=== PATIENT | male | born 1935 | race Caucasian/White ===

== ENCOUNTER 2018-03-09 21:39 | Emergency (ER) | payer MEDICARE, OTHER ==
--- NOTE | 2018-03-09 23:07 | EDM.PDOC ---
ED HPI GENERAL MEDICAL PROBLEM - General Chief Complaint: ENT Problem Stated Complaint: BLOODY NOSE THAT HAS LASTED THROUGHOUT THE DAY. Time Seen by Provider: 03/09/18 21:41 Source of Information: Reports: Patient, Family History Limitations: Reports: No Limitations - History of Present Illness INITIAL COMMENTS - FREE TEXT/NARRATIVE: HISTORY AND PHYSICAL: History of present illness: 83-year-old male presenting emergency department she complained of nosebleed 1 day on Coumadin. Patient states that this morning he began having nosebleeds his left nostril. He has history of this previously. He is on Coumadin for A. fib. Patient states that the nosebleed did stop however then restarted again this evening. At this time the nosebleed has stopped. He denies any other recent symptoms. He denies any lightheadedness, dizziness, or as other signs of anemia. Otherwise patient is healthy. He denies any chest pain, palpitations, shortness of breath, syncopal episodes, or focal neurologic deficits. On exam there is no active bleeding in the left naris. There is quite elated blood in the nostril. Review of systems: As per history of present illness and below otherwise all systems reviewed and negative. Past medical history: As per history of present illness and as reviewed below otherwise noncontributory. Surgical history: As per history of present illness and as reviewed below otherwise noncontributory. Social history: No reported history of drug or alcohol abuse. Family history: As per history of present illness and as reviewed below otherwise noncontributory. Physical exam: HEENT: Atraumatic, normocephalic, pupils reactive, negative for conjunctival pallor or scleral icterus, mucous membranes moist, throat clear, neck supple, nontender, trachea midline. Lungs: Clear to auscultation, breath sounds equal bilaterally, chest nontender. Heart: S1S2, regular, negative for clicks, rubs, or JVD. Abdomen: Soft, nondistended, nontender. Negative for masses or hepatosplenomegaly. Negative for costovertebral tenderness. Pelvis: Stable nontender. Genitourinary: Deferred. Rectal: Deferred. Extremities: Atraumatic, negative for cords or calf pain. Neurovascular unremarkable. Neuro: Awake, alert, oriented. Cranial nerves II through XII unremarkable. Cerebellum unremarkable. Motor and sensory unremarkable throughout. Exam nonfocal. Diagnostics: CBC, BMP, INR Therapeutics: Nasal clip Impression: Epistasis on Coumadin Plan: Patient's INR was 2.9. I did discuss this with him and told him to follow-up with his primary care provider Dr. Ramirez on Saturday. He currently is not having a nosebleed so we did not do any manipulation so as not to disturb the clot that had formed. Did give him nasal clip for at home and told him to use cold compress on the nose to help with coagulation. He should return to emergency department if any new or worsening symptoms. Definitive disposition and diagnosis as appropriate pending reevaluation and review of above. - Related Data Allergies Allergy/AdvReac Type Severity Reaction Status Date / Time No Known Allergies Allergy Verified 03/09/18 22:10 Home Meds: Home Meds Acetaminophen [Tylenol Extra Strength] 1,000 mg PO Q6H PRN 10/24/13 [History] Aspirin/Calcium Carbonate/Mag [Aspirin Buffered 325 mg Tab] 325 mg PO DAILY [History] Calcium Carbonate 600 mg PO DAILY 10/24/13 [History] Diltiazem HCl [Dilt-Xr] 180 mg PO DAILY 10/24/13 [History] Multivitamin [Multivitamins] 1 each PO DAILY 10/24/13 [History] [place]-3 Fatty Acids/DHA/EPA [Megared Plant-[place] 300 mg Cap] 300 mg PO DAILY [History] Sotalol [Betapace, Sorine] 160 mg PO BID 10/24/13 [History] Triamterene/Hydrochlorothiazid [Triamterene-HCTZ 37.5-25 MG] 1 each PO DAILY [History] atorvaSTATin [Lipitor] 10 mg PO BEDTIME 10/24/13 [History] Past Medical History Cardiovascular History: Reports: Afib, Hypertension - Infectious Disease History Infectious Disease History: Reports: Chicken Pox Social & Family History - Tobacco Use Smoking Status *Q: Former Smoker Used Tobacco, but Quit: Yes Month/Year Tobacco Last Used: 1969 - Caffeine Use Caffeine Use: Reports: Coffee, Tea - Recreational Drug Use Recreational Drug Use: No ED ROS GENERAL - Review of Systems Review Of Systems: ROS reveals no pertinent complaints other than HPI. ED EXAM, GENERAL - Physical Exam Exam: See Below Course - Vital Signs Last Recorded V/S: Last Vital Signs Temp 98.3 F 03/09/18 22:07 Pulse 123 H 03/09/18 22:07 Resp 12 03/09/18 22:07 BP 119/77 03/09/18 22:07 Pulse Ox 93 L 03/09/18 22:07 - Orders/Labs/Meds Labs: Laboratory Tests 03/09/18 03/09/18 03/09/18 Range/Units 22:20 22:20 22:20 WBC 10.48 (4.0-11.0) K/uL RBC 4.16 L (4.50-5.90) M/uL Hgb 12.3 L (13.0-17.0) g/dL Hct 37.7 L (38.0-50.0) % MCV 90.6 (80.0-98.0) fL MCH 29.6 (27.0-32.0) pg MCHC 32.6 (31.0-37.0) g/dL RDW Std Deviation 47.9 (28.0-62.0) fl RDW Coeff of Heydi 15 (11.0-15.0) % Plt Count 188 (150-400) K/uL MPV 11.30 (7.40-12.00) fL Neut % (Auto) 69.5 (48.0-80.0) % Lymph % (Auto) 18.8 (16.0-40.0) % [place] % (Auto) 10.9 (0.0-15.0) % Eos % (Auto) 0.6 (0.0-7.0) % Baso % (Auto) 0.2 (0.0-1.5) % Neut # (Auto) 7.3 H (1.4-5.7) K/uL Lymph # (Auto) 2.0 (0.6-2.4) K/uL [place] # (Auto) 1.1 H (0.0-0.8) K/uL Eos # (Auto) 0.1 (0.0-0.7) K/uL Baso # (Auto) 0.0 (0.0-0.1) K/uL Nucleated RBC % 0.0 /100WBC Nucleated RBCs # 0 K/uL INR 2.92 Sodium 137 (136-148) mmol/L Potassium 3.9 (3.5-5.1) mmol/L Chloride 101 (98-107) mmol/L Carbon Dioxide 25.1 (21.0-32.0) mmol/L BUN 28 H (7.0-18.0) mg/dL Creatinine 1.6 H (0.8-1.3) mg/dL Est Cr Clr Drug Dosing 33.85 mL/min Estimated GFR (MDRD) 41.7 ml/min Glucose 202 H (74-106) mg/dL Calcium 9.9 (8.5-10.1) mg/dL Departure - Departure Time of Disposition: 23:06 Disposition: Home, Self-Care 01 Condition: Good Clinical Impression: Epistaxis - Discharge Information Referrals: PCP,None [Primary Care Provider] - Additional Instructions: My general discharge The following information is given to patients seen in the emergency department who are being discharged to home. This information is to outline your options for follow-up care. We provide all patients seen in our emergency department with a follow-up referral. The need for follow-up, as well as the timing and circumstances, are variable depending upon the specifics of your emergency department visit. If you don't have a primary care physician on staff, we will provide you with a referral. We always advise you to contact your personal physician following an emergency department visit to inform them of the circumstance of the visit and for follow-up with them and/or the need for any referrals to a consulting specialist. The emergency department will also refer you to a specialist when appropriate. This referral assures that you have the opportunity for follow-up care with a specialist. All of these measure are taken in an effort to provide you with optimal care, which includes your follow-up. Under all circumstances we always encourage you to contact your private physician who remains a resource for coordinating your care. When calling for follow-up care, please make the office aware that this follow-up is from your recent emergency room visit. If for any reason you are refused follow-up, please contact the [facility] Emergency Department at and asked to speak to the emergency department charge nurse. [address] [address] Follow-up with Dr. Ramirez on Saturday as we discussed. Your INR today was 2.9. May use cold compress unnoticed to help with coagulation as well as nasal clip. Return emergency department if any new or worsening symptoms.
== END 2018-03-09 23:22 | disposition home or self-care (01) ==
LOC: MW.ED 21:39
DX: R04.0 Epistaxis (principal); I48.91 Unspecified atrial fibrillation; Z79.01 Long term (current) use of anticoagulants; I10 Essential (primary) hypertension; Z79.82 Long term (current) use of aspirin; Z79.899 Other long term (current) drug therapy; Z87.891 Personal history of nicotine dependence
CPT/HCPCS: 36415; 80048; 85025; 85610; 99282; 99283

== ENCOUNTER 2018-03-10 04:25 | Emergency (ER) | payer MEDICARE, OTHER ==
--- NOTE | 2018-03-10 04:31 | EDM.PDOC ---
ED HPI GENERAL MEDICAL PROBLEM - General Stated Complaint: BLOODY NOSE Time Seen by Provider: 03/10/18 04:30 Source of Information: Reports: Patient History Limitations: Reports: No Limitations - History of Present Illness INITIAL COMMENTS - FREE TEXT/NARRATIVE: HISTORY AND PHYSICAL: History of present illness: 83-year-old male presenting the emergency department with epistasis on Coumadin. Patient was here earlier this evening with epistasis however bleeding had stopped dairy and he is on Coumadin for A. fib. We did get CBC as well as INR. At that time CBC was unremarkable and INR was 2.9. He normally runs around 2.4. Patient's nosebleed had stopped on its own so patient was discharged with nasal clip and instructions to use cold pack and refrain from blowing nose and follow- up with primary care provider. Patient states around 4:00 this morning he awoke and the leading had started again. It is predominantly from the left nostril. He denies any lightheadedness or other symptoms. On exam there is mild bleeding coming from the left naris. Review of systems: As per history of present illness and below otherwise all systems reviewed and negative. Past medical history: As per history of present illness and as reviewed below otherwise noncontributory. Surgical history: As per history of present illness and as reviewed below otherwise noncontributory. Social history: No reported history of drug or alcohol abuse. Family history: As per history of present illness and as reviewed below otherwise noncontributory. Physical exam: HEENT: Atraumatic, normocephalic, pupils reactive, negative for conjunctival pallor or scleral icterus, mucous membranes moist, throat clear, neck supple, nontender, trachea midline. Lungs: Clear to auscultation, breath sounds equal bilaterally, chest nontender. Heart: S1S2, regular, negative for clicks, rubs, or JVD. Abdomen: Soft, nondistended, nontender. Negative for masses or hepatosplenomegaly. Negative for costovertebral tenderness. Pelvis: Stable nontender. Genitourinary: Deferred. Rectal: Deferred. Extremities: Atraumatic, negative for cords or calf pain. Neurovascular unremarkable. Neuro: Awake, alert, oriented. Cranial nerves II through XII unremarkable. Cerebellum unremarkable. Motor and sensory unremarkable throughout. Exam nonfocal. Diagnostics: [] Therapeutics: Rhino Rocket Impression: Epistasis Plan: Please see H&P. Patient had epistasis continually from the left Song. I did insert a Rhino Rocket without complication. Patient was instructed to return in 24 hours for removal and reexamination. He was discharged in good condition with instructions to follow-up with primary care as well as possible ear nose and throat if epistasis still uncontrolled. Definitive disposition and diagnosis as appropriate pending reevaluation and review of above. - Related Data Allergies Allergy/AdvReac Type Severity Reaction Status Date / Time No Known Allergies Allergy Verified 03/09/18 22:10 Home Meds: Home Meds Acetaminophen [Tylenol Extra Strength] 1,000 mg PO Q6H PRN 10/24/13 [History] Aspirin/Calcium Carbonate/Mag [Aspirin Buffered 325 mg Tab] 325 mg PO DAILY [History] Calcium Carbonate 600 mg PO DAILY 10/24/13 [History] Diltiazem HCl [Dilt-Xr] 180 mg PO DAILY 10/24/13 [History] Multivitamin [Multivitamins] 1 each PO DAILY 10/24/13 [History] [place]-3 Fatty Acids/DHA/EPA [Megared Plant-[place] 300 mg Cap] 300 mg PO DAILY [History] Sotalol [Betapace, Sorine] 160 mg PO BID 10/24/13 [History] Triamterene/Hydrochlorothiazid [Triamterene-HCTZ 37.5-25 MG] 1 each PO DAILY [History] atorvaSTATin [Lipitor] 10 mg PO BEDTIME 10/24/13 [History] Past Medical History Cardiovascular History: Reports: Afib, Hypertension - Infectious Disease History Infectious Disease History: Reports: Chicken Pox Social & Family History - Caffeine Use Caffeine Use: Reports: Coffee, Tea ED ROS GENERAL - Review of Systems Review Of Systems: ROS reveals no pertinent complaints other than HPI. ED EXAM, GENERAL - Physical Exam Exam: See Below Course - Vital Signs Last Recorded V/S: Last Vital Signs Temp 97.8 F 03/10/18 04:37 Pulse 110 H 03/10/18 04:37 Resp 16 03/10/18 04:37 BP 129/83 03/10/18 04:37 Pulse Ox 94 L 03/10/18 04:37 Departure - Departure Time of Disposition: 04:46 Disposition: Home, Self-Care 01 Condition: Good Clinical Impression: Epistaxis - Discharge Information Referrals: PCP,None [Primary Care Provider] - Additional Instructions: My general discharge The following information is given to patients seen in the emergency department who are being discharged to home. This information is to outline your options for follow-up care. We provide all patients seen in our emergency department with a follow-up referral. The need for follow-up, as well as the timing and circumstances, are variable depending upon the specifics of your emergency department visit. If you don't have a primary care physician on staff, we will provide you with a referral. We always advise you to contact your personal physician following an emergency department visit to inform them of the circumstance of the visit and for follow-up with them and/or the need for any referrals to a consulting specialist. The emergency department will also refer you to a specialist when appropriate. This referral assures that you have the opportunity for follow-up care with a specialist. All of these measure are taken in an effort to provide you with optimal care, which includes your follow-up. Under all circumstances we always encourage you to contact your private physician who remains a resource for coordinating your care. When calling for follow-up care, please make the office aware that this follow-up is from your recent emergency room visit. If for any reason you are refused follow-up, please contact the [facility] Emergency Department at and asked to speak to the emergency department charge nurse. [facility] Specialty [facility] - ENT Professional Building [address] [place] [address], [address] [place] [address] [address] Please call and follow-up with Dr. Ramirez on Saturday. Return to the emergency department in 24 hours for reexamination and possible removal of Rhino Rocket. Return to emergency department for any new or worsening symptoms.
== END 2018-03-10 06:07 | disposition home or self-care (01) ==
LOC: MW.ED 04:25
DX: R04.0 Epistaxis (principal); I48.91 Unspecified atrial fibrillation; I10 Essential (primary) hypertension; Z79.01 Long term (current) use of anticoagulants; Z79.82 Long term (current) use of aspirin; Z79.899 Other long term (current) drug therapy
CPT/HCPCS: 99283

== ENCOUNTER 2018-03-11 19:10 | Emergency (ER) | payer MEDICARE, OTHER ==
--- NOTE | 2018-03-11 19:44 | EDM.PDOC ---
ED HPI GENERAL MEDICAL PROBLEM - General Chief Complaint: ENT Problem Stated Complaint: NOSE BLEEDING REMOVE Time Seen by Provider: 03/11/18 19:36 Source of Information: Reports: Patient History Limitations: Reports: No Limitations - History of Present Illness INITIAL COMMENTS - FREE TEXT/NARRATIVE: HISTORY AND PHYSICAL: History of present illness: Patient is an 83-year-old male who presents to the emergency room today for nasal packing removal. Patient was seen on 02/06/2018 and again database management specialist of for epistaxis of the left there. Patient does take Coumadin for atrial fibrillation. Labs and nasal packing was done on 03/10. Since that time patient states he has not noted any posterior nasal drainage or spitting up of blood. He offers no current complaints or concerns. Review of systems: As per history of present illness and below otherwise all systems reviewed and negative. Past medical history: As per history of present illness and as reviewed below otherwise noncontributory. Surgical history: As per history of present illness and as reviewed below otherwise noncontributory. Social history: No reported history of drug or alcohol abuse. Family history: As per history of present illness and as reviewed below otherwise noncontributory. Physical exam: General: Well-developed and well-nourished 83-year-old male. Alert and oriented. Nontoxic appearing and in no acute distress. HEENT: Atraumatic, normocephalic, pupils equal and reactive bilaterally, negative for conjunctival pallor or scleral icterus, nasal packing noted to left there (balloon/rhino rocket), mucous membranes moist, throat clear, neck supple, nontender, trachea midline. No drooling or trismus noted. No meningeal signs Lungs: Clear to auscultation, breath sounds equal bilaterally, chest nontender. Heart: S1S2, regular rate and rhythm without overt murmur Abdomen: Soft, nondistended, nontender. Negative for masses or hepatosplenomegaly. Negative for costovertebral tenderness. Pelvis: Stable nontender. Genitourinary: Deferred. Rectal: Deferred. Skin: Intact, warm, dry. No lesions or rashes noted. Extremities: Atraumatic, negative for cords or calf pain. Neurovascular unremarkable. Neuro: Awake, alert, oriented. Cranial nerves II through XII unremarkable. Cerebellum unremarkable. Motor and sensory unremarkable throughout. Exam nonfocal. Notes: Air was removed from the Rhino Rocket. The nasal packing was easily removed from the left knee air. Patient was allowed to rest with directions for approximately 30 minutes. The nare was reevaluated, no bleeding noted. We discussed supportive care measures and how to prevent future nosebleeds while at home. He will follow-up with his primary care provider in the next 1-2 days. Both patient and voice understanding and are agreeable to plan of care. They deny any further questions or concerns at this time. Diagnostics: None Therapeutics: Removal of Nasal packing Prescription: None Impression: Encounter for nasal packing removal Plan: 1. Avoid blowing your nose or any forceful activities that may cause your nose to rebleed (picking at nose, holding in a sneeze, heavy lifting, etc...) 2. You may use some Vaseline around the external nares. 3. Please follow-up with your primary care provider for further evaluation and management in the next 1-2 days. Return to the ED as needed and as discussed. Definitive disposition and diagnosis as appropriate pending reevaluation and review of above. - Related Data Allergies Allergy/AdvReac Type Severity Reaction Status Date / Time No Known Allergies Allergy Verified 03/11/18 19:25 Home Meds: Home Meds Acetaminophen [Tylenol Extra Strength] 1,000 mg PO Q6H PRN 10/24/13 [History] Calcium Carbonate 600 mg PO DAILY 10/24/13 [History] Diltiazem HCl [Dilt-Xr] 180 mg PO DAILY 10/24/13 [History] Multivitamin [Multivitamins] 1 each PO DAILY 10/24/13 [History] [place]-3 Fatty Acids/DHA/EPA [Megared Plant-[place] 300 mg Cap] 300 mg PO DAILY [History] Sotalol [Betapace, Sorine] 160 mg PO BID 10/24/13 [History] Triamterene/Hydrochlorothiazid [Triamterene-HCTZ 37.5-25 MG] 1 each PO DAILY [History] atorvaSTATin [Lipitor] 10 mg PO BEDTIME 10/24/13 [History] Aspirin [Halfprin] 81 mg PO DAILY 03/11/18 [History] Past Medical History HEENT History: Reports: Other (See Below) Other HEENT History: wears glasse; rhino racket put in for nosebleed Cardiovascular History: Reports: Afib, Hypertension Neurological History: Reports: Other (See Below) Other Neuro History: stroke 3 years ago - Infectious Disease History Infectious Disease History: Reports: Chicken Pox, Measles - Past Surgical History HEENT Surgical History: Reports: None Neurological Surgical History: Reports: None Social & Family History - Family History Family Medical History: Noncontributory - Tobacco Use Smoking Status *Q: Never Smoker Second Hand Smoke Exposure: No - Caffeine Use Caffeine Use: Reports: Coffee, Tea - Recreational Drug Use Recreational Drug Use: No ED ROS ENT - Review of Systems Review Of Systems: ROS reveals no pertinent complaints other than HPI. ED EXAM, ENT - Physical Exam Exam: See Below (See dictation) Course - Vital Signs Last Recorded V/S: Last Vital Signs Temp 98.1 F 03/11/18 19:18 Pulse 74 03/11/18 19:18 Resp 20 03/11/18 19:18 BP 128/75 03/11/18 19:18 Pulse Ox 94 L 03/11/18 19:18 Departure - Departure Time of Disposition: 19:57 Disposition: Home, Self-Care 01 Clinical Impression: Encounter for removal of nasal packing - Discharge Information Referrals: PCP,None [Primary Care Provider] - Forms: ED Department Discharge Additional Instructions: The following information is given to patients seen in the emergency department who are being discharged to home. This information is to outline your options for follow-up care. We provide all patients seen in our emergency department with a follow-up referral. The need for follow-up, as well as the timing and circumstances, are variable depending upon the specifics of your emergency department visit. If you don't have a primary care physician on staff, we will provide you with a referral. We always advise you to contact your personal physician following an emergency department visit to inform them of the circumstance of the visit and for follow-up with them and/or the need for any referrals to a consulting specialist. The emergency department will also refer you to a specialist when appropriate. This referral assures that you have the opportunity for follow-up care with a specialist. All of these measure are taken in an effort to provide you with optimal care, which includes your follow-up. Under all circumstances we always encourage you to contact your private physician who remains a resource for coordinating your care. When calling for follow-up care, please make the office aware that this follow-up is from your recent emergency room visit. If for any reason you are refused follow-up, please contact the [facility] Emergency Department at and asked to speak to the emergency department charge nurse. [facility] [address] [place] [id number] [facility] Specialty Care - ENT [address] [place] [id number] 1. Avoid blowing your nose or any forceful activities that may cause your nose to rebleed (picking at nose, holding in a sneeze, heavy lifting, etc...) 2. You may use some Vaseline around the external nares. 3. Please follow-up with your primary care provider for further evaluation and management in the next 1-2 days. Return to the ED as needed and as discussed.
== END 2018-03-11 20:20 | disposition home or self-care (01) ==
LOC: MW.ED 19:10
DX: Z48.00 Encounter for change or removal of nonsurgical wound dressing (principal); I48.91 Unspecified atrial fibrillation; I10 Essential (primary) hypertension; Z79.82 Long term (current) use of aspirin
CPT/HCPCS: 99282

== ENCOUNTER 2018-03-23 13:32 | Emergency (ER) | payer MEDICARE, OTHER ==
[2018-03-23] MEDS ORDERED: Oxymetazoline 0.05% Nasal Spray 15 ML Bottle NAS ONE (14:02)
[2018-03-23] MEDS ORDERED: Lidocaine 1% with EPINEPHrine 1:100,000 10 ML MDV INJECT ONE (14:03)
[2018-03-23] MEDS ORDERED: Lidocaine 1% with EPINEPHrine 1:100,000 20 ML MDV ONE (14:06)
[2018-03-23] MEDS ORDERED: Lidocaine 1% with EPINEPHrine 1:100,000 20 ML MDV INJECT ONE (14:10)
--- NOTE | 2018-03-23 15:17 | EDM.PDOC ---
ED HPI GENERAL MEDICAL PROBLEM - General Chief Complaint: ENT Problem Stated Complaint: BLOODY NOSE Time Seen by Provider: 03/23/18 13:53 Source of Information: Reports: Patient History Limitations: Reports: No Limitations - History of Present Illness INITIAL COMMENTS - FREE TEXT/NARRATIVE: History of present illness: []Patient started having a nosebleed at noon today is unable to get it to stop. Patient has a history of A. fib on Coumadin bleed 2 weeks ago that was packed. Eyes any other complaints Review of systems: As per history of present illness and below otherwise all systems reviewed and negative. Past medical history: As per history of present illness and as reviewed below otherwise noncontributory. Surgical history: As per history of present illness and as reviewed below otherwise noncontributory. Social history: No reported history of drug or alcohol abuse. Family history: As per history of present illness and as reviewed below otherwise noncontributory. Physical exam: General: Well developed, well nourished in NAD HEENT: Atraumatic, normocephalic, pupils reactive, negative for conjunctival pallor or scleral icterus, mucous membranes moist, throat clear, neck supple, nontender, trachea midline. Lungs: Clear to auscultation, breath sounds equal bilaterally, chest nontender. Heart: S1S2, regular, negative for clicks, rubs, or JVD. Abdomen: Soft, nondistended, nontender. Negative for masses or hepatosplenomegaly. Negative for costovertebral tenderness. Pelvis: Stable nontender. Genitourinary: Deferred. Rectal: Deferred. Extremities: Atraumatic, negative for cords or calf pain. Neurovascular unremarkable. Neuro: Awake, alert, oriented. Cranial nerves II through XII unremarkable. Cerebellum unremarkable. Motor and sensory unremarkable throughout. Exam nonfocal. Skin:warm and dry Diagnostics: CBC, INR equals 2.9 Therapeutics: Left nares packed with Merocel and observed, bleeding subsided ED Course: Uneventful Impression: Current epistaxis, anti coagulated patient Prescriptions: None Plan: Follow-up with primary care return in 48-72 hours for removal of packing or recurrent bleeding. Definitive disposition and diagnosis as appropriate pending reevaluation and review of above. - Related Data Allergies Allergy/AdvReac Type Severity Reaction Status Date / Time No Known Allergies Allergy Verified 03/23/18 13:48 Home Meds: Home Meds Acetaminophen [Tylenol Extra Strength] 1,000 mg PO Q6H PRN 10/24/13 [History] Calcium Carbonate 600 mg PO DAILY 10/24/13 [History] Diltiazem HCl [Dilt-Xr] 180 mg PO DAILY 10/24/13 [History] Multivitamin [Multivitamins] 1 each PO DAILY 10/24/13 [History] Colp-3 Fatty Acids/DHA/EPA [Megared Plant-Colp 300 mg Cap] 300 mg PO DAILY [History] Sotalol [Betapace, Sorine] 160 mg PO BID 10/24/13 [History] Triamterene/Hydrochlorothiazid [Triamterene-HCTZ 37.5-25 MG] 1 each PO DAILY [History] atorvaSTATin [Lipitor] 10 mg PO BEDTIME 10/24/13 [History] Aspirin [Halfprin] 81 mg PO DAILY 03/11/18 [History] Warfarin [Coumadin] 2 mg PO DAILY 03/23/18 [History] Past Medical History HEENT History: Reports: Other (See Below) Other HEENT History: wears glasse; rhino racket put in for nosebleed Cardiovascular History: Reports: Afib, Hypertension Neurological History: Reports: Other (See Below) Other Neuro History: stroke 3 years ago - Infectious Disease History Infectious Disease History: Reports: Chicken Pox, Measles, Mumps - Past Surgical History HEENT Surgical History: Reports: None Neurological Surgical History: Reports: None Social & Family History - Family History Family Medical History: Noncontributory - Tobacco Use Smoking Status *Q: Never Smoker - Caffeine Use Caffeine Use: Reports: Coffee, Tea - Recreational Drug Use Recreational Drug Use: No ED ROS ENT - Review of Systems Review Of Systems: ROS reveals no pertinent complaints other than HPI. ED EXAM, ENT - Physical Exam Exam: See Below (History of present illness) Course - Vital Signs Last Recorded V/S: Last Vital Signs Temp 97.2 F 03/23/18 13:51 Pulse 124 H 03/23/18 13:51 Resp 16 03/23/18 13:51 BP 136/85 03/23/18 13:51 Pulse Ox 92 L 03/23/18 13:51 - Orders/Labs/Meds Labs: Laboratory Tests 09/16/18 09/16/18 Range/Units 14:28 14:28 WBC 12.55 H (4.0-11.0) K/uL RBC 4.36 L (4.50-5.90) M/uL Hgb 12.9 L (13.0-17.0) g/dL Hct 39.1 (38.0-50.0) % MCV 89.7 (80.0-98.0) fL MCH 29.6 (27.0-32.0) pg MCHC 33.0 (31.0-37.0) g/dL RDW Std Deviation 47.6 (28.0-62.0) fl RDW Coeff of Heydi 15 (11.0-15.0) % Plt Count 176 (150-400) K/uL MPV 11.90 (7.40-12.00) fL Add Manual Diff YES Neutrophils % (Manual) 70 (48.0-80.0) % Band Neutrophils % 5 % Lymphocytes % (Manual) 11 L (16.0-40.0) % Monocytes % (Manual) 14 (0.0-15.0) % Nucleated RBC % 0.0 /100WBC Absolute Seg Neuts 8.8 H (1.4-5.7) Band Neutrophils # 0.6 Lymphocytes # (Manual) 1.4 (0.6-2.4) Monocytes # (Manual) 1.8 H (0.0-0.8) Nucleated RBCs # 0 K/uL INR 2.96 Meds: Medications Discontinued Medications Generic Name Dose Route Start Last Admin Trade Name Freq PRN Reason Stop Dose Admin Lidocaine/Epinephrine 10 ml 03/23/18 14:03 03/23/18 14:32 Xylocaine 1% With Epinephrine 1:100,000 INJECT 03/23/18 14:04 Not Given ONETIME ONE Lidocaine/Epinephrine Confirm 03/23/18 14:06 03/23/18 14:10 Xylocaine 1% With Epinephrine 1:100,000 Administered 03/23/18 14:07 Not Given Dose 20 ml .ROUTE .STK-MED ONE Lidocaine/Epinephrine 20 ml 03/23/18 14:10 03/23/18 14:44 Xylocaine 1% With Epinephrine 1:100,000 INJECT 03/23/18 14:11 20 ml ONETIME ONE Administration Oxymetazoline HCl 5 ml 03/23/18 14:02 03/23/18 14:54 Afrin Original 0.05% Nasal Ambrose ANDIE 03/23/18 14:03 1 spr ONETIME ONE Administration Departure - Departure Time of Disposition: 15:16 Disposition: Home, Self-Care 01 Condition: Good Clinical Impression: Epistaxis - Discharge Information *PRESCRIPTION DRUG MONITORING PROGRAM REVIEWED*: No *COPY OF PRESCRIPTION DRUG MONITORING REPORT IN PATIENT AFIA: No Referrals: PCP,None [Primary Care Provider] - Additional Instructions: The following information is given to patients seen in the emergency department who are being discharged to home. This information is to outline your options for follow-up care. We provide all patients seen in our emergency department with a follow-up referral. The need for follow-up, as well as the timing and circumstances, are variable depending upon the specifics of your emergency department visit. If you don't have a primary care physician on staff, we will provide you with a referral. We always advise you to contact your personal physician following an emergency department visit to inform them of the circumstance of the visit and for follow-up with them and/or the need for any referrals to a consulting specialist. The emergency department will also refer you to a specialist when appropriate. This referral assures that you have the opportunity for follow-up care with a specialist. All of these measure are taken in an effort to provide you with optimal care, which includes your follow-up. Under all circumstances we always encourage you to contact your private physician who remains a resource for coordinating your care. When calling for follow-up care, please make the office aware that this follow-up is from your recent emergency room visit. If for any reason you are refused follow-up, please contact the [facility] Emergency Department at and asked to speak to the emergency department charge nurse. Return to ER for removal of packing in 48-72 hours. Return to ER if bleeding recurs. Hold tonight's dose of Coumadin to home tomorrow regular dosage. [facility] [address] [place] [id number]
== END 2018-03-23 15:28 | disposition home or self-care (01) ==
LOC: MW.ED 13:32
DX: R04.0 Epistaxis (principal); I48.91 Unspecified atrial fibrillation; I10 Essential (primary) hypertension; Z79.01 Long term (current) use of anticoagulants; Z79.82 Long term (current) use of aspirin
CPT/HCPCS: 36415; 85025; 85610; 99283

== ENCOUNTER 2018-03-27 10:44 | Inpatient (IN) | payer MEDICARE, OTHER ==
[2018-03-27] MEDS ORDERED: Sodium Chloride 0.9% 2.5 ML Syringe FLUSH PRN (11:21)
[2018-03-27] MEDS ORDERED: Sodium Chloride 0.9% 10 ML Syringe FLUSH PRN (11:21)
[2018-03-27] MEDS ORDERED: Albuterol/Ipratropium 3.0-0.5 MG/3 ML Neb Soln NEB ONE (11:26)
--- NOTE | 2018-03-27 11:27 | EDM.PDOC ---
ED HPI GENERAL MEDICAL PROBLEM - General Chief Complaint: ENT Problem Stated Complaint: TUBE REMOVAL FROM NOSE Time Seen by Provider: 03/27/18 11:26 Source of Information: Reports: Patient History Limitations: Reports: No Limitations - History of Present Illness INITIAL COMMENTS - FREE TEXT/NARRATIVE: HISTORY AND PHYSICAL: History of present illness: Patient is an 83-year-old male who presents to the ED to have nasal packing removed. Patient was seen on 03/23 with epistaxis of the left nares. Patient is on coumadin for atrial fibrillation. He denies any posterior nasal drainage or coughing/spitting up blood. Patient has a follow up with Dr. Craig tomorrow. Patient also notes that he has been short of breath for the past month or so. notes that he has been more tired and less energy. He states he is coughing and does have green productive sputum. He denies any fevers, chills, chest pain, nausea, vomiting, abdominal pain. Patient denies smoking history of history of COPD/asthma. Review of systems: As per history of present illness and below otherwise all systems reviewed and negative. Past medical history: As per history of present illness and as reviewed below otherwise noncontributory. Surgical history: As per history of present illness and as reviewed below otherwise noncontributory. Social history: No reported history of drug or alcohol abuse. Family history: As per history of present illness and as reviewed below otherwise noncontributory. Physical exam: General: Patient sitting comfortably in no acute distress and nontoxic appearing HEENT: Nares without epistaxis. Atraumatic, normocephalic, pupils reactive, negative for conjunctival pallor or scleral icterus, mucous membranes moist, throat clear, neck supple, nontender, trachea midline. No meningeal signs. Lungs: Clear to auscultation, breath sounds equal bilaterally, chest nontender. Heart: Tachycardic, irregular, negative for clicks, rubs, or overt murmur. No LE edema. Abdomen: Soft, nondistended, nontender. Negative for masses or hepatosplenomegaly. Negative for costovertebral tenderness. Pelvis: Stable nontender. Genitourinary: Deferred. Rectal: Deferred. Extremities: Atraumatic, negative for cords or calf pain. Neurovascular unremarkable. Neuro: Awake, alert, oriented. Cranial nerves II through XII unremarkable. Cerebellum unremarkable. Motor and sensory unremarkable throughout. Exam nonfocal. Notes: Diagnostics: CBC, CMP, troponin, lipase, UA, UC, BNP EKG, CXR Therapeutics: 500mg Normal Saline IV Cardizem 25mg IV + 20mg IV Levaquin 750mg Prescriptions: Impression: Atrial fibrillation with RVR Pneumonia Plan: Discussed with Dr. Griffith, patient admitted to inpatient for IV antibiotics and telemetry. Definitive disposition and diagnosis as appropriate pending reevaluation and review of above. - Related Data Allergies Allergy/AdvReac Type Severity Reaction Status Date / Time No Known Allergies Allergy Verified 03/27/18 11:05 Home Meds: Home Meds Acetaminophen [Tylenol Extra Strength] 1,000 mg PO Q6H PRN 10/24/13 [History] Calcium Carbonate 600 mg PO DAILY 10/24/13 [History] Diltiazem HCl [Dilt-Xr] 180 mg PO DAILY 10/24/13 [History] Multivitamin [Multivitamins] 1 each PO DAILY 10/24/13 [History] Rozet-3 Fatty Acids/DHA/EPA [Megared Plant-Rozet 300 mg Cap] 300 mg PO DAILY [History] Sotalol [Betapace, Sorine] 160 mg PO BID 10/24/13 [History] Triamterene/Hydrochlorothiazid [Triamterene-HCTZ 37.5-25 MG] 1 each PO DAILY [History] atorvaSTATin [Lipitor] 10 mg PO BEDTIME 10/24/13 [History] Aspirin [Halfprin] 81 mg PO DAILY 03/11/18 [History] Warfarin [Coumadin] 2 mg PO DAILY 03/23/18 [History] Past Medical History HEENT History: Reports: Other (See Below) Other HEENT History: wears glasse; rhino racket put in for nosebleed Cardiovascular History: Reports: Afib, Hypertension Neurological History: Reports: Other (See Below) Other Neuro History: stroke 3 years ago Hematologic History: Reports: Anticoagulation Therapy - Infectious Disease History Infectious Disease History: Reports: Chicken Pox, Measles, Mumps - Past Surgical History HEENT Surgical History: Reports: None Neurological Surgical History: Reports: None Social & Family History - Family History Family Medical History: Noncontributory - Tobacco Use Smoking Status *Q: Unknown Ever Smoked Second Hand Smoke Exposure: No - Caffeine Use Caffeine Use: Reports: Coffee - Recreational Drug Use Recreational Drug Use: No ED ROS ENT - Review of Systems Review Of Systems: ROS reveals no pertinent complaints other than HPI. ED EXAM, ENT - Physical Exam Exam: See Below (see dictation) Course - Vital Signs Last Recorded V/S: Last Vital Signs Temp 35.6 C 03/27/18 11:03 Pulse 126 H 03/27/18 11:03 Resp 24 H 03/27/18 11:03 BP 111/82 03/27/18 11:03 Pulse Ox 93 L 03/27/18 11:03 - Orders/Labs/Meds Orders: Active Orders 24 hr Category Date Time Status Admission Status [Patient Status] [ADT] Stat ADT 03/27/18 13:56 Ordered Cardiac Monitoring [RC] . DIRECTED Care 03/27/18 11:55 Active EKG Documentation Completion [RC] STAT Care 03/27/18 11:21 Active Pulse Oximetry [RC] ASDIRECTED Care 03/27/18 11:21 Active RT Aerosol Therapy [RC] ASDIRECTED Care 03/27/18 11:26 Inactive CULTURE BLOOD [BC] Stat Lab 03/27/18 13:34 Ordered CULTURE BLOOD [BC] Stat Lab 03/27/18 13:34 Ordered CULTURE URINE [RM] Stat Lab 03/27/18 11:21 Ordered UA W/MICROSCOPIC [URIN] Stat Lab 03/27/18 11:21 Ordered Levofloxacin/Dextrose 5%-Water [Levaquin in D5W 750 MG/ Med 03/27/18 13:55 Ordered 150 ML] 750 mg Premix Bag 1 bag IV ONETIME Sodium Chloride 0.9% [Normal Saline] 500 ml Med 03/27/18 11:30 Active IV STAT Sodium Chloride 0.9% [Saline Flush] Med 03/27/18 11:21 Active 10 ml FLUSH ASDIRECTED PRN Sodium Chloride 0.9% [Saline Flush] Med 03/27/18 11:21 Active 2.5 ml FLUSH ASDIRECTED PRN Blood Culture x2 Reflex Set [OM.PC] Stat Oth 03/27/18 13:34 Ordered Saline Lock Insert [OM.PC] Stat Oth 03/27/18 11:21 Ordered Medication Orders Sodium Chloride (Normal Saline) 500 mls @ 999 mls/hr IV STAT LORENA Last Admin: 03/27/18 11:37 Dose: 999 mls/hr Levofloxacin/Dextrose 750 mg/ (Premix) 150 mls @ 100 mls/hr IV ONETIME ONE Stop: 03/27/18 15:24 Sodium Chloride (Saline Flush) 10 ml FLUSH ASDIRECTED PRN PRN Reason: Keep Vein Open Last Admin: 03/27/18 11:37 Dose: 10 ml Sodium Chloride (Saline Flush) 2.5 ml FLUSH ASDIRECTED PRN PRN Reason: Keep Vein Open Last Admin: 03/27/18 11:37 Dose: 2.5 ml Labs: Laboratory Tests 03/27/18 03/27/18 03/27/18 Range/Units 11:27 11:27 11:27 WBC 12.34 H (4.0-11.0) K/uL RBC 4.41 L (4.50-5.90) M/uL Hgb 13.3 (13.0-17.0) g/dL Hct 39.7 (38.0-50.0) % MCV 90.0 (80.0-98.0) fL MCH 30.2 (27.0-32.0) pg MCHC 33.5 (31.0-37.0) g/dL RDW Std Deviation 47.7 (28.0-62.0) fl RDW Coeff of Heydi 15 (11.0-15.0) % Plt Count 193 (150-400) K/uL MPV 11.70 (7.40-12.00) fL Neut % (Auto) 73.3 (48.0-80.0) % Lymph % (Auto) 10.7 L (16.0-40.0) % [place] % (Auto) 15.7 H (0.0-15.0) % Eos % (Auto) 0.2 (0.0-7.0) % Baso % (Auto) 0.1 (0.0-1.5) % Neut # (Auto) 9.0 H (1.4-5.7) K/uL Lymph # (Auto) 1.3 (0.6-2.4) K/uL [place] # (Auto) 1.9 H (0.0-0.8) K/uL Eos # (Auto) 0.0 (0.0-0.7) K/uL Baso # (Auto) 0.0 (0.0-0.1) K/uL Nucleated RBC % 0.0 /100WBC Nucleated RBCs # 0 K/uL INR Sodium 135 L (136-148) mmol/L Potassium 3.5 (3.5-5.1) mmol/L Chloride 99 (98-107) mmol/L Carbon Dioxide 28.6 (21.0-32.0) mmol/L BUN 24 H (7.0-18.0) mg/dL Creatinine 1.5 H (0.8-1.3) mg/dL Est Cr Clr Drug Dosing 34.85 mL/min Estimated GFR (MDRD) 44.9 ml/min Glucose 160 H (74-106) mg/dL Calcium 10.0 (8.5-10.1) mg/dL Total Bilirubin 0.9 (0.2-1.0) mg/dL AST 32 (15-37) IU/L ALT 54 (14-63) IU/L Alkaline Phosphatase 112 (46-116) U/L Troponin I < 0.050 (0.000-0.056) ng/mL B-Natriuretic Peptide 439 H (<100) PG/ML Total Protein 7.6 (6.4-8.2) g/dL Albumin 2.7 L (3.4-5.0) g/dL Globulin 4.9 H (2.0-3.5) g/dL Albumin/Globulin Ratio 0.6 L (1.3-2.8) Lipase 185 (73-393) U/L 03/27/18 Range/Units 11:27 WBC (4.0-11.0) K/uL RBC (4.50-5.90) M/uL Hgb (13.0-17.0) g/dL Hct (38.0-50.0) % MCV (80.0-98.0) fL MCH (27.0-32.0) pg MCHC (31.0-37.0) g/dL RDW Std Deviation (28.0-62.0) fl RDW Coeff of Heydi (11.0-15.0) % Plt Count (150-400) K/uL MPV (7.40-12.00) fL Neut % (Auto) (48.0-80.0) % Lymph % (Auto) (16.0-40.0) % [place] % (Auto) (0.0-15.0) % Eos % (Auto) (0.0-7.0) % Baso % (Auto) (0.0-1.5) % Neut # (Auto) (1.4-5.7) K/uL Lymph # (Auto) (0.6-2.4) K/uL [place] # (Auto) (0.0-0.8) K/uL Eos # (Auto) (0.0-0.7) K/uL Baso # (Auto) (0.0-0.1) K/uL Nucleated RBC % /100WBC Nucleated RBCs # K/uL INR 2.55 Sodium (136-148) mmol/L Potassium (3.5-5.1) mmol/L Chloride (98-107) mmol/L Carbon Dioxide (21.0-32.0) mmol/L BUN (7.0-18.0) mg/dL Creatinine (0.8-1.3) mg/dL Est Cr Clr Drug Dosing mL/min Estimated GFR (MDRD) ml/min Glucose (74-106) mg/dL Calcium (8.5-10.1) mg/dL Total Bilirubin (0.2-1.0) mg/dL AST (15-37) IU/L ALT (14-63) IU/L Alkaline Phosphatase (46-116) U/L Troponin I (0.000-0.056) ng/mL B-Natriuretic Peptide (<100) PG/ML Total Protein (6.4-8.2) g/dL Albumin (3.4-5.0) g/dL Globulin (2.0-3.5) g/dL Albumin/Globulin Ratio (1.3-2.8) Lipase (73-393) U/L Meds: Medications Generic Name Dose Route Start Last Admin Trade Name Freq PRN Reason Stop Dose Admin Sodium Chloride 500 mls @ 999 mls/hr 03/27/18 11:30 03/27/18 11:37 Normal Saline IV 999 mls/hr STAT LORENA Administration Levofloxacin/Dextrose 750 mg/ 150 mls @ 100 mls/hr 03/27/18 13:55 Premix IV 03/27/18 15:24 ONETIME ONE Sodium Chloride 10 ml 03/27/18 11:21 03/27/18 11:37 Saline Flush FLUSH 10 ml ASDIRECTED PRN Administration Keep Vein Open Sodium Chloride 2.5 ml 03/27/18 11:21 03/27/18 11:37 Saline Flush FLUSH 2.5 ml ASDIRECTED PRN Administration Keep Vein Open Discontinued Medications Generic Name Dose Route Start Last Admin Trade Name Freq PRN Reason Stop Dose Admin Albuterol/Ipratropium 3 ml 03/27/18 11:26 03/27/18 11:33 Duoneb 3.0-0.5 Mg/3 Ml NEB 03/27/18 11:27 Not Given ONETIME ONE Diltiazem HCl 20 mg 03/27/18 11:33 03/27/18 12:27 Diltiazem IVPUSH 03/27/18 11:34 20 mg ONETIME ONE Administration Diltiazem HCl 25 mg 03/27/18 12:52 03/27/18 13:32 Diltiazem IVPUSH 03/27/18 12:53 25 mg ONETIME ONE Administration Departure - Departure Time of Disposition: 14:00 Disposition: Admitted As Inpatient 68 Condition: Good Clinical Impression: Pneumonia, Atrial fibrillation with RVR - Discharge Information Referrals: PCP,None [Primary Care Provider] - Forms: ED Department Discharge - My Orders Last 24 Hours: My Active Orders 03/27/18 11:21 EKG Documentation Completion [RC] STAT Pulse Oximetry [RC] ASDIRECTED CULTURE URINE [RM] Stat UA W/MICROSCOPIC [URIN] Stat Sodium Chloride 0.9% [Saline Flush] 10 ml FLUSH ASDIRECTED PRN Sodium Chloride 0.9% [Saline Flush] 2.5 ml FLUSH ASDIRECTED PRN Saline Lock Insert [OM.PC] Stat 03/27/18 11:26 RT Aerosol Therapy [RC] ASDIRECTED 03/27/18 11:30 Sodium Chloride 0.9% [Normal Saline] 500 ml IV STAT 03/27/18 11:55 Cardiac Monitoring [RC] . DIRECTED 03/27/18 13:34 CULTURE BLOOD [BC] Stat CULTURE BLOOD [BC] Stat Blood Culture x2 Reflex Set [OM.PC] Stat 03/27/18 13:55 Levofloxacin/Dextrose 5%-Water [Levaquin in D5W 750 MG/150 ML] 750 mg Premix Bag 1 bag IV ONETIME 03/27/18 13:56 Admission Status [Patient Status] [ADT] Stat - Assessment/Plan Last 24 Hours: My Active Orders 03/27/18 11:21 EKG Documentation Completion [RC] STAT Pulse Oximetry [RC] ASDIRECTED CULTURE URINE [RM] Stat UA W/MICROSCOPIC [URIN] Stat Sodium Chloride 0.9% [Saline Flush] 10 ml FLUSH ASDIRECTED PRN Sodium Chloride 0.9% [Saline Flush] 2.5 ml FLUSH ASDIRECTED PRN Saline Lock Insert [OM.PC] Stat 03/27/18 11:26 RT Aerosol Therapy [RC] ASDIRECTED 03/27/18 11:30 Sodium Chloride 0.9% [Normal Saline] 500 ml IV STAT 03/27/18 11:55 Cardiac Monitoring [RC] . DIRECTED 03/27/18 13:34 CULTURE BLOOD [BC] Stat CULTURE BLOOD [BC] Stat Blood Culture x2 Reflex Set [OM.PC] Stat 03/27/18 13:55 Levofloxacin/Dextrose 5%-Water [Levaquin in D5W 750 MG/150 ML] 750 mg Premix Bag 1 bag IV ONETIME 03/27/18 13:56 Admission Status [Patient Status] [ADT] Stat
[2018-03-27] MEDS ORDERED: Sodium Chloride 0.9% 500 ML IV SCH (11:30)
[2018-03-27] MEDS ORDERED: Diltiazem 25 MG/5 ML SDV IVPUSH ONE ×2 (11:33→12:52)
[2018-03-27 12:11] LABS: CHLORIDE,CL 99 mmol/L (98-107); SODIUM,NA 135 mmol/L (136-148)
--- NOTE | 2018-03-27 13:31 | CR ---
EXAMINATION: Portable chest radiograph. HISTORY: Shortness of breath. FINDINGS: The trachea is midline. The cardiomediastinal silhouette is within normal limits. Right basilar and p erihilar consolidation is noted. A minimal right pleural effusion is not excluded. No pneumothorax. Osseous structures appear unremarkable. IMPRESSION: Right perihilar and basilar consolidation, likely pneumonia.
[2018-03-27] MEDS ORDERED: Levofloxacin/Dextrose 5%-Water 750 MG in Premix Bag 1 BAG IV ONE (13:55)
--- NOTE | 2018-03-27 16:46 | PCM.HP ---
H&P History of Present Illness - General Date of Service: 03/27/18 Admit Problem/Dx: Admission Diagnosis/Problem Admission Diagnosis/Problem Pneumonia - History of Present Illness Initial Comments - Free Text/Narative: He was seen recently for a nose bleed. He is on warfarin for atrial fibrillation. He was here to have the packing removed. His states that he has been coughing. He states that he has felt chilled but denies fever. She states that he seems tired and short of breath and slightly confused at times but he denies any shortness of breath. He only came to get the nasal packing removed and did not think anything else was wrong. He lives with his . He still works , driving a gravel truck. - Related Data Allergies/Adverse Reactions: Allergies Allergy/AdvReac Type Severity Reaction Status Date / Time No Known Allergies Allergy Verified 03/27/18 11:05 Home Medications: Home Meds Acetaminophen [Tylenol Extra Strength] 1,000 mg PO Q6H PRN 10/24/13 [History] Calcium Carbonate 600 mg PO DAILY 10/24/13 [History] Diltiazem HCl [Dilt-Xr] 180 mg PO DAILY 10/24/13 [History] Multivitamin [Multivitamins] 1 each PO DAILY 10/24/13 [History] [place]-3 Fatty Acids/DHA/EPA [[place] 300 mg Cap] 300 mg PO DAILY [History] Sotalol [Betapace, Sorine] 160 mg PO BID 10/24/13 [History] Triamterene/Hydrochlorothiazid [Triamterene-HCTZ 37.5-25 MG] 1 each PO DAILY [History] atorvaSTATin [Lipitor] 10 mg PO BEDTIME 10/24/13 [History] Aspirin [Halfprin] 81 mg PO DAILY 03/11/18 [History] Warfarin [Coumadin] 2 mg PO DAILY 03/23/18 [History] Past Medical History HEENT History: Reports: Other (See Below) Other HEENT History: wears glasse; rhino racket put in for nosebleed Cardiovascular History: Reports: Afib, Hypertension Respiratory History: Denies: COPD Gastrointestinal History: Denies: Cirrhosis Neurological History: Reports: Other (See Below) (He reports that he had a full recovery of neurologic function as far as he can determine.) Other Neuro History: stroke 3 years ago Endocrine/Metabolic History: Denies: Byron's Disease, Diabetes, Type I, Diabetes, Type II Hematologic History: Reports: Anticoagulation Therapy Immunologic History: Denies: AIDS, HIV - Infectious Disease History Infectious Disease History: Reports: Chicken Pox, Measles, Mumps - Past Surgical History HEENT Surgical History: Reports: None Neurological Surgical History: Reports: None Social & Family History - Family History Family Medical History: Noncontributory - Tobacco Use Smoking Status *Q: Unknown Ever Smoked Second Hand Smoke Exposure: No - Caffeine Use Caffeine Use: Reports: Coffee - Recreational Drug Use Recreational Drug Use: No H&P Review of Systems - Review of Systems: Review Of Systems: See Below General: Reports: Chills. Denies: Fever HEENT: Reports: Other (recent left nasal bleeding as per HPI) Pulmonary: Reports: Shortness of Breath, Cough Cardiovascular: Denies: Chest Pain, Palpitations Gastrointestinal: Denies: Abdominal Pain, Bloody Stool Genitourinary: Denies: Dysuria, Frequency, Burning, Hematuria Skin: Denies: Cyanosis Neurological: Reports: Confusion (as per hpi) Exam - Exam Exam: See Below - Vital Signs Vital Signs: Last Vital Signs Temp 96.0 F 03/27/18 11:03 Pulse 126 H 03/27/18 11:03 Resp 24 H 03/27/18 11:03 BP 111/82 03/27/18 11:03 Pulse Ox 93 L 03/27/18 11:03 Weight: 91.6 kg - Exam General: Alert, Cooperative HEENT: EOMI Neck: Supple Lungs: Other (coarse rhonchi right more than left) Cardiovascular: Irregular Rhythm. No: Systolic Murmur, Diastolic Murmur GI/Abdominal Exam: Soft, Non-Tender (Male) Exam: Deferred Rectal (Males) Exam: Deferred Extremities: No Pedal Edema Neurological: Normal Speech Neuro Extensive - Motor, Sensory, Reflexes: No: Facial palsy (L), Facial Palsy ( R), Hemeplagia (R), Hemeplagia (L) Psychiatric: Alert. No: Depressed (cxr shows extensive infiltrate right lung field) - Patient Data Lab Results Last 24 hrs: Laboratory Results - last 24 hr 03/27/18 03/27/18 03/27/18 Range/Units 11:27 11:27 11:27 WBC 12.34 H (4.0-11.0) K/uL RBC 4.41 L (4.50-5.90) M/uL Hgb 13.3 (13.0-17.0) g/dL Hct 39.7 (38.0-50.0) % MCV 90.0 (80.0-98.0) fL MCH 30.2 (27.0-32.0) pg MCHC 33.5 (31.0-37.0) g/dL RDW Std Deviation 47.7 (28.0-62.0) fl RDW Coeff of Heydi 15 (11.0-15.0) % Plt Count 193 (150-400) K/uL MPV 11.70 (7.40-12.00) fL Neut % (Auto) 73.3 (48.0-80.0) % Lymph % (Auto) 10.7 L (16.0-40.0) % [place] % (Auto) 15.7 H (0.0-15.0) % Eos % (Auto) 0.2 (0.0-7.0) % Baso % (Auto) 0.1 (0.0-1.5) % Neut # (Auto) 9.0 H (1.4-5.7) K/uL Lymph # (Auto) 1.3 (0.6-2.4) K/uL [place] # (Auto) 1.9 H (0.0-0.8) K/uL Eos # (Auto) 0.0 (0.0-0.7) K/uL Baso # (Auto) 0.0 (0.0-0.1) K/uL Nucleated RBC % 0.0 /100WBC Nucleated RBCs # 0 K/uL INR Sodium 135 L (136-148) mmol/L Potassium 3.5 (3.5-5.1) mmol/L Chloride 99 (98-107) mmol/L Carbon Dioxide 28.6 (21.0-32.0) mmol/L BUN 24 H (7.0-18.0) mg/dL Creatinine 1.5 H (0.8-1.3) mg/dL Est Cr Clr Drug Dosing 34.85 mL/min Estimated GFR (MDRD) 44.9 ml/min Glucose 160 H (74-106) mg/dL Calcium 10.0 (8.5-10.1) mg/dL Total Bilirubin 0.9 (0.2-1.0) mg/dL AST 32 (15-37) IU/L ALT 54 (14-63) IU/L Alkaline Phosphatase 112 (46-116) U/L Troponin I < 0.050 (0.000-0.056) ng/mL B-Natriuretic Peptide 439 H (<100) PG/ML Total Protein 7.6 (6.4-8.2) g/dL Albumin 2.7 L (3.4-5.0) g/dL Globulin 4.9 H (2.0-3.5) g/dL Albumin/Globulin Ratio 0.6 L (1.3-2.8) Lipase 185 (73-393) U/L Urine Color Urine Appearance Urine pH (5.0-8.0) Ur Specific [place] (1.001-1.035) Urine Protein (NEGATIVE) mg/dL Urine Glucose (UA) (NEGATIVE) mg/dL Urine Ketones (NEGATIVE) mg/dL Urine Occult Blood (NEGATIVE) Urine Nitrite (NEGATIVE) Urine Bilirubin (NEGATIVE) Urine Urobilinogen (<2.0) EU/dL Ur Leukocyte Esterase (NEGATIVE) Urine RBC (0-2/HPF) Urine WBC (0-5/HPF) Ur Epithelial Cells (NONE-FEW) Amorphous Sediment (NEGATIVE) Urine Bacteria (NEGATIVE) 03/27/18 03/27/18 Range/Units 11:27 14:36 WBC (4.0-11.0) K/uL RBC (4.50-5.90) M/uL Hgb (13.0-17.0) g/dL Hct (38.0-50.0) % MCV (80.0-98.0) fL MCH (27.0-32.0) pg MCHC (31.0-37.0) g/dL RDW Std Deviation (28.0-62.0) fl RDW Coeff of Heydi (11.0-15.0) % Plt Count (150-400) K/uL MPV (7.40-12.00) fL Neut % (Auto) (48.0-80.0) % Lymph % (Auto) (16.0-40.0) % [place] % (Auto) (0.0-15.0) % Eos % (Auto) (0.0-7.0) % Baso % (Auto) (0.0-1.5) % Neut # (Auto) (1.4-5.7) K/uL Lymph # (Auto) (0.6-2.4) K/uL [place] # (Auto) (0.0-0.8) K/uL Eos # (Auto) (0.0-0.7) K/uL Baso # (Auto) (0.0-0.1) K/uL Nucleated RBC % /100WBC Nucleated RBCs # K/uL INR 2.55 Sodium (136-148) mmol/L Potassium (3.5-5.1) mmol/L Chloride (98-107) mmol/L Carbon Dioxide (21.0-32.0) mmol/L BUN (7.0-18.0) mg/dL Creatinine (0.8-1.3) mg/dL Est Cr Clr Drug Dosing mL/min Estimated GFR (MDRD) ml/min Glucose (74-106) mg/dL Calcium (8.5-10.1) mg/dL Total Bilirubin (0.2-1.0) mg/dL AST (15-37) IU/L ALT (14-63) IU/L Alkaline Phosphatase (46-116) U/L Troponin I (0.000-0.056) ng/mL B-Natriuretic Peptide (<100) PG/ML Total Protein (6.4-8.2) g/dL Albumin (3.4-5.0) g/dL Globulin (2.0-3.5) g/dL Albumin/Globulin Ratio (1.3-2.8) Lipase (73-393) U/L Urine Color YELLOW Urine Appearance CLEAR Urine pH 6.0 (5.0-8.0) Ur Specific [place] 1.010 (1.001-1.035) Urine Protein NEGATIVE (NEGATIVE) mg/dL Urine Glucose (UA) NEGATIVE (NEGATIVE) mg/dL Urine Ketones NEGATIVE (NEGATIVE) mg/dL Urine Occult Blood NEGATIVE (NEGATIVE) Urine Nitrite NEGATIVE (NEGATIVE) Urine Bilirubin NEGATIVE (NEGATIVE) Urine Urobilinogen 1.0 (<2.0) EU/dL Ur Leukocyte Esterase NEGATIVE (NEGATIVE) Urine RBC NONE SEEN (0-2/HPF) Urine WBC 0-1 (0-5/HPF) Ur Epithelial Cells RARE (NONE-FEW) Amorphous Sediment RARE (NEGATIVE) Urine Bacteria RARE (NEGATIVE) Result Diagrams: 03/27/18 11:27 03/27/18 11:27 - Problem List (1) Atrial fibrillation with RVR SNOMED Code(s): 363560312670025 ICD Code: I48.91 - UNSPECIFIED ATRIAL FIBRILLATION Status: Acute Current Visit: Yes (2) Pneumonia SNOMED Code(s): 505920777 ICD Code: J18.9 - PNEUMONIA, UNSPECIFIED ORGANISM Status: Acute Current Visit: Yes (3) Encounter for removal of nasal packing SNOMED Code(s): 314534205 ICD Code: Z48.00 - ENCOUNTER FOR CHANGE OR REMOVAL OF NONSURG WOUND DRESSING Status: Acute Current Visit: No (4) Chronic kidney disease SNOMED Code(s): 937560704 ICD Code: N18.9 - CHRONIC KIDNEY DISEASE, UNSPECIFIED Status: Acute Current Visit: Yes Problem List Initiated/Reviewed/Updated: Yes Orders Last 24hrs: Active Orders 24 hr Category Date Time Status Admission Status [Patient Status] [ADT] Stat ADT 03/27/18 13:56 Active Cardiac Monitoring [RC] . DIRECTED Care 03/27/18 11:55 Active EKG Documentation Completion [RC] STAT Care 03/27/18 11:21 Active Pulse Oximetry [RC] ASDIRECTED Care 03/27/18 11:21 Active RT Aerosol Therapy [RC] ASDIRECTED Care 03/27/18 11:26 Inactive CULTURE BLOOD [BC] Stat Lab 03/27/18 13:58 Received CULTURE BLOOD [BC] Stat Lab 03/27/18 14:05 Received CULTURE URINE [RM] Stat Lab 03/27/18 11:21 Received Sodium Chloride 0.9% [Normal Saline] 500 ml Med 03/27/18 11:30 Active IV STAT Sodium Chloride 0.9% [Saline Flush] Med 03/27/18 11:21 Active 10 ml FLUSH ASDIRECTED PRN Sodium Chloride 0.9% [Saline Flush] Med 03/27/18 11:21 Active 2.5 ml FLUSH ASDIRECTED PRN Blood Culture x2 Reflex Set [OM.PC] Stat Oth 03/27/18 13:34 Ordered Saline Lock Insert [OM.PC] Stat Oth 03/27/18 11:21 Ordered Medication Orders Sodium Chloride (Normal Saline) 500 mls @ 999 mls/hr IV STAT [facility] Last Admin: 03/27/18 11:37 Dose: 999 mls/hr Sodium Chloride (Saline Flush) 10 ml FLUSH ASDIRECTED PRN PRN Reason: Keep Vein Open Last Admin: 03/27/18 11:37 Dose: 10 ml Sodium Chloride (Saline Flush) 2.5 ml FLUSH ASDIRECTED PRN PRN Reason: Keep Vein Open Last Admin: 03/27/18 11:37 Dose: 2.5 ml Assessment/Plan Comment:: admit because of severity of radiologic picture and clinical picture will cover with cefepime and levaquin
[2018-03-27] MEDS ORDERED: Temazepam 15 MG Cap PO PRN (16:47)
[2018-03-27] MEDS ORDERED: Acetaminophen 325 MG Tab PO PRN (16:47)
[2018-03-27] MEDS ORDERED: Diltiazem 180 MG Cap.CD PO SCH (17:00)
[2018-03-27] MEDS: Metoprolol Tartrate 5 MG/5 ML SDV IV PRN ×2 (19:08→23:31)
[2018-03-27] MEDS: Cefepime 2 GM in Premix Bag 1 BAG IV SCH (19:09)
[2018-03-27] MEDS: Sotalol 80 MG Tab PO SCH (21:17)
[2018-03-27] MEDS: Docusate Sodium 100 MG Cap PO SCH (21:17)
[2018-03-27] MEDS: atorvaSTATin 10 MG Tab PO SCH (21:18)
--- NOTE | 2018-03-27 21:43 | PCM.SN ---
- Free Text/Narrative Note: heart rate still over 120/minute - atrial fibrillation with RVR. will digitalize. Xavi Griffith MD
[2018-03-27] MEDS ORDERED: Diltiazem 120 MG Cap.CD PO STA (21:46)
--- NOTE | 2018-03-27 21:47 | PCM.SN ---
- Free Text/Narrative Note: diltiazem po also ordered
[2018-03-27] MEDS: Digoxin 500 MCG/2 ML Amp IVPUSH SCH (22:10)
[2018-03-28] MEDS: Cefepime 2 GM in Premix Bag 1 BAG IV SCH ×3 (02:50→17:33)
[2018-03-28] MEDS: Digoxin 500 MCG/2 ML Amp IVPUSH SCH (02:54)
[2018-03-28] MEDS ORDERED: Digoxin 250 MCG Tab PO ONE (07:00)
[2018-03-28] MEDS: Multivitamin Tab PO SCH (09:07)
[2018-03-28] MEDS: Aspirin 81 MG Tab.EC PO SCH (09:07)
[2018-03-28] MEDS: Docusate Sodium 100 MG Cap PO SCH ×2 (09:07→23:44)
[2018-03-28] MEDS: Diltiazem 120 MG Cap.CD PO SCH (09:10)
[2018-03-28] MEDS: Sotalol 80 MG Tab PO SCH ×2 (09:11→23:43)
[2018-03-28] MEDS: Hydrochlorothiazide/Triamterene 25-37.5 Tab PO SCH (09:12)
--- NOTE | 2018-03-28 15:57 | PCM.PN ---
- General Info Date of Service: 03/28/18 Subjective Update: He is feeling better. He is eating but complains about the taste of the food. - Patient Data Vitals - Most Recent: Last Vital Signs Temp 97.3 F 03/28/18 12:00 Pulse 85 03/28/18 12:00 Resp 16 03/28/18 12:00 BP 112/79 03/28/18 12:00 Pulse Ox 93 L 03/28/18 12:00 Weight - Most Recent: 91.6 kg I&O - Last 24 Hours: Intake & Output 03/28/18 03/28/18 03/28/18 06:59 14:59 22:59 Intake Total 650 Output Total 500 Balance 150 Lab Results Last 24 Hours: Laboratory Results - last 24 hr 03/28/18 03/28/18 03/28/18 Range/Units 05:37 05:37 05:37 WBC 11.96 H (4.0-11.0) K/uL RBC 3.94 L (4.50-5.90) M/uL Hgb 11.7 L (13.0-17.0) g/dL Hct 35.6 L (38.0-50.0) % MCV 90.4 (80.0-98.0) fL MCH 29.7 (27.0-32.0) pg MCHC 32.9 (31.0-37.0) g/dL RDW Std Deviation 48.0 (28.0-62.0) fl RDW Coeff of [place] 15 (11.0-15.0) % Plt Count 178 (150-400) K/uL MPV 11.00 (7.40-12.00) fL Add Manual Diff YES Neutrophils % (Manual) 60 (48.0-80.0) % Band Neutrophils % 14 % Lymphocytes % (Manual) 15 L (16.0-40.0) % Monocytes % (Manual) 10 (0.0-15.0) % Basophils % (Manual) 1 (0.0-1.5) % Nucleated RBC % 0.0 /100WBC Absolute Seg Neuts 7.2 H (1.4-5.7) Band Neutrophils # 1.7 Lymphocytes # (Manual) 1.8 (0.6-2.4) Monocytes # (Manual) 1.2 H (0.0-0.8) Basophils # (Manual) 0.1 (0.0-0.1) Nucleated RBCs # 0 K/uL INR 2.88 Sodium 137 (136-148) mmol/L Potassium 4.0 (3.5-5.1) mmol/L Chloride 103 (98-107) mmol/L Carbon Dioxide 27.1 (21.0-32.0) mmol/L BUN 24 H (7.0-18.0) mg/dL Creatinine 1.3 (0.8-1.3) mg/dL Est Cr Clr Drug Dosing 40.22 mL/min Estimated GFR (MDRD) 53.0 ml/min Glucose 131 H (74-106) mg/dL Calcium 9.5 (8.5-10.1) mg/dL Magnesium 1.9 (1.8-2.4) mg/dL David Results Last 24 Hours: Microbiology 03/27/18 14:05 Aerobic Blood Culture - Preliminary Blood - Arm, Left NO GROWTH AFTER 1 DAY Anaerobic Blood Culture - Preliminary NO GROWTH AFTER 1 DAY 03/27/18 13:58 Aerobic Blood Culture - Preliminary Blood - Arm, Right NO GROWTH AFTER 1 DAY Anaerobic Blood Culture - Preliminary NO GROWTH AFTER 1 DAY Med Orders - Current: Current Medications Acetaminophen (Tylenol) 325 mg PO Q4H PRN PRN Reason: Pain (Mild 1-3)/fever Aspirin (Halfprin) 81 mg PO DAILY [facility] Last Admin: 03/28/18 09:07 Dose: 81 mg Atorvastatin Calcium (Lipitor) 10 mg PO BEDTIME [facility] Last Admin: 03/27/18 21:18 Dose: 10 mg Digoxin (Lanoxin) 125 mcg PO DAILY [facility] Diltiazem HCl (Cardizem Cd) 240 mg PO DAILY [facility] Last Admin: 03/28/18 09:10 Dose: 240 mg Docusate Sodium (Colace) 100 mg PO BID [facility] Last Admin: 03/28/18 09:07 Dose: 100 mg Cefepime HCl 2 gm/ Premix 50 mls @ 100 mls/hr IV Q8H [facility] Last Admin: 03/28/18 09:02 Dose: 100 mls/hr Levofloxacin/Dextrose 750 mg/ (Premix) 150 mls @ 100 mls/hr IV Q48H [facility] Metoprolol Tartrate (Lopressor) 5 mg IV Q4H PRN PRN Reason: HEART RATE GREATER THAN 100 Last Admin: 03/27/18 23:31 Dose: 5 mg Multivitamins/Minerals/Vitamin C (Tab-A-Kerrie) 1 tab PO DAILY [facility] Last Admin: 03/28/18 09:07 Dose: 1 tab Sodium Chloride (Saline Flush) 10 ml FLUSH ASDIRECTED PRN PRN Reason: Keep Vein Open Last Admin: 03/27/18 11:37 Dose: 10 ml Sodium Chloride (Saline Flush) 2.5 ml FLUSH ASDIRECTED PRN PRN Reason: Keep Vein Open Last Admin: 03/27/18 11:37 Dose: 2.5 ml Sotalol HCl (Betapace) 160 mg PO BID [facility] Last Admin: 03/28/18 09:11 Dose: 160 mg Temazepam (Restoril) 15 mg PO BEDTIME PRN PRN Reason: Sleep Triamterene/HCTZ (Maxzide 25-37.5 Mg) 1 each PO DAILY [facility] Last Admin: 03/28/18 09:12 Dose: 1 each Discontinued Medications Albuterol/Ipratropium (Duoneb 3.0-0.5 Mg/3 Ml) 3 ml NEB ONETIME ONE Stop: 03/27/18 11:27 Last Admin: 03/27/18 11:33 Dose: Not Given Digoxin (Lanoxin) 250 mcg IVPUSH Q6H [facility] Stop: 03/28/18 03:46 Last Admin: 03/28/18 02:54 Dose: Not Given Digoxin (Lanoxin) 250 mcg PO ONETIME ONE Stop: 03/28/18 07:01 Last Admin: 03/28/18 06:54 Dose: 250 mcg Diltiazem HCl (Diltiazem) 20 mg IVPUSH ONETIME ONE Stop: 03/27/18 11:34 Last Admin: 03/27/18 12:27 Dose: 20 mg Diltiazem HCl (Diltiazem) 25 mg IVPUSH ONETIME ONE Stop: 03/27/18 12:53 Last Admin: 03/27/18 13:32 Dose: 25 mg Diltiazem HCl (Cardizem Cd) 180 mg PO DAILY [facility] Last Admin: 03/27/18 18:17 Dose: 180 mg Diltiazem HCl (Cardizem Cd) 240 mg PO NOW STA Stop: 03/27/18 21:47 Last Admin: 03/27/18 22:09 Dose: 240 mg Sodium Chloride (Normal Saline) 500 mls @ 999 mls/hr IV STAT [facility] Last Admin: 03/27/18 11:37 Dose: 999 mls/hr Levofloxacin/Dextrose 750 mg/ (Premix) 150 mls @ 100 mls/hr IV ONETIME ONE Stop: 03/27/18 15:24 Last Admin: 03/27/18 14:46 Dose: 100 mls/hr - Exam General: Alert, Oriented Neck: Supple Lungs: Clear to Auscultation, Normal Respiratory Effort Cardiovascular: Irregular Rhythm, Tachycardia Physical Findings Comments:: monitor atrial fibrillation - Problem List & Annotations (1) Atrial fibrillation with RVR SNOMED Code(s): 558207381194771 Code(s): I48.91 - UNSPECIFIED ATRIAL FIBRILLATION Status: Acute Current Visit: Yes (2) Pneumonia SNOMED Code(s): 223538708 Code(s): J18.9 - PNEUMONIA, UNSPECIFIED ORGANISM Status: Acute Current Visit: Yes (3) Encounter for removal of nasal packing SNOMED Code(s): 494754725 Code(s): Z48.00 - ENCOUNTER FOR CHANGE OR REMOVAL OF NONSURG WOUND DRESSING Status: Acute Current Visit: No (4) Chronic kidney disease SNOMED Code(s): 473749567 Code(s): N18.9 - CHRONIC KIDNEY DISEASE, UNSPECIFIED Status: Acute Current Visit: Yes - Problem List Review Problem List Initiated/Reviewed/Updated: Yes - My Orders Last 24 Hours: My Active Orders 03/27/18 16:47 Vital Signs [RC] Q4H Acetaminophen [Tylenol] 325 mg PO Q4H PRN Temazepam [Restoril] 15 mg PO BEDTIME PRN Resuscitation Status Routine 03/27/18 17:55 Metoprolol Tartrate [Lopressor] 5 mg IV Q4H PRN 03/27/18 18:00 Cefepime [Maxipime in D5W 2 GM/50 ML] 2 gm Premix Bag 1 bag IV Q8H 03/27/18 21:00 Docusate Sodium [Colace] 100 mg PO BID Sotalol [Betapace] 160 mg PO BID atorvaSTATin [Lipitor] 10 mg PO BEDTIME 03/27/18 Dinner Regular Diet [DIET] 03/28/18 09:00 Aspirin [Halfprin] 81 mg PO DAILY Diltiazem [Cardizem CD] 240 mg PO DAILY HCTZ/Triamterene [Maxzide 25-37.5 MG] 1 each PO DAILY Multivitamins [Tab-A-Kerrie] 1 tab PO DAILY 03/29/18 05:00 DIGOXIN [CHEM] Routine 03/29/18 05:11 BASIC METABOLIC PANEL,BMP [CHEM] AM CBC WITH AUTO DIFF [HEME] AM INR,PT,PROTHROMBIN TIME [COAG] AM MAGNESIUM [CHEM] AM 03/29/18 09:00 Digoxin [Lanoxin] 125 mcg PO DAILY 03/29/18 14:00 Levofloxacin/Dextrose 5%-Water [Levaquin in D5W 750 MG/150 ML] 750 mg Premix Bag 1 bag IV Q48H 03/30/18 05:11 BASIC METABOLIC PANEL,BMP [CHEM] AM CBC WITH AUTO DIFF [HEME] AM INR,PT,PROTHROMBIN TIME [COAG] AM MAGNESIUM [CHEM] AM - Plan Plan:: admit because of severity of radiologic picture and clinical picture will cover with cefepime and levaquin MD Mimi 03/28/2018 He is improved anticipated discharge not until Saturday I have not yet restarted warfarin as he is on levaquin and in light of recent nose bleed. He remains with a therapeutic INR INR is ordered daily. Xavi Griffith MD
[2018-03-28] MEDS: atorvaSTATin 10 MG Tab PO SCH (23:44)
[2018-03-29] MEDS: Cefepime 2 GM in Premix Bag 1 BAG IV SCH ×3 (02:22→17:12)
[2018-03-29] MEDS: Metoprolol Tartrate 5 MG/5 ML SDV IV PRN ×2 (05:38→18:36)
--- NOTE | 2018-03-29 07:25 | PCM.PN ---
- General Info Date of Service: 03/29/18 Admission Dx/Problem (Free Text): Admission Diagnosis/Problem Admission Diagnosis/Problem Pneumonia Subjective Update: He is feeling better. He is eating but complains about the taste of the food. Functional Status: Reports: Pain Controlled - Review of Systems General: Reports: No Symptoms HEENT: Reports: No Symptoms Pulmonary: Reports: Shortness of Breath, Cough, Sputum. Denies: Hemoptysis Cardiovascular: Reports: No Symptoms Gastrointestinal: Reports: Constipation Genitourinary: Reports: No Symptoms Musculoskeletal: Reports: No Symptoms Skin: Reports: No Symptoms Neurological: Reports: No Symptoms Psychiatric: Reports: No Symptoms - Patient Data Vitals - Most Recent: Last Vital Signs Temp 36.6 C 03/29/18 04:00 Pulse 117 H 03/29/18 05:38 Resp 17 03/29/18 04:00 BP 102/75 03/29/18 05:38 Pulse Ox 92 L 03/29/18 04:00 Weight - Most Recent: 91.6 kg I&O - Last 24 Hours: Intake & Output 03/28/18 03/29/18 03/29/18 22:59 06:59 14:59 Intake Total 600 240 Output Total 920 1000 Balance -320 -760 Lab Results Last 24 Hours: Laboratory Results - last 24 hr 03/29/18 03/29/18 03/29/18 Range/Units 05:11 05:11 05:11 WBC 11.52 H (4.0-11.0) K/uL RBC 4.09 L (4.50-5.90) M/uL Hgb 12.3 L (13.0-17.0) g/dL Hct 36.9 L (38.0-50.0) % MCV 90.2 (80.0-98.0) fL MCH 30.1 (27.0-32.0) pg MCHC 33.3 (31.0-37.0) g/dL RDW Std Deviation 47.7 (28.0-62.0) fl RDW Coeff of Heydi 15 (11.0-15.0) % Plt Count 178 (150-400) K/uL MPV 11.40 (7.40-12.00) fL Add Manual Diff YES Neutrophils % (Manual) 70 (48.0-80.0) % Band Neutrophils % 5 % Lymphocytes % (Manual) 13 L (16.0-40.0) % Monocytes % (Manual) 12 (0.0-15.0) % Nucleated RBC % 0.0 /100WBC Absolute Seg Neuts 8.1 H (1.4-5.7) Band Neutrophils # 0.6 Lymphocytes # (Manual) 1.5 (0.6-2.4) Monocytes # (Manual) 1.4 H (0.0-0.8) Nucleated RBCs # 0 K/uL INR 2.49 Sodium 136 (136-148) mmol/L Potassium 3.8 (3.5-5.1) mmol/L Chloride 101 (98-107) mmol/L Carbon Dioxide 25.7 (21.0-32.0) mmol/L BUN 21 H (7.0-18.0) mg/dL Creatinine 1.3 (0.8-1.3) mg/dL Est Cr Clr Drug Dosing 40.22 mL/min Estimated GFR (MDRD) 53.0 ml/min Glucose 119 H (74-106) mg/dL Calcium 9.9 (8.5-10.1) mg/dL Magnesium 1.9 (1.8-2.4) mg/dL Digoxin (0.9-2.0) ng/mL 03/29/18 Range/Units 05:11 WBC (4.0-11.0) K/uL RBC (4.50-5.90) M/uL Hgb (13.0-17.0) g/dL Hct (38.0-50.0) % MCV (80.0-98.0) fL MCH (27.0-32.0) pg MCHC (31.0-37.0) g/dL RDW Std Deviation (28.0-62.0) fl RDW Coeff of Heydi (11.0-15.0) % Plt Count (150-400) K/uL MPV (7.40-12.00) fL Add Manual Diff Neutrophils % (Manual) (48.0-80.0) % Band Neutrophils % % Lymphocytes % (Manual) (16.0-40.0) % Monocytes % (Manual) (0.0-15.0) % Nucleated RBC % /100WBC Absolute Seg Neuts (1.4-5.7) Band Neutrophils # Lymphocytes # (Manual) (0.6-2.4) Monocytes # (Manual) (0.0-0.8) Nucleated RBCs # K/uL INR Sodium (136-148) mmol/L Potassium (3.5-5.1) mmol/L Chloride (98-107) mmol/L Carbon Dioxide (21.0-32.0) mmol/L BUN (7.0-18.0) mg/dL Creatinine (0.8-1.3) mg/dL Est Cr Clr Drug Dosing mL/min Estimated GFR (MDRD) ml/min Glucose (74-106) mg/dL Calcium (8.5-10.1) mg/dL Magnesium (1.8-2.4) mg/dL Digoxin 0.6 L (0.9-2.0) ng/mL David Results Last 24 Hours: Microbiology 03/27/18 14:05 Aerobic Blood Culture - Preliminary Blood - Arm, Left NO GROWTH AFTER 1 DAY Anaerobic Blood Culture - Preliminary NO GROWTH AFTER 1 DAY 03/27/18 13:58 Aerobic Blood Culture - Preliminary Blood - Arm, Right NO GROWTH AFTER 1 DAY Anaerobic Blood Culture - Preliminary NO GROWTH AFTER 1 DAY Med Orders - Current: Current Medications Acetaminophen (Tylenol) 325 mg PO Q4H PRN PRN Reason: Pain (Mild 1-3)/fever Aspirin (Halfprin) 81 mg PO DAILY [facility] Last Admin: 03/28/18 09:07 Dose: 81 mg Atorvastatin Calcium (Lipitor) 10 mg PO BEDTIME [facility] Last Admin: 03/28/18 23:44 Dose: 10 mg Digoxin (Lanoxin) 125 mcg PO DAILY [facility] Diltiazem HCl (Cardizem Cd) 240 mg PO DAILY [facility] Last Admin: 03/28/18 09:10 Dose: 240 mg Docusate Sodium (Colace) 100 mg PO BID [facility] Last Admin: 03/28/18 23:44 Dose: 100 mg Cefepime HCl 2 gm/ Premix 50 mls @ 100 mls/hr IV Q8H [facility] Last Admin: 03/29/18 02:22 Dose: 100 mls/hr Levofloxacin/Dextrose 750 mg/ (Premix) 150 mls @ 100 mls/hr IV Q48H [facility] Metoprolol Tartrate (Lopressor) 5 mg IV Q4H PRN PRN Reason: HEART RATE GREATER THAN 100 Last Admin: 03/29/18 05:38 Dose: 5 mg Multivitamins/Minerals/Vitamin C (Tab-A-Kerrie) 1 tab PO DAILY [facility] Last Admin: 03/28/18 09:07 Dose: 1 tab Sodium Chloride (Saline Flush) 10 ml FLUSH ASDIRECTED PRN PRN Reason: Keep Vein Open Last Admin: 03/27/18 11:37 Dose: 10 ml Sodium Chloride (Saline Flush) 2.5 ml FLUSH ASDIRECTED PRN PRN Reason: Keep Vein Open Last Admin: 03/27/18 11:37 Dose: 2.5 ml Sotalol HCl (Betapace) 160 mg PO BID [facility] Last Admin: 03/28/18 23:43 Dose: 160 mg Temazepam (Restoril) 15 mg PO BEDTIME PRN PRN Reason: Sleep Triamterene/HCTZ (Maxzide 25-37.5 Mg) 1 each PO DAILY [facility] Last Admin: 03/28/18 09:12 Dose: 1 each Discontinued Medications Albuterol/Ipratropium (Duoneb 3.0-0.5 Mg/3 Ml) 3 ml NEB ONETIME ONE Stop: 03/27/18 11:27 Last Admin: 03/27/18 11:33 Dose: Not Given Digoxin (Lanoxin) 250 mcg IVPUSH Q6H [facility] Stop: 03/28/18 03:46 Last Admin: 03/28/18 02:54 Dose: Not Given Digoxin (Lanoxin) 250 mcg PO ONETIME ONE Stop: 03/28/18 07:01 Last Admin: 03/28/18 06:54 Dose: 250 mcg Diltiazem HCl (Diltiazem) 20 mg IVPUSH ONETIME ONE Stop: 03/27/18 11:34 Last Admin: 03/27/18 12:27 Dose: 20 mg Diltiazem HCl (Diltiazem) 25 mg IVPUSH ONETIME ONE Stop: 03/27/18 12:53 Last Admin: 03/27/18 13:32 Dose: 25 mg Diltiazem HCl (Cardizem Cd) 180 mg PO DAILY [facility] Last Admin: 03/27/18 18:17 Dose: 180 mg Diltiazem HCl (Cardizem Cd) 240 mg PO NOW STA Stop: 03/27/18 21:47 Last Admin: 03/27/18 22:09 Dose: 240 mg Sodium Chloride (Normal Saline) 500 mls @ 999 mls/hr IV STAT [facility] Last Admin: 03/27/18 11:37 Dose: 999 mls/hr Levofloxacin/Dextrose 750 mg/ (Premix) 150 mls @ 100 mls/hr IV ONETIME ONE Stop: 03/27/18 15:24 Last Admin: 03/27/18 14:46 Dose: 100 mls/hr - Exam General: Alert, Oriented, Cooperative, No Acute Distress HEENT: Pupils Equal, Pupils Reactive, EOMI, Mucous Membr. Moist/[place] Neck: Supple, Trachea Midline, No Thyromegaly Lungs: Rales (Bibasilar predominantly right). No: Clear to Auscultation Cardiovascular: Tachycardia. No: Regular Rate, Regular Rhythm GI/Abdominal Exam: Normal Bowel Sounds, Soft, Non-Tender (Male) Exam: Deferred Back Exam: Normal Inspection, Full Range of Motion Extremities: Normal Inspection, Normal Range of Motion, No Pedal Edema Skin: Warm, Dry, Intact Neurological: No New Focal Deficit, Normal Gait, Normal Speech Psy/Mental Status: Alert, Normal Affect, Normal Mood - Problem List & Annotations (1) Pneumonia SNOMED Code(s): 177340568 Code(s): J18.9 - PNEUMONIA, UNSPECIFIED ORGANISM Status: Acute Priority: High Current Visit: Yes Qualifiers: Pneumonia type: due to unspecified organism Laterality: bilateral Lung location: lower lobe of lung Qualified Code(s): J18.1 - Lobar pneumonia, unspecified organism (2) Atrial fibrillation with RVR SNOMED Code(s): 472259019980582 Code(s): I48.91 - UNSPECIFIED ATRIAL FIBRILLATION Status: Chronic Priority: Medium Current Visit: Yes (3) Chronic kidney disease SNOMED Code(s): 703088446 Code(s): N18.9 - CHRONIC KIDNEY DISEASE, UNSPECIFIED Status: Acute Current Visit: Yes Qualifiers: Chronic kidney disease stage: stage 3 (moderate) Qualified Code(s): N18.3 - Chronic kidney disease, stage 3 (moderate) - Problem List Review Problem List Initiated/Reviewed/Updated: Yes - Plan Plan:: The patient is an 83-year-old gentleman who was doing much better today. The patient says that he feels like he is less short of breath today. His IV antibiotics as currently selected will be continued. I do not think that the patient was appropriate for discharge home at this point. The patient has been encouraged to ambulate. Also been noted that the patient's A. fib with RVR has been improving somewhat and he'll be continued on his current dose of Cardizem, beta taylor and digoxin. The patient also had a digoxin level which was low and this will also continue to be monitored. I believe this patient's rapid ventricular response rate is the result of his pneumonia and he will be kept on oxygen support as needed to keep his saturations around 92%. The patient also has been encouraged to continue to ambulate. Repeat laboratory testing to have been ordered for the morning. I also ordered a repeat chest x-ray for the morning.
[2018-03-29] MEDS: Digoxin 125 MCG Tab PO SCH (08:17)
[2018-03-29] MEDS: Hydrochlorothiazide/Triamterene 25-37.5 Tab PO SCH (08:17)
[2018-03-29] MEDS: Aspirin 81 MG Tab.EC PO SCH (08:18)
[2018-03-29] MEDS: Multivitamin Tab PO SCH (08:18)
[2018-03-29] MEDS: Sotalol 80 MG Tab PO SCH ×2 (08:18→21:27)
[2018-03-29] MEDS: Docusate Sodium 100 MG Cap PO SCH ×2 (08:18→21:27)
[2018-03-29] MEDS: Diltiazem 120 MG Cap.CD PO SCH (08:19)
[2018-03-29] MEDS ORDERED: Polyethylene Glycol 3350 Powder 17 GM Packet PO PRN (09:01)
[2018-03-29] MEDS: Levofloxacin/Dextrose 5%-Water 750 MG in Premix Bag 1 BAG IV SCH (15:26)
[2018-03-29] MEDS: atorvaSTATin 10 MG Tab PO SCH (21:27)
[2018-03-30] MEDS: Cefepime 2 GM in Premix Bag 1 BAG IV SCH ×3 (02:24→17:48)
[2018-03-30] MEDS: Multivitamin Tab PO SCH (08:51)
[2018-03-30] MEDS: Digoxin 125 MCG Tab PO SCH (08:51)
[2018-03-30] MEDS: Sotalol 80 MG Tab PO SCH ×2 (08:53→20:45)
[2018-03-30] MEDS: Docusate Sodium 100 MG Cap PO SCH ×2 (08:53→20:45)
[2018-03-30] MEDS: Aspirin 81 MG Tab.EC PO SCH (08:53)
[2018-03-30] MEDS: Diltiazem 120 MG Cap.CD PO SCH (09:03)
[2018-03-30] MEDS: Hydrochlorothiazide/Triamterene 25-37.5 Tab PO SCH (09:07)
--- NOTE | 2018-03-30 09:42 | PCM.PN ---
- General Info Date of Service: 03/30/18 Admission Dx/Problem (Free Text): The patient is an 83-year-old gentleman who had been admitted secondary to right -sided pneumonia. The patient says today that he has been having some "fullness " and some chest pain. He also says that he has been somewhat short of breath. He denied any fever or chills. The patient also has been complaining of fatigue and weakness as well. The patient has been eating but not as much as usual. The patient has no other complaints at the present time. Subjective Update: The patient says that he is worse today. Functional Status: Reports: Pain Controlled, Tolerating Diet - Review of Systems General: Reports: Weakness, Fatigue HEENT: Reports: No Symptoms Pulmonary: Reports: Shortness of Breath, Cough Cardiovascular: Reports: Chest Pain Gastrointestinal: Reports: No Symptoms Genitourinary: Reports: No Symptoms Musculoskeletal: Reports: No Symptoms Skin: Reports: No Symptoms Neurological: Reports: No Symptoms Psychiatric: Reports: No Symptoms - Patient Data Vitals - Most Recent: Last Vital Signs Temp 36.8 C 03/30/18 08:00 Pulse 112 H 03/30/18 09:03 Resp 20 03/30/18 04:00 BP 108/68 03/30/18 09:03 Pulse Ox 96 03/30/18 04:00 Weight - Most Recent: 91.6 kg I&O - Last 24 Hours: Intake & Output 03/29/18 03/30/18 03/30/18 22:59 06:59 14:59 Intake Total 350 680 Output Total 900 950 Balance -550 -270 Lab Results Last 24 Hours: Laboratory Results - last 24 hr 03/30/18 03/30/18 03/30/18 Range/Units 06:15 06:15 06:15 WBC 10.98 (4.0-11.0) K/uL RBC 4.27 L (4.50-5.90) M/uL Hgb 12.4 L (13.0-17.0) g/dL Hct 38.4 (38.0-50.0) % MCV 89.9 (80.0-98.0) fL MCH 29.0 (27.0-32.0) pg MCHC 32.3 (31.0-37.0) g/dL RDW Std Deviation 47.9 (28.0-62.0) fl RDW Coeff of Heydi 15 (11.0-15.0) % Plt Count 201 (150-400) K/uL MPV 11.40 (7.40-12.00) fL Add Manual Diff YES Neutrophils % (Manual) 71 (48.0-80.0) % Band Neutrophils % 5 % Lymphocytes % (Manual) 11 L (16.0-40.0) % Monocytes % (Manual) 11 (0.0-15.0) % Basophils % (Manual) 2 H (0.0-1.5) % Nucleated RBC % 0.0 /100WBC Absolute Seg Neuts 7.8 H (1.4-5.7) Band Neutrophils # 0.5 Lymphocytes # (Manual) 1.2 (0.6-2.4) Monocytes # (Manual) 1.2 H (0.0-0.8) Basophils # (Manual) 0.2 H (0.0-0.1) Nucleated RBCs # 0 K/uL INR 2.24 Sodium 136 (136-148) mmol/L Potassium 4.1 (3.5-5.1) mmol/L Chloride 101 (98-107) mmol/L Carbon Dioxide 27.1 (21.0-32.0) mmol/L BUN 22 H (7.0-18.0) mg/dL Creatinine 1.3 (0.8-1.3) mg/dL Est Cr Clr Drug Dosing 40.22 mL/min Estimated GFR (MDRD) 53.0 ml/min Glucose 125 H (74-106) mg/dL Calcium 10.5 H (8.5-10.1) mg/dL Magnesium 1.9 (1.8-2.4) mg/dL David Results Last 24 Hours: Microbiology 03/27/18 14:05 Aerobic Blood Culture - Preliminary Blood - Arm, Left NO GROWTH AFTER 2 DAYS Anaerobic Blood Culture - Preliminary NO GROWTH AFTER 2 DAYS 03/27/18 13:58 Aerobic Blood Culture - Preliminary Blood - Arm, Right NO GROWTH AFTER 2 DAYS Anaerobic Blood Culture - Preliminary NO GROWTH AFTER 2 DAYS 03/27/18 11:21 Urine Culture - Final Urine, Clean Catch MIXED LATONYA 1,000-10,000 CFU/ML Med Orders - Current: Current Medications Acetaminophen (Tylenol) 325 mg PO Q4H PRN PRN Reason: Pain (Mild 1-3)/fever Aspirin (Halfprin) 81 mg PO DAILY [facility] Last Admin: 03/30/18 08:53 Dose: 81 mg Atorvastatin Calcium (Lipitor) 10 mg PO BEDTIME [facility] Last Admin: 03/29/18 21:27 Dose: 10 mg Digoxin (Lanoxin) 125 mcg PO DAILY [facility] Last Admin: 03/30/18 08:51 Dose: 125 mcg Diltiazem HCl (Cardizem Cd) 240 mg PO DAILY [facility] Last Admin: 03/30/18 09:03 Dose: 240 mg Docusate Sodium (Colace) 100 mg PO BID [facility] Last Admin: 03/30/18 08:53 Dose: 100 mg Cefepime HCl 2 gm/ Premix 50 mls @ 100 mls/hr IV Q8H [facility] Last Admin: 03/30/18 02:24 Dose: 100 mls/hr Levofloxacin/Dextrose 750 mg/ (Premix) 150 mls @ 100 mls/hr IV Q48H [facility] Last Admin: 03/29/18 15:26 Dose: 100 mls/hr Metoprolol Tartrate (Lopressor) 5 mg IV Q4H PRN PRN Reason: HEART RATE GREATER THAN 100 Last Admin: 03/29/18 18:36 Dose: 5 mg Multivitamins/Minerals/Vitamin C (Tab-A-Kerrie) 1 tab PO DAILY [facility] Last Admin: 03/30/18 08:51 Dose: 1 tab Polyethylene Glycol (Miralax) 17 gm PO TID PRN PRN Reason: Constipation Sodium Chloride (Saline Flush) 10 ml FLUSH ASDIRECTED PRN PRN Reason: Keep Vein Open Last Admin: 03/27/18 11:37 Dose: 10 ml Sodium Chloride (Saline Flush) 2.5 ml FLUSH ASDIRECTED PRN PRN Reason: Keep Vein Open Last Admin: 03/27/18 11:37 Dose: 2.5 ml Sotalol HCl (Betapace) 160 mg PO BID [facility] Last Admin: 03/30/18 08:53 Dose: 160 mg Temazepam (Restoril) 15 mg PO BEDTIME PRN PRN Reason: Sleep Triamterene/HCTZ (Maxzide 25-37.5 Mg) 1 each PO DAILY [facility] Last Admin: 03/30/18 09:07 Dose: 1 each Discontinued Medications Albuterol/Ipratropium (Duoneb 3.0-0.5 Mg/3 Ml) 3 ml NEB ONETIME ONE Stop: 03/27/18 11:27 Last Admin: 03/27/18 11:33 Dose: Not Given Digoxin (Lanoxin) 250 mcg IVPUSH Q6H [facility] Stop: 03/28/18 03:46 Last Admin: 03/28/18 02:54 Dose: Not Given Digoxin (Lanoxin) 250 mcg PO ONETIME ONE Stop: 03/28/18 07:01 Last Admin: 03/28/18 06:54 Dose: 250 mcg Diltiazem HCl (Diltiazem) 20 mg IVPUSH ONETIME ONE Stop: 03/27/18 11:34 Last Admin: 03/27/18 12:27 Dose: 20 mg Diltiazem HCl (Diltiazem) 25 mg IVPUSH ONETIME ONE Stop: 03/27/18 12:53 Last Admin: 03/27/18 13:32 Dose: 25 mg Diltiazem HCl (Cardizem Cd) 180 mg PO DAILY [facility] Last Admin: 03/27/18 18:17 Dose: 180 mg Diltiazem HCl (Cardizem Cd) 240 mg PO NOW [facility] Stop: 03/27/18 21:47 Last Admin: 03/27/18 22:09 Dose: 240 mg Sodium Chloride (Normal Saline) 500 mls @ 999 mls/hr IV STAT [facility] Last Admin: 03/27/18 11:37 Dose: 999 mls/hr Levofloxacin/Dextrose 750 mg/ (Premix) 150 mls @ 100 mls/hr IV ONETIME ONE Stop: 03/27/18 15:24 Last Admin: 03/27/18 14:46 Dose: 100 mls/hr - Exam Quality Assessment: No: Supplemental Oxygen, Urine Catheter General: Alert, Oriented, Cooperative, No Acute Distress HEENT: Pupils Equal, Pupils Reactive, EOMI. No: Scleral Icterus Neck: Supple, Trachea Midline. No: Lymphadenopathy, Thyromegaly Lungs: Clear to Auscultation, Normal Respiratory Effort Cardiovascular: Irregular Rhythm. No: Regular Rate GI/Abdominal Exam: Normal Bowel Sounds, Soft, Non-Tender, No Distention (Male) Exam: Deferred Back Exam: Normal Inspection Extremities: Normal Inspection, No Pedal Edema Skin: Warm, Dry, Intact Neurological: No New Focal Deficit Psy/Mental Status: Alert, Normal Affect, Normal Mood - Problem List & Annotations (1) Pneumonia SNOMED Code(s): 870360933 Code(s): J18.9 - PNEUMONIA, UNSPECIFIED ORGANISM Status: Acute Priority: High Current Visit: Yes Qualifiers: Pneumonia type: due to unspecified organism Laterality: bilateral Lung location: lower lobe of lung Qualified Code(s): J18.1 - Lobar pneumonia, unspecified organism (2) Atrial fibrillation with RVR SNOMED Code(s): 682423824604505 Code(s): I48.91 - UNSPECIFIED ATRIAL FIBRILLATION Status: Chronic Priority: Medium Current Visit: Yes (3) Chronic kidney disease SNOMED Code(s): 004437583 Code(s): N18.9 - CHRONIC KIDNEY DISEASE, UNSPECIFIED Status: Acute Current Visit: Yes Qualifiers: Chronic kidney disease stage: stage 3 (moderate) Qualified Code(s): N18.3 - Chronic kidney disease, stage 3 (moderate) - Problem List Review Problem List Initiated/Reviewed/Updated: Yes - My Orders Last 24 Hours: My Active Orders 03/29/18 09:01 Polyethylene Glycol 3350 [MiraLAX] 17 gm PO TID PRN 03/30/18 05:11 Chest 1V Frontal [CR] AM - Plan Plan:: The patient is an 83-year-old gentleman who has had somewhat of a setback. Patient says that he is still short of breath and has some chest pain. The patient's x-ray was reviewed by me which shows consolidations predominantly of his right lower lobe and some haziness associated with a left lower lobe. We will await radiology over read. For now the patient will be continued on his current IV antibiotics. The patient is not appropriate for discharge home. He may require long-term placement as he is somewhat weak and physically deconditioned. The patient's atrial fibrillation is otherwise chronic and stable however, I suspect that the patient's episodes of tachycardia are secondary to his inability to oxygenate thoroughly and this should improve once his pneumonia has resolved. Physical therapy has been ordered. I've also ordered the laboratory studies for the morning. The patient has been encouraged to ambulate with assistance.
[2018-03-30] MEDS: atorvaSTATin 10 MG Tab PO SCH (20:44)
[2018-03-31] MEDS: Cefepime 2 GM in Premix Bag 1 BAG IV SCH ×3 (02:50→18:55)
[2018-03-31] MEDS: Sotalol 80 MG Tab PO SCH ×2 (08:33→21:55)
[2018-03-31] MEDS: Hydrochlorothiazide/Triamterene 25-37.5 Tab PO SCH (08:34)
[2018-03-31] MEDS: Diltiazem 120 MG Cap.CD PO SCH (08:34)
[2018-03-31] MEDS: Digoxin 125 MCG Tab PO SCH (08:34)
[2018-03-31] MEDS: Aspirin 81 MG Tab.EC PO SCH (08:34)
[2018-03-31] MEDS: Docusate Sodium 100 MG Cap PO SCH ×2 (08:34→21:14)
[2018-03-31] MEDS: Multivitamin Tab PO SCH (08:34)
--- NOTE | 2018-03-31 09:51 | PCM.PN ---
<Mahesh Stern - Last Filed: 03/31/18 09:44> - General Info Date of Service: 03/31/18 Subjective Update: Facundo Sanford is an 83 y/o male admitted for community acquired pneumonia and Afib with RVR. Currently on IV antibiotics and rate controlled. This morning the patient endorses a productive cough and mild dyspnea. No chest pain, abdominal pain. - Review of Systems General: Reports: No Symptoms HEENT: Reports: No Symptoms Pulmonary: Reports: Cough, Sputum Cardiovascular: Reports: Dyspnea on Exertion Gastrointestinal: Reports: No Symptoms Genitourinary: Reports: No Symptoms Musculoskeletal: Reports: No Symptoms Skin: Reports: No Symptoms Neurological: Reports: No Symptoms Psychiatric: Reports: No Symptoms - Patient Data Vitals - Most Recent: Last Vital Signs Temp 37.2 C 03/31/18 07:24 Pulse 112 H 03/31/18 08:34 Resp 18 03/31/18 07:24 BP 102/70 03/31/18 08:34 Pulse Ox 92 L 03/31/18 07:24 Weight - Most Recent: 91.6 kg I&O - Last 24 Hours: Intake & Output 03/30/18 03/31/18 03/31/18 22:59 06:59 14:59 Intake Total 295 500 Output Total 1150 Balance 295 -650 David Results Last 24 Hours: Microbiology 03/27/18 14:05 Aerobic Blood Culture - Preliminary Blood - Arm, Left NO GROWTH AFTER 3 DAYS Anaerobic Blood Culture - Preliminary NO GROWTH AFTER 3 DAYS 03/27/18 13:58 Aerobic Blood Culture - Preliminary Blood - Arm, Right NO GROWTH AFTER 3 DAYS Anaerobic Blood Culture - Preliminary NO GROWTH AFTER 3 DAYS Med Orders - Current: Current Medications Acetaminophen (Tylenol) 325 mg PO Q4H PRN PRN Reason: Pain (Mild 1-3)/fever Aspirin (Halfprin) 81 mg PO DAILY [facility] Last Admin: 03/31/18 08:34 Dose: 81 mg Atorvastatin Calcium (Lipitor) 10 mg PO BEDTIME [facility] Last Admin: 03/30/18 20:44 Dose: 10 mg Digoxin (Lanoxin) 125 mcg PO DAILY [facility] Last Admin: 03/31/18 08:34 Dose: 125 mcg Diltiazem HCl (Cardizem Cd) 240 mg PO DAILY [facility] Last Admin: 03/31/18 08:34 Dose: 240 mg Docusate Sodium (Colace) 100 mg PO BID [facility] Last Admin: 03/31/18 08:34 Dose: 100 mg Cefepime HCl 2 gm/ Premix 50 mls @ 100 mls/hr IV Q8H [facility] Last Admin: 03/31/18 02:50 Dose: 100 mls/hr Levofloxacin/Dextrose 750 mg/ (Premix) 150 mls @ 100 mls/hr IV Q48H [facility] Last Admin: 03/29/18 15:26 Dose: 100 mls/hr Metoprolol Tartrate (Lopressor) 5 mg IV Q4H PRN PRN Reason: HEART RATE GREATER THAN 100 Last Admin: 03/29/18 18:36 Dose: 5 mg Multivitamins/Minerals/Vitamin C (Tab-A-Kerrie) 1 tab PO DAILY [facility] Last Admin: 03/31/18 08:34 Dose: 1 tab Polyethylene Glycol (Miralax) 17 gm PO TID PRN PRN Reason: Constipation Sodium Chloride (Saline Flush) 10 ml FLUSH ASDIRECTED PRN PRN Reason: Keep Vein Open Last Admin: 03/27/18 11:37 Dose: 10 ml Sodium Chloride (Saline Flush) 2.5 ml FLUSH ASDIRECTED PRN PRN Reason: Keep Vein Open Last Admin: 03/27/18 11:37 Dose: 2.5 ml Sotalol HCl (Betapace) 160 mg PO BID [facility] Last Admin: 03/31/18 08:33 Dose: 160 mg Temazepam (Restoril) 15 mg PO BEDTIME PRN PRN Reason: Sleep Triamterene/HCTZ (Maxzide 25-37.5 Mg) 1 each PO DAILY [facility] Last Admin: 03/31/18 08:34 Dose: 1 each Discontinued Medications Albuterol/Ipratropium (Duoneb 3.0-0.5 Mg/3 Ml) 3 ml NEB ONETIME ONE Stop: 03/27/18 11:27 Last Admin: 03/27/18 11:33 Dose: Not Given Digoxin (Lanoxin) 250 mcg IVPUSH Q6H [facility] Stop: 03/28/18 03:46 Last Admin: 03/28/18 02:54 Dose: Not Given Digoxin (Lanoxin) 250 mcg PO ONETIME ONE Stop: 03/28/18 07:01 Last Admin: 03/28/18 06:54 Dose: 250 mcg Diltiazem HCl (Diltiazem) 20 mg IVPUSH ONETIME ONE Stop: 03/27/18 11:34 Last Admin: 03/27/18 12:27 Dose: 20 mg Diltiazem HCl (Diltiazem) 25 mg IVPUSH ONETIME ONE Stop: 03/27/18 12:53 Last Admin: 03/27/18 13:32 Dose: 25 mg Diltiazem HCl (Cardizem Cd) 180 mg PO DAILY [facility] Last Admin: 03/27/18 18:17 Dose: 180 mg Diltiazem HCl (Cardizem Cd) 240 mg PO NOW STA Stop: 03/27/18 21:47 Last Admin: 03/27/18 22:09 Dose: 240 mg Sodium Chloride (Normal Saline) 500 mls @ 999 mls/hr IV STAT [facility] Last Admin: 03/27/18 11:37 Dose: 999 mls/hr Levofloxacin/Dextrose 750 mg/ (Premix) 150 mls @ 100 mls/hr IV ONETIME ONE Stop: 03/27/18 15:24 Last Admin: 03/27/18 14:46 Dose: 100 mls/hr Influenza Virus Vaccine (Pharmacy To Dose - Influenza Vaccine) 1 each IM ONETIME ONE Stop: 03/31/18 08:46 - Exam General: Alert, Oriented, Cooperative, No Acute Distress HEENT: Mucous Membr. Moist/[place] Lungs: Normal Respiratory Effort, Decreased Breath Sounds (bilateral lower lung mcclellan.) Cardiovascular: Regular Rate, Regular Rhythm GI/Abdominal Exam: Normal Bowel Sounds, Soft, Non-Tender, No Organomegaly, No Distention, No Abnormal Bruit, No Mass, Pelvis Stable Extremities: Normal Inspection, Normal Range of Motion, Non-Tender, No Pedal Edema, Normal Capillary Refill Skin: Warm, Dry, Intact Neurological: No New Focal Deficit Psy/Mental Status: Alert, Normal Affect - Problem List Review Problem List Initiated/Reviewed/Updated: Yes - My Orders Last 24 Hours: My Active Orders 03/31/18 09:42 Modified Barium Swallow Study [Swallowing Function w Video] [CR] Routine - Plan Plan:: 1. Community acquired pneumonia. Will continue with current IV antibiotics which include levaquin and cefepime. 2. Afib, rate controlled. Holding warfarin since INR therapeutic and recent nose bleed. Continue with aspirin 81 mg PO daily. Continue with Digoxin 125 mcg Po daily, diltiazem, sotalol. 3. Acute on chronic kidney disease, improving. Will encourage intake of fluids. 4. Hypertension, stable. Continue with Triamteren/Hctz daily. Disposition: pending PT/OT justen. <Lucian Simpsno - Last Filed: 03/31/18 15:57> - Patient Data Vitals - Most Recent: Last Vital Signs Temp 36.6 C 03/31/18 12:00 Pulse 114 H 03/31/18 12:00 Resp 24 H 03/31/18 12:00 BP 107/73 03/31/18 12:00 Pulse Ox 90 L 03/31/18 12:00 I&O - Last 24 Hours: Intake & Output 03/31/18 03/31/18 03/31/18 06:59 14:59 22:59 Intake Total 500 50 Output Total 1150 Balance -650 50 David Results Last 24 Hours: Microbiology 03/27/18 14:05 Aerobic Blood Culture - Preliminary Blood - Arm, Left NO GROWTH AFTER 4 DAYS Anaerobic Blood Culture - Preliminary NO GROWTH AFTER 4 DAYS 03/27/18 13:58 Aerobic Blood Culture - Preliminary Blood - Arm, Right NO GROWTH AFTER 4 DAYS Anaerobic Blood Culture - Preliminary NO GROWTH AFTER 4 DAYS Med Orders - Current: Current Medications Acetaminophen (Tylenol) 325 mg PO Q4H PRN PRN Reason: Pain (Mild 1-3)/fever Aspirin (Halfprin) 81 mg PO DAILY [facility] Last Admin: 03/31/18 08:34 Dose: 81 mg Atorvastatin Calcium (Lipitor) 10 mg PO BEDTIME [facility] Last Admin: 03/30/18 20:44 Dose: 10 mg Digoxin (Lanoxin) 125 mcg PO DAILY [facility] Last Admin: 03/31/18 08:34 Dose: 125 mcg Diltiazem HCl (Cardizem Cd) 240 mg PO DAILY [facility] Last Admin: 03/31/18 08:34 Dose: 240 mg Docusate Sodium (Colace) 100 mg PO BID [facility] Last Admin: 03/31/18 08:34 Dose: 100 mg Cefepime HCl 2 gm/ Premix 50 mls @ 100 mls/hr IV Q8H [facility] Last Admin: 03/31/18 10:08 Dose: 100 mls/hr Levofloxacin/Dextrose 750 mg/ (Premix) 150 mls @ 100 mls/hr IV Q48H [facility] Last Admin: 03/31/18 15:28 Dose: 100 mls/hr Metoprolol Tartrate (Lopressor) 5 mg IV Q4H PRN PRN Reason: HEART RATE GREATER THAN 100 Last Admin: 03/29/18 18:36 Dose: 5 mg Multivitamins/Minerals/Vitamin C (Tab-A-Kerrie) 1 tab PO DAILY [facility] Last Admin: 03/31/18 08:34 Dose: 1 tab Polyethylene Glycol (Miralax) 17 gm PO TID PRN PRN Reason: Constipation Sodium Chloride (Saline Flush) 10 ml FLUSH ASDIRECTED PRN PRN Reason: Keep Vein Open Last Admin: 03/27/18 11:37 Dose: 10 ml Sodium Chloride (Saline Flush) 2.5 ml FLUSH ASDIRECTED PRN PRN Reason: Keep Vein Open Last Admin: 03/27/18 11:37 Dose: 2.5 ml Sotalol HCl (Betapace) 160 mg PO BID [facility] Last Admin: 03/31/18 08:33 Dose: 160 mg Temazepam (Restoril) 15 mg PO BEDTIME PRN PRN Reason: Sleep Triamterene/HCTZ (Maxzide 25-37.5 Mg) 1 each PO DAILY [facility] Last Admin: 03/31/18 08:34 Dose: 1 each Discontinued Medications Albuterol/Ipratropium (Duoneb 3.0-0.5 Mg/3 Ml) 3 ml NEB ONETIME ONE Stop: 03/27/18 11:27 Last Admin: 03/27/18 11:33 Dose: Not Given Digoxin (Lanoxin) 250 mcg IVPUSH Q6H [facility] Stop: 03/28/18 03:46 Last Admin: 03/28/18 02:54 Dose: Not Given Digoxin (Lanoxin) 250 mcg PO ONETIME ONE Stop: 03/28/18 07:01 Last Admin: 03/28/18 06:54 Dose: 250 mcg Diltiazem HCl (Diltiazem) 20 mg IVPUSH ONETIME ONE Stop: 03/27/18 11:34 Last Admin: 03/27/18 12:27 Dose: 20 mg Diltiazem HCl (Diltiazem) 25 mg IVPUSH ONETIME ONE Stop: 03/27/18 12:53 Last Admin: 09/20/18 13:32 Dose: 25 mg Diltiazem HCl (Cardizem Cd) 180 mg PO DAILY [facility] Last Admin: 03/27/18 18:17 Dose: 180 mg Diltiazem HCl (Cardizem Cd) 240 mg PO NOW STA Stop: 03/27/18 21:47 Last Admin: 03/27/18 22:09 Dose: 240 mg Sodium Chloride (Normal Saline) 500 mls @ 999 mls/hr IV STAT [facility] Last Admin: 03/27/18 11:37 Dose: 999 mls/hr Levofloxacin/Dextrose 750 mg/ (Premix) 150 mls @ 100 mls/hr IV ONETIME ONE Stop: 03/27/18 15:24 Last Admin: 03/27/18 14:46 Dose: 100 mls/hr Influenza Virus Vaccine (Pharmacy To Dose - Influenza Vaccine) 1 each IM ONETIME ONE Stop: 03/31/18 08:46 - Problem List & Annotations (1) Pneumonia SNOMED Code(s): 991347193 Code(s): J18.9 - PNEUMONIA, UNSPECIFIED ORGANISM Status: Acute Priority: High Current Visit: Yes Qualifiers: Pneumonia type: due to unspecified organism Laterality: bilateral Lung location: lower lobe of lung Qualified Code(s): J18.1 - Lobar pneumonia, unspecified organism (2) Atrial fibrillation with RVR SNOMED Code(s): 962951758120145 Code(s): I48.91 - UNSPECIFIED ATRIAL FIBRILLATION Status: Chronic Priority: Medium Current Visit: Yes (3) Chronic kidney disease SNOMED Code(s): 559002672 Code(s): N18.9 - CHRONIC KIDNEY DISEASE, UNSPECIFIED Status: Acute Current Visit: Yes Qualifiers: Chronic kidney disease stage: stage 3 (moderate) Qualified Code(s): N18.3 - Chronic kidney disease, stage 3 (moderate) - My Orders Last 24 Hours: My Active Orders 03/31/18 08:45 Influenza Vaccine Charge [RC] .DISCHARGE - Assessment Assessment:: I seen and evaluated the patient independently of medical/surgery registered nurse. The patient does have severe right-sided pneumonia. Consideration is for aspiration pneumonia. I agree with resident's findings with regards to further evaluation and treatment. See orders.
[2018-03-31] MEDS: Levofloxacin/Dextrose 5%-Water 750 MG in Premix Bag 1 BAG IV SCH (15:28)
--- NOTE | 2018-03-31 15:41 | CR ---
EXAM DATE: 03/27/18 PATIENT'S AGE: 83 Patient: MANISH PEDROZA Facility: [place], [place] Site . Site : [id number] Study: XRay Chest [id number]/23/2018 10:06:11 AM Ordering Physician: Gladis Hurley Final Report: INDICATION: Pneumonia. TECHNIQUE: AP portable chest x-ray. COMPARISON: Chest x-ray 03/27/2018. FINDINGS: Moderate ill-defined opacity in the right mid and lower lung has 2 components medially and laterally. The lateral component is slightly denser but the medial component is stable. Medially this could be related to some component of prominence of the right pulmonary artery and bronchovascular markings however in the infrahilar region and lung base and is somewhat rounded. Findings could be related to a pneumonia but are not specific. Follow-up PA and lateral chest x -ray would be helpful in further characterizing and ensuring the right chest opacity resolves. Small amount of pleural fluid in the right costophrenic angle. Mediastinum mildly prominent but stable. Heart size upper limits of normal. Benign calcified granuloma left lung base projected in the deep gastric gaseous distention. Mild linear atelectasis left lung. Remainder negative. Dictated by Ramírez Rios MD @ Mar 30 2018 10:38AM (Electronic Signature) Report Signed by Proxy. BOBBY
--- NOTE | 2018-03-31 16:36 | CR ---
EXAMINATION: Oropharyngeal video swallow study. HISTORY: Pneumonia COMPARISON: None TECHNIQUE: Lateral images obtained, speech pathologist present, various barium consistencies provided . FINDINGS: There is good bolus formation and transfer. There is adequate epiglottic inversion and trac heal elevation. No laryngeal penetration or tracheal aspiration noted. IMPRESSION: Unremarkable video swallow study. Please see speech pathology report for additional detai ls.
[2018-03-31] MEDS: atorvaSTATin 10 MG Tab PO SCH (21:16)
[2018-04-01] MEDS: Cefepime 2 GM in Premix Bag 1 BAG IV SCH ×2 (02:04→11:03)
[2018-04-01] MEDS: Diltiazem 120 MG Cap.CD PO SCH (09:24)
[2018-04-01] MEDS: Sotalol 80 MG Tab PO SCH (09:25)
[2018-04-01] MEDS: Multivitamin Tab PO SCH (09:26)
[2018-04-01] MEDS: Digoxin 125 MCG Tab PO SCH (09:26)
[2018-04-01] MEDS: Aspirin 81 MG Tab.EC PO SCH (09:26)
[2018-04-01] MEDS: Docusate Sodium 100 MG Cap PO SCH (09:26)
[2018-04-01] MEDS: Hydrochlorothiazide/Triamterene 25-37.5 Tab PO SCH (09:26)
--- NOTE | 2018-04-01 10:14 | PCM.DCSUM1 ---
<Lu BrownandaMahesh - Last Filed: 04/01/18 11:05> Discharge Summary - Hospital Course Free Text/Narrative:: Admission date: 03/27/18 Discharge date: 04/01/18 Admission diagnosis: 1. Atrial fibrillation with RVR 2. Pneumonia 3. Chronic kidney disease Discharge diagnosis: 1. Community acquired pneumonia 2. Atrial fibrillation, rate controlled 3. Chronic kidney disease Hospital course: Facundo Sanford is an 83 y/o male with history of Afib on warfarin who presented to the ER complaining of worsening shortness of breath. In the ER, he was found to be in Afib with RVR with heart in the upper 120's. He was given diltiazem and digoxin and that resulted in rate control. In addition, patient was noted to have a right lung consolidation. He was admitted for community acquired pneumonia and Afib with RVR. He was started on cefepime and levaquin and hydrated. His symptoms improved. He remained afebrile not needing supplemental oxygenation. For his Afib his diltiazem was increased to 240 mg daily and digoxin was started. His warfarin was held during this hospitalization since his INR was therapeutic and he was complaining of a nose bleed. He was advised to continue taking this warfarin at home. At discharge, he was prescribed Azithromycin 250 mg PO daily for 5 days. In addition, he was advised to take diltiazem 240 mg PO daily. He will need to follow-up with her primary care provider within 1 week. Follow-up: primary care provider within 1 week. - Discharge Data Discharge Date: 04/01/18 Discharge Disposition: Home, Self-Care 01 Condition: Stable - Patient Summary/Data Consults: Consultations 03/30/18 12:41 Consult to Physical Therapy [PT Evaluation and Treatment] [CONS] Routine - Patient Instructions Diet: Heart Healthy Diet Activity: As Tolerated Notify Provider of: Fever, Increased Pain, Swelling and Redness, Nausea and/or Vomiting - Discharge Plan *PRESCRIPTION DRUG MONITORING PROGRAM REVIEWED*: Not Applicable *COPY OF PRESCRIPTION DRUG MONITORING REPORT IN PATIENT AFIA: Not Applicable Prescriptions/Med Rec: Diltiazem [Cardizem CD] 240 mg PO DAILY 30 Days cap.cd Home Medications: Home Meds Acetaminophen [Tylenol Extra Strength] 1,000 mg PO Q6H PRN 10/24/13 [History] Calcium Carbonate 600 mg PO DAILY 10/24/13 [History] Multivitamin [Multivitamins] 1 each PO DAILY 10/24/13 [History] Cobb-3 Fatty Acids/DHA/EPA [Megared Plant-Cobb 300 mg Cap] 300 mg PO DAILY [History] Sotalol [Betapace] 160 mg PO BID 10/24/13 [History] Triamterene/Hydrochlorothiazid [Triamterene-HCTZ 37.5-25 MG] 1 each PO DAILY [History] atorvaSTATin [Lipitor] 10 mg PO BEDTIME 10/24/13 [History] Aspirin [Halfprin] 81 mg PO DAILY 03/11/18 [History] Warfarin [Coumadin] 2 mg PO DAILY 03/23/18 [History] Diltiazem [Cardizem CD] 240 mg PO DAILY 30 Days cap.cd 04/01/18 [Rx] Patient Handouts: Azithromycin tablets, Diltiazem tablets, Community-Acquired Pneumonia, Adult Forms: ED Department Discharge Referrals: PCP,None [Primary Care Provider] - Kendrick Ramirez MD [Physician] - 04/14/18 3:30 pm - Discharge Summary/Plan Comment DC Time >30 min.: No - Patient Data Vitals - Most Recent: Last Vital Signs Temp 36.1 C 04/01/18 07:42 Pulse 116 H 04/01/18 09:26 Resp 16 04/01/18 07:42 BP 123/82 04/01/18 09:25 Pulse Ox 95 04/01/18 07:42 Weight - Most Recent: 91.6 kg I&O - Last 24 hours: Intake & Output 03/31/18 04/01/18 04/01/18 22:59 06:59 14:59 Intake Total 1480 700 Output Total 1150 600 Balance 330 100 Lab Results - Last 24 hrs: Laboratory Results - last 24 hr 04/01/18 04/01/18 04/01/18 Range/Units 07:08 07:08 07:08 WBC 11.09 H (4.0-11.0) K/uL RBC 4.25 L (4.50-5.90) M/uL Hgb 12.7 L (13.0-17.0) g/dL Hct 38.1 (38.0-50.0) % MCV 89.6 (80.0-98.0) fL MCH 29.9 (27.0-32.0) pg MCHC 33.3 (31.0-37.0) g/dL RDW Std Deviation 48.1 (28.0-62.0) fl RDW Coeff of Heydi 15 (11.0-15.0) % Plt Count 187 (150-400) K/uL MPV 11.10 (7.40-12.00) fL Neut % (Auto) 72.4 (48.0-80.0) % Lymph % (Auto) 12.7 L (16.0-40.0) % [place] % (Auto) 14.4 (0.0-15.0) % Eos % (Auto) 0.4 (0.0-7.0) % Baso % (Auto) 0.1 (0.0-1.5) % Neut # (Auto) 8.0 H (1.4-5.7) K/uL Lymph # (Auto) 1.4 (0.6-2.4) K/uL [place] # (Auto) 1.6 H (0.0-0.8) K/uL Eos # (Auto) 0.0 (0.0-0.7) K/uL Baso # (Auto) 0.0 (0.0-0.1) K/uL Nucleated RBC % 0.0 /100WBC Nucleated RBCs # 0 K/uL INR 1.72 Sodium 136 (136-148) mmol/L Potassium 4.2 (3.5-5.1) mmol/L Chloride 101 (98-107) mmol/L Carbon Dioxide 25.9 (21.0-32.0) mmol/L BUN 27 H (7.0-18.0) mg/dL Creatinine 1.5 H (0.8-1.3) mg/dL Est Cr Clr Drug Dosing 34.85 mL/min Estimated GFR (MDRD) 44.9 ml/min Glucose 129 H (74-106) mg/dL Calcium 10.7 H (8.5-10.1) mg/dL Total Bilirubin 0.7 (0.2-1.0) mg/dL AST 23 (15-37) IU/L ALT 35 (14-63) IU/L Alkaline Phosphatase 94 (46-116) U/L Total Protein 7.1 (6.4-8.2) g/dL Albumin 2.5 L (3.4-5.0) g/dL Globulin 4.6 H (2.0-3.5) g/dL Albumin/Globulin Ratio 0.5 L (1.3-2.8) ANAHY Results - Last 24 hrs: Microbiology 03/27/18 14:05 Aerobic Blood Culture - Preliminary Blood - Arm, Left NO GROWTH AFTER 4 DAYS Anaerobic Blood Culture - Preliminary NO GROWTH AFTER 4 DAYS 03/27/18 13:58 Aerobic Blood Culture - Preliminary Blood - Arm, Right NO GROWTH AFTER 4 DAYS Anaerobic Blood Culture - Preliminary NO GROWTH AFTER 4 DAYS Med Orders - Current: Current Medications Acetaminophen (Tylenol) 325 mg PO Q4H PRN PRN Reason: Pain (Mild 1-3)/fever Aspirin (Halfprin) 81 mg PO DAILY [facility] Last Admin: 04/01/18 09:26 Dose: 81 mg Atorvastatin Calcium (Lipitor) 10 mg PO BEDTIME [facility] Last Admin: 03/31/18 21:16 Dose: 10 mg Digoxin (Lanoxin) 125 mcg PO DAILY [facility] Last Admin: 04/01/18 09:26 Dose: 125 mcg Diltiazem HCl (Cardizem Cd) 240 mg PO DAILY [facility] Last Admin: 04/01/18 09:24 Dose: 240 mg Docusate Sodium (Colace) 100 mg PO BID [facility] Last Admin: 04/01/18 09:26 Dose: 100 mg Cefepime HCl 2 gm/ Premix 50 mls @ 100 mls/hr IV Q8H [facility] Last Admin: 04/01/18 02:04 Dose: 100 mls/hr Levofloxacin/Dextrose 750 mg/ (Premix) 150 mls @ 100 mls/hr IV Q48H [facility] Last Admin: 03/31/18 15:28 Dose: 100 mls/hr Metoprolol Tartrate (Lopressor) 5 mg IV Q4H PRN PRN Reason: HEART RATE GREATER THAN 100 Last Admin: 03/29/18 18:36 Dose: 5 mg Multivitamins/Minerals/Vitamin C (Tab-A-Kerrie) 1 tab PO DAILY [facility] Last Admin: 04/01/18 09:26 Dose: 1 tab Polyethylene Glycol (Miralax) 17 gm PO TID PRN PRN Reason: Constipation Sodium Chloride (Saline Flush) 10 ml FLUSH ASDIRECTED PRN PRN Reason: Keep Vein Open Last Admin: 03/27/18 11:37 Dose: 10 ml Sodium Chloride (Saline Flush) 2.5 ml FLUSH ASDIRECTED PRN PRN Reason: Keep Vein Open Last Admin: 03/27/18 11:37 Dose: 2.5 ml Sotalol HCl (Betapace) 160 mg PO BID [facility] Last Admin: 04/01/18 09:25 Dose: 160 mg Temazepam (Restoril) 15 mg PO BEDTIME PRN PRN Reason: Sleep Triamterene/HCTZ (Maxzide 25-37.5 Mg) 1 each PO DAILY [facility] Last Admin: 04/01/18 09:26 Dose: 1 each Discontinued Medications Albuterol/Ipratropium (Duoneb 3.0-0.5 Mg/3 Ml) 3 ml NEB ONETIME ONE Stop: 03/27/18 11:27 Last Admin: 03/27/18 11:33 Dose: Not Given Digoxin (Lanoxin) 250 mcg IVPUSH Q6H [facility] Stop: 03/28/18 03:46 Last Admin: 03/28/18 02:54 Dose: Not Given Digoxin (Lanoxin) 250 mcg PO ONETIME ONE Stop: 03/28/18 07:01 Last Admin: 03/28/18 06:54 Dose: 250 mcg Diltiazem HCl (Diltiazem) 20 mg IVPUSH ONETIME ONE Stop: 03/27/18 11:34 Last Admin: 03/27/18 12:27 Dose: 20 mg Diltiazem HCl (Diltiazem) 25 mg IVPUSH ONETIME ONE Stop: 03/27/18 12:53 Last Admin: 03/27/18 13:32 Dose: 25 mg Diltiazem HCl (Cardizem Cd) 180 mg PO DAILY [facility] Last Admin: 03/27/18 18:17 Dose: 180 mg Diltiazem HCl (Cardizem Cd) 240 mg PO NOW STA Stop: 03/27/18 21:47 Last Admin: 03/27/18 22:09 Dose: 240 mg Sodium Chloride (Normal Saline) 500 mls @ 999 mls/hr IV STAT [facility] Last Admin: 03/27/18 11:37 Dose: 999 mls/hr Levofloxacin/Dextrose 750 mg/ (Premix) 150 mls @ 100 mls/hr IV ONETIME ONE Stop: 03/27/18 15:24 Last Admin: 03/27/18 14:46 Dose: 100 mls/hr Influenza Virus Vaccine (Pharmacy To Dose - Influenza Vaccine) 1 each IM ONETIME ONE Stop: 03/31/18 08:46 <TatianaLucian brody - Last Filed: 04/01/18 11:34> Discharge Summary - Discharge Diagnosis/Problem(s) (1) Pneumonia SNOMED Code(s): 262814056 ICD Code: J18.9 - PNEUMONIA, UNSPECIFIED ORGANISM Status: Acute Priority : High Current Visit: Yes Qualifiers: Pneumonia type: due to unspecified organism Laterality: bilateral Lung location: lower lobe of lung Qualified Code(s): J18.1 - Lobar pneumonia, unspecified organism (2) Atrial fibrillation with RVR SNOMED Code(s): 897579779110657 ICD Code: I48.91 - UNSPECIFIED ATRIAL FIBRILLATION Status: Chronic Priority: Medium Current Visit: Yes (3) Chronic kidney disease SNOMED Code(s): 249226281 ICD Code: N18.9 - CHRONIC KIDNEY DISEASE, UNSPECIFIED Status: Acute Current Visit: Yes Qualifiers: Chronic kidney disease stage: stage 3 (moderate) Qualified Code(s): N18.3 - Chronic kidney disease, stage 3 (moderate) - Patient Summary/Data Consults: Consultations 03/30/18 12:41 Consult to Physical Therapy [PT Evaluation and Treatment] [CONS] Routine - Discharge Summary/Plan Comment Discharge Summary/Plan Comment: I seen the patient independently of medical equipment repair technician and agree with his findings and plan of care. Patient has been discharged from acute hospitalization on by mouth antibiotics with recommendation to follow up with his primary care with regards to the pneumonia as well as a slight rise in the patient's overall creatinine. His vital signs been stable. See orders. - Patient Data Vitals - Most Recent: Last Vital Signs Temp 36.1 C 04/01/18 07:42 Pulse 116 H 04/01/18 09:26 Resp 16 04/01/18 07:42 BP 123/82 04/01/18 09:25 Pulse Ox 95 04/01/18 07:42 I&O - Last 24 hours: Intake & Output 03/31/18 04/01/18 04/01/18 22:59 06:59 14:59 Intake Total 1480 700 Output Total 1150 600 Balance 330 100 Lab Results - Last 24 hrs: Laboratory Results - last 24 hr 04/01/18 04/01/18 04/01/18 Range/Units 07:08 07:08 07:08 WBC 11.09 H (4.0-11.0) K/uL RBC 4.25 L (4.50-5.90) M/uL Hgb 12.7 L (13.0-17.0) g/dL Hct 38.1 (38.0-50.0) % MCV 89.6 (80.0-98.0) fL MCH 29.9 (27.0-32.0) pg MCHC 33.3 (31.0-37.0) g/dL RDW Std Deviation 48.1 (28.0-62.0) fl RDW Coeff of Heydi 15 (11.0-15.0) % Plt Count 187 (150-400) K/uL MPV 11.10 (7.40-12.00) fL Neut % (Auto) 72.4 (48.0-80.0) % Lymph % (Auto) 12.7 L (16.0-40.0) % [place] % (Auto) 14.4 (0.0-15.0) % Eos % (Auto) 0.4 (0.0-7.0) % Baso % (Auto) 0.1 (0.0-1.5) % Neut # (Auto) 8.0 H (1.4-5.7) K/uL Lymph # (Auto) 1.4 (0.6-2.4) K/uL [place] # (Auto) 1.6 H (0.0-0.8) K/uL Eos # (Auto) 0.0 (0.0-0.7) K/uL Baso # (Auto) 0.0 (0.0-0.1) K/uL Nucleated RBC % 0.0 /100WBC Nucleated RBCs # 0 K/uL INR 1.72 Sodium 136 (136-148) mmol/L Potassium 4.2 (3.5-5.1) mmol/L Chloride 101 (98-107) mmol/L Carbon Dioxide 25.9 (21.0-32.0) mmol/L BUN 27 H (7.0-18.0) mg/dL Creatinine 1.5 H (0.8-1.3) mg/dL Est Cr Clr Drug Dosing 34.85 mL/min Estimated GFR (MDRD) 44.9 ml/min Glucose 129 H (74-106) mg/dL Calcium 10.7 H (8.5-10.1) mg/dL Total Bilirubin 0.7 (0.2-1.0) mg/dL AST 23 (15-37) IU/L ALT 35 (14-63) IU/L Alkaline Phosphatase 94 (46-116) U/L Total Protein 7.1 (6.4-8.2) g/dL Albumin 2.5 L (3.4-5.0) g/dL Globulin 4.6 H (2.0-3.5) g/dL Albumin/Globulin Ratio 0.5 L (1.3-2.8) ANAHY Results - Last 24 hrs: Microbiology 03/27/18 14:05 Aerobic Blood Culture - Preliminary Blood - Arm, Left NO GROWTH AFTER 4 DAYS Anaerobic Blood Culture - Preliminary NO GROWTH AFTER 4 DAYS 03/27/18 13:58 Aerobic Blood Culture - Preliminary Blood - Arm, Right NO GROWTH AFTER 4 DAYS Anaerobic Blood Culture - Preliminary NO GROWTH AFTER 4 DAYS Med Orders - Current: Current Medications Acetaminophen (Tylenol) 325 mg PO Q4H PRN PRN Reason: Pain (Mild 1-3)/fever Aspirin (Halfprin) 81 mg PO DAILY [facility] Last Admin: 04/01/18 09:26 Dose: 81 mg Atorvastatin Calcium (Lipitor) 10 mg PO BEDTIME [facility] Last Admin: 03/31/18 21:16 Dose: 10 mg Digoxin (Lanoxin) 125 mcg PO DAILY [facility] Last Admin: 04/01/18 09:26 Dose: 125 mcg Diltiazem HCl (Cardizem Cd) 240 mg PO DAILY [facility] Last Admin: 04/01/18 09:24 Dose: 240 mg Docusate Sodium (Colace) 100 mg PO BID [facility] Last Admin: 04/01/18 09:26 Dose: 100 mg Cefepime HCl 2 gm/ Premix 50 mls @ 100 mls/hr IV Q8H [facility] Last Admin: 04/01/18 11:03 Dose: Not Given Levofloxacin/Dextrose 750 mg/ (Premix) 150 mls @ 100 mls/hr IV Q48H [facility] Last Admin: 03/31/18 15:28 Dose: 100 mls/hr Metoprolol Tartrate (Lopressor) 5 mg IV Q4H PRN PRN Reason: HEART RATE GREATER THAN 100 Last Admin: 03/29/18 18:36 Dose: 5 mg Multivitamins/Minerals/Vitamin C (Tab-A-Kerrie) 1 tab PO DAILY [facility] Last Admin: 04/01/18 09:26 Dose: 1 tab Polyethylene Glycol (Miralax) 17 gm PO TID PRN PRN Reason: Constipation Sodium Chloride (Saline Flush) 10 ml FLUSH ASDIRECTED PRN PRN Reason: Keep Vein Open Last Admin: 03/27/18 11:37 Dose: 10 ml Sodium Chloride (Saline Flush) 2.5 ml FLUSH ASDIRECTED PRN PRN Reason: Keep Vein Open Last Admin: 03/27/18 11:37 Dose: 2.5 ml Sotalol HCl (Betapace) 160 mg PO BID [facility] Last Admin: 04/01/18 09:25 Dose: 160 mg Temazepam (Restoril) 15 mg PO BEDTIME PRN PRN Reason: Sleep Triamterene/HCTZ (Maxzide 25-37.5 Mg) 1 each PO DAILY [facility] Last Admin: 04/01/18 09:26 Dose: 1 each Discontinued Medications Albuterol/Ipratropium (Duoneb 3.0-0.5 Mg/3 Ml) 3 ml NEB ONETIME ONE Stop: 03/27/18 11:27 Last Admin: 03/27/18 11:33 Dose: Not Given Digoxin (Lanoxin) 250 mcg IVPUSH Q6H [facility] Stop: 03/28/18 03:46 Last Admin: 03/28/18 02:54 Dose: Not Given Digoxin (Lanoxin) 250 mcg PO ONETIME ONE Stop: 03/28/18 07:01 Last Admin: 03/28/18 06:54 Dose: 250 mcg Diltiazem HCl (Diltiazem) 20 mg IVPUSH ONETIME ONE Stop: 03/27/18 11:34 Last Admin: 03/27/18 12:27 Dose: 20 mg Diltiazem HCl (Diltiazem) 25 mg IVPUSH ONETIME ONE Stop: 03/27/18 12:53 Last Admin: 03/27/18 13:32 Dose: 25 mg Diltiazem HCl (Cardizem Cd) 180 mg PO DAILY [facility] Last Admin: 03/27/18 18:17 Dose: 180 mg Diltiazem HCl (Cardizem Cd) 240 mg PO NOW STA Stop: 03/27/18 21:47 Last Admin: 03/27/18 22:09 Dose: 240 mg Sodium Chloride (Normal Saline) 500 mls @ 999 mls/hr IV STAT [facility] Last Admin: 03/27/18 11:37 Dose: 999 mls/hr Levofloxacin/Dextrose 750 mg/ (Premix) 150 mls @ 100 mls/hr IV ONETIME ONE Stop: 03/27/18 15:24 Last Admin: 03/27/18 14:46 Dose: 100 mls/hr Influenza Virus Vaccine (Pharmacy To Dose - Influenza Vaccine) 1 each IM ONETIME ONE Stop: 03/31/18 08:46 Last Admin: 04/01/18 10:57 Dose: Not Given
[2018-04-01] MEDS ORDERED: INFLUENZA VACCINE 30 MCG/0.25 ML IM ONE (10:34)
== END 2018-04-01 11:50 | disposition home or self-care (01) | DRG 195 ==
LOC: MW.ED 10:44 → MW.MS 13:56
PROVIDERS: ADMIT Family Medicine; ATTEND Family Medicine
PROC: 2Y51X5Z Removal of Nasal Packing Material (ICD-10-PCS; principal; 2018-03-27)
DX: J18.9 Pneumonia, unspecified organism (principal); I48.91 Unspecified atrial fibrillation; I10 Essential (primary) hypertension; I12.9 Hypertensive chronic kidney disease with stage 1 through stage 4 chronic kidney disease, or unspecified chronic kidney disease; N18.3 Chronic kidney disease, stage 3 (moderate); R06.02 Shortness of breath; R07.9 Chest pain, unspecified; Z79.899 Other long term (current) drug therapy; Z79.01 Long term (current) use of anticoagulants; Z79.82 Long term (current) use of aspirin; Z48.00 Encounter for change or removal of nonsurgical wound dressing; Z86.73 Personal history of transient ischemic attack (TIA), and cerebral infarction without residual deficits
CPT/HCPCS: 30999; 36415; 71045; 80053; 83690; 83880; 84484; 85025; 85610; 87086; 93005; 96361; 96374; 96376; 99284; J3490 ×2; J7040; 74230; 74230-26; 80048; 80162; 81001; 83735; 87040; 90662; 92611-GN; 96375; 97161-GP; 99283; A9270-GY; G0008; J0692; J1160; J1956

== ENCOUNTER 2018-07-21 23:05 | Emergency (ER) | payer MEDICARE, OTHER ==
--- NOTE | 2018-07-21 23:28 | EDM.PDOC ---
ED HPI GENERAL MEDICAL PROBLEM - General Chief Complaint: ENT Problem Stated Complaint: PT HAS NOSEBLEED Time Seen by Provider: 07/21/18 23:27 Source of Information: Reports: Patient - History of Present Illness INITIAL COMMENTS - FREE TEXT/NARRATIVE: HISTORY AND PHYSICAL: History of present illness: Patient on aspirin and xeralto presents with nosebleed for 30 minutes Review of systems: As per history of present illness and below otherwise all systems reviewed and negative. Past medical history: As per history of present illness and as reviewed below otherwise noncontributory. Surgical history: As per history of present illness and as reviewed below otherwise noncontributory. Social history: No reported history of drug or alcohol abuse. Family history: As per history of present illness and as reviewed below otherwise noncontributory. Physical exam: HEENT: Atraumatic, normocephalic, pupils reactive, negative for conjunctival pallor or scleral icterus, mucous membranes moist, throat clear, neck supple, nontender, trachea midline. Lungs: Clear to auscultation, breath sounds equal bilaterally, chest nontender. Heart: S1S2, regular, negative for clicks, rubs, or JVD. Abdomen: Soft, nondistended, nontender. Negative for masses or hepatosplenomegaly. Negative for costovertebral tenderness. Pelvis: Stable nontender. Genitourinary: Deferred. Rectal: Deferred. Extremities: Atraumatic, negative for cords or calf pain. Neurovascular unremarkable. Neuro: Awake, alert, oriented. Cranial nerves II through XII unremarkable. Cerebellum unremarkable. Motor and sensory unremarkable throughout. Exam nonfocal. Diagnostics: []CBC CMP on file within last 4 days Therapeutics: []Nasal balloon device inflated with 5 mL Impression: []Epistaxis-resolved Definitive disposition and diagnosis as appropriate pending reevaluation and review of above. - Related Data Allergies Allergy/AdvReac Type Severity Reaction Status Date / Time poison weed Allergy Itching Uncoded 07/21/18 23:18 Home Meds: Home Meds Multivitamin [Multivitamins] 1 each PO DAILY 10/24/13 [History] atorvaSTATin [Lipitor] 10 mg PO BEDTIME 10/24/13 [History] Aspirin [Halfprin] 81 mg PO DAILY 03/11/18 [History] Cyanocobalamin (Vitamin B12) [Vitamin B12] 100 mcg PO DAILY 05/09/18 [History] Acetaminophen [Pain Reliever] 1,000 mg PO Q4HR PRN 06/07/18 [History] Calcium Carbonate/Vitamin D3 [Calcium 500 + Vit D Caplet] 1 tab PO DAILY [History] Diltiazem [Cardizem CD] 180 mg PO DAILY 06/07/18 [History] Rivaroxaban [Xarelto] 20 mg PO DAILY 06/07/18 [History] Digoxin 1 tab PO DAILY 07/02/18 [History] Furosemide 40 mg PO DAILY 07/02/18 [History] Iron Polysaccharide Complex [Poly-Iron] 1 cap PO BID 07/02/18 [History] Mag Oxide/D3/Turmeric Rt Xt [Magnesium-Vit D3-Turmeric Cap] 2 each PO BID [History] Cornelio Red 1 mg PO DAILY 07/02/18 [History] Metoprolol Tartrate 100 mg PO BID 07/02/18 [History] Midodrine 2 tab PO TID 07/02/18 [History] Tamsulosin [Flomax] 0.4 mg PO BEDTIME 07/02/18 [History] Past Medical History HEENT History: Reports: Impaired Vision Other HEENT History: wears glasses Cardiovascular History: Reports: Hypertension, Pacemaker Respiratory History: Reports: Pneumonia, Recurrent Genitourinary History: Reports: Chronic Renal Insuffiency Neurological History: Reports: CVA, Other (See Below) Other Neuro History: stroke 3 years ago Hematologic History: Reports: Anticoagulation Therapy Immunologic History: Reports: None 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 - Infectious Disease History Infectious Disease History: Reports: Chicken Pox, Measles, Mumps - Past Surgical History Head Surgeries/Procedures: Reports: None HEENT Surgical History: Reports: None Cardiovascular Surgical History: Reports: None Respiratory Surgical History: Reports: None Male Surgical History: Reports: None Neurological Surgical History: Reports: None Oncologic Surgical History: Reports: None Social & Family History - Family History Family Medical History: Noncontributory HEENT: Reports: None - Tobacco Use Smoking Status *Q: Never Smoker - Caffeine Use Caffeine Use: Reports: Coffee - Recreational Drug Use Recreational Drug Use: No ED ROS GENERAL - Review of Systems Review Of Systems: See Below ED EXAM, GENERAL - Physical Exam Exam: See Below Course - Vital Signs Last Recorded V/S: Last Vital Signs Temp 97.2 F 07/21/18 23:05 Pulse 90 07/21/18 23:05 Resp 18 07/21/18 23:05 BP 117/82 07/21/18 23:05 Pulse Ox 93 L 07/21/18 23:05 Departure - Departure Time of Disposition: 00:07 Disposition: Home, Self-Care 01 Condition: Good Clinical Impression: Epistaxis - Discharge Information Referrals: PCP,None [Primary Care Provider] - Forms: ED Department Discharge Additional Instructions: The following information is given to patients seen in the emergency department who are being discharged to home. This information is to outline your options for follow-up care. We provide all patients seen in our emergency department with a follow-up referral. The need for follow-up, as well as the timing and circumstances, are variable depending upon the specifics of your emergency department visit. If you don't have a primary care physician on staff, we will provide you with a referral. We always advise you to contact your personal physician following an emergency department visit to inform them of the circumstance of the visit and for follow-up with them and/or the need for any referrals to a consulting specialist. The emergency department will also refer you to a specialist when appropriate. This referral assures that you have the opportunity for follow-up care with a specialist. All of these measure are taken in an effort to provide you with optimal care, which includes your follow-up. Under all circumstances we always encourage you to contact your private physician who remains a resource for coordinating your care. When calling for follow-up care, please make the office aware that this follow-up is from your recent emergency room visit. If for any reason you are refused follow-up, please contact the [facility] emergency department at and asked to speak to the emergency department charge nurse.
== END 2018-07-22 00:42 | disposition home or self-care (01) ==
LOC: MW.ED 23:05
DX: R04.0 Epistaxis (principal); I12.0 Hypertensive chronic kidney disease with stage 5 chronic kidney disease or end stage renal disease; N18.5 Chronic kidney disease, stage 5; Z91.048 Other nonmedicinal substance allergy status; Z95.0 Presence of cardiac pacemaker; Z86.73 Personal history of transient ischemic attack (TIA), and cerebral infarction without residual deficits
CPT/HCPCS: 99283

== ENCOUNTER 2018-07-24 13:26 | Emergency (ER) | payer MEDICARE, OTHER ==
--- NOTE | 2018-07-24 14:15 | EDM.PDOC ---
ED HPI GENERAL MEDICAL PROBLEM - General Chief Complaint: ENT Problem Stated Complaint: ENT ISSUES Time Seen by Provider: 07/24/18 14:01 - History of Present Illness INITIAL COMMENTS - FREE TEXT/NARRATIVE: HISTORY AND PHYSICAL: History of present illness: Patient presents for evaluation of recent epistaxis for which nasal packing was placed that has become dislodged with no recurrence of bleeding patient and family request evaluation for cautery here in the absence of bleeding. Review of systems: As per history of present illness and below otherwise all systems reviewed and negative. Past medical history: As per history of present illness and as reviewed below otherwise noncontributory. Surgical history: As per history of present illness and as reviewed below otherwise noncontributory. Social history: No reported history of drug or alcohol abuse. Family history: As per history of present illness and as reviewed below otherwise noncontributory. Physical exam: HEENT: Atraumatic, normocephalic, pupils reactive, mucous membranes moist, throat clear, neck supple, nontender, trachea midline. Left nares without active bleeding or other significant findings. Lungs: Clear to auscultation, breath sounds equal bilaterally, chest nontender. Heart: S1S2, regular, negative for clicks, rubs, or JVD. Abdomen: Soft, nondistended, nontender. Negative for masses or hepatosplenomegaly. Negative for costovertebral tenderness. Pelvis: Stable nontender. Genitourinary: Deferred. Rectal: Deferred. Extremities: Atraumatic, negative for cords or calf pain. Neurovascular unremarkable. Neuro: Awake, alert, oriented. Age-appropriate nonfocal exam Diagnostics: Deferred Therapeutics: None Impression: #1 history of epistaxis #2 history of Hodgkin's disease #3 medical screening exam Definitive disposition and diagnosis as appropriate pending reevaluation and review of above. - Related Data Allergies Allergy/AdvReac Type Severity Reaction Status Date / Time poison weed Allergy Itching Uncoded 07/24/18 13:46 Home Meds: Home Meds Multivitamin [Multivitamins] 1 each PO DAILY 10/24/13 [History] atorvaSTATin [Lipitor] 10 mg PO BEDTIME 10/24/13 [History] Aspirin [Halfprin] 81 mg PO DAILY 03/11/18 [History] Cyanocobalamin (Vitamin B12) [Vitamin B12] 100 mcg PO DAILY 05/09/18 [History] Acetaminophen [Pain Reliever] 1,000 mg PO Q4HR PRN 06/07/18 [History] Calcium Carbonate/Vitamin D3 [Calcium 500 + Vit D Caplet] 1 tab PO DAILY [History] Diltiazem [Cardizem CD] 180 mg PO DAILY 06/07/18 [History] Rivaroxaban [Xarelto] 20 mg PO DAILY 06/07/18 [History] Digoxin 1 tab PO DAILY 07/02/18 [History] Furosemide 40 mg PO DAILY 07/02/18 [History] Iron Polysaccharide Complex [Poly-Iron] 1 cap PO BID 07/02/18 [History] Mag Oxide/D3/Turmeric Rt Xt [Magnesium-Vit D3-Turmeric Cap] 2 each PO BID [History] Cornelio Red 1 mg PO DAILY 07/02/18 [History] Metoprolol Tartrate 100 mg PO BID 07/02/18 [History] Midodrine 2 tab PO TID 07/02/18 [History] Tamsulosin [Flomax] 0.4 mg PO BEDTIME 07/02/18 [History] Past Medical History HEENT History: Reports: Impaired Vision Other HEENT History: wears glasses Cardiovascular History: Reports: Hypertension, Pacemaker Respiratory History: Reports: Pneumonia, Recurrent Genitourinary History: Reports: Chronic Renal Insuffiency Neurological History: Reports: CVA, Other (See Below) Other Neuro History: stroke 3 years ago Hematologic History: Reports: Anticoagulation Therapy Immunologic History: Reports: None 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 - Infectious Disease History Infectious Disease History: Reports: Chicken Pox, Measles, Mumps - Past Surgical History Head Surgeries/Procedures: Reports: None HEENT Surgical History: Reports: None Cardiovascular Surgical History: Reports: None Respiratory Surgical History: Reports: None Male Surgical History: Reports: None Neurological Surgical History: Reports: None Oncologic Surgical History: Reports: None Social & Family History - Family History Family Medical History: Noncontributory HEENT: Reports: None - Tobacco Use Smoking Status *Q: Former Smoker Used Tobacco, but Quit: Yes Month/Year Tobacco Last Used: 54 years ago - Caffeine Use Caffeine Use: Reports: Coffee - Recreational Drug Use Recreational Drug Use: No ED ROS GENERAL - Review of Systems Review Of Systems: ROS reveals no pertinent complaints other than HPI. ED EXAM, GENERAL - Physical Exam Exam: See Below (See dictation) Course - Vital Signs Last Recorded V/S: Last Vital Signs Temp 36.9 C 07/24/18 13:47 Pulse 82 07/24/18 13:47 Resp 16 07/24/18 13:47 BP 100/61 07/24/18 13:47 Pulse Ox 97 07/24/18 13:47 Departure - Departure Time of Disposition: 14:12 Disposition: Home, Self-Care 01 Condition: Good Clinical Impression: History of epistaxis - Discharge Information Referrals: Farhad Gil MD [Primary Care Provider] - Additional Instructions: The following information is given to patients seen in the emergency department who are being discharged to home. This information is to outline your options for follow-up care. We provide all patients seen in our emergency department with a follow-up referral. The need for follow-up, as well as the timing and circumstances, are variable depending upon the specifics of your emergency department visit. If you don't have a primary care physician on staff, we will provide you with a referral. We always advise you to contact your personal physician following an emergency department visit to inform them of the circumstance of the visit and for follow-up with them and/or the need for any referrals to a consulting specialist. The emergency department will also refer you to a specialist when appropriate. This referral assures that you have the opportunity for followup care with a specialist. All of these measure are taken in an effort to provide you with optimal care, which includes your followup. Under all circumstances we always encourage you to contact your private physician who remains a resource for coordinating your care. When calling for followup care, please make the office aware that this follow-up is from your recent emergency room visit. If for any reason you are refused follow-up, please contact the [facility] emergency department at and asked to speak to the emergency department charge nurse. [facility] Specialty Care - ENT [facility] [place] [id number] Follow-up primary medical doctor ENT referral as discussed return as needed as discussed
== END 2018-07-24 14:34 | disposition home or self-care (01) ==
LOC: MW.ED 13:26
DX: Z13.9 Encounter for screening, unspecified (principal); I12.9 Hypertensive chronic kidney disease with stage 1 through stage 4 chronic kidney disease, or unspecified chronic kidney disease; N18.9 Chronic kidney disease, unspecified; Z85.72 Personal history of non-Hodgkin lymphomas; Z91.09 Other allergy status, other than to drugs and biological substances; Z79.82 Long term (current) use of aspirin; Z79.899 Other long term (current) drug therapy; Z87.891 Personal history of nicotine dependence; Z86.73 Personal history of transient ischemic attack (TIA), and cerebral infarction without residual deficits
CPT/HCPCS: 99283

== ENCOUNTER 2018-08-16 01:23 | Emergency (ER) | payer MEDICARE, OTHER ==
--- NOTE | 2018-08-16 01:43 | EDM.PDOC ---
ED HPI GENERAL MEDICAL PROBLEM - General Chief Complaint: ENT Problem Stated Complaint: NOSE BLEED Time Seen by Provider: 08/16/18 01:31 - History of Present Illness INITIAL COMMENTS - FREE TEXT/NARRATIVE: HISTORY AND PHYSICAL: History of present illness: The patient is an 83-year-old male who is well known to me due to frequent ER visits for A. fib with RVR who has since his last visit for that complaint received a pacemaker and also has a history of chronic anticoagulation therapy with Xarelto and presents with a left-sided nosebleed that started approximately an hour and a half ago. This is the fourth time the patient has been seen for epistaxis and it is always on the left side but he has never followed up with ENT to have evaluation of why this is occurring. The patient had a normal day yesterday and went to sleep and was asleep when it started to bleed. He is unsure if he rubbed it or bumped it and is also unsure as she was asleep when it started. They attempted to hold pressure and it did not stop so they came here. He's had no recent cold runny nose sore throat fever coughing or chest pain. On the prior episodes he has been here he has almost always had to have a nasal pack placed. He currently in the ED complains of no pain such as head pain nose pain face pain Review of systems: As per history of present illness and below otherwise all systems reviewed and negative. Past medical history: As per history of present illness and as reviewed below otherwise noncontributory. Surgical history: As per history of present illness and as reviewed below otherwise noncontributory. Social history: No reported history of drug or alcohol abuse. Family history: As per history of present illness and as reviewed below otherwise noncontributory. Physical exam: General: Well-developed well-nourished man who is nontoxic and vital signs were noted by me. He is having oozing of blood out of the left side of his nose and has dried blood on his face. He also has blood in his oropharynx. HEENT: Atraumatic, normocephalic, pupils reactive, negative for conjunctival pallor or scleral icterus, mucous membranes moist, throat clear, neck supple, nontender, trachea midline. The right nare has some mucosal irritation but no active bleeding is appreciated in the left nare has oozing of blood and it is difficult to evaluate where the sources but appears to be very anterior. Lungs: Clear to auscultation, breath sounds equal bilaterally, chest nontender. Heart: S1S2, regular rate and rhythm no overt murmur Abdomen: Soft, nondistended, nontender. NABS Pelvis: Deferred Genitourinary: Deferred. Rectal: Deferred. Extremities: Atraumatic, negative for cords or calf pain. Neurovascular unremarkable. The leg bag is seen at the right lower extremity for his chronic indwelling [place] Neuro: Awake, alert, oriented. Cranial nerves II through XII unremarkable. Cerebellum unremarkable. Motor and sensory unremarkable throughout. Exam nonfocal. Diagnostics: CBC CMP INR and digoxin Therapeutics: Nasal pack was placed cardiac monitoring mustache dressing Keflex Procedure note: As the patient is familiar with our Rhino Rocket packing every explained to him what I would be doing and after trying to get a visual inspection of the nose a 5.5 cm pack was placed without complication. The cuff was inflated and the patient tolerated the procedure well. I will reevaluate the cuff and the patient's symptoms periodically and reevaluate if this size is adequate for him and to ensure that the balloon is adequately inflated. 0150: On reevaluation more air was placed into the balloon and the patient is currently not having any bleeding. We will continue to monitor this and check labs. The patient was having a slight trickle from the right nare and I witnessed him being very rough with the tissue and sticking inside the nose which I reprimanded him about doing as this will cause trouble with old sides of his nose. I told that we will place his name on the expedited follow-up for Dr. Breaux our ENT as he likely needs to have his nose scoped his to see why he has recurrent bleeds on the left side. 0229: Bleeding has stopped and there is only a teeny bit that the patient keeps scabbing from the right side. We will place a mustache dressing. I will give the patient Keflex here and a brief course of Keflex while the pack is in place. We will instruct the to change the mustache dressing as it becomes moist with any dribbling Impression: Epistaxis, left side with history of same Definitive disposition and diagnosis as appropriate pending reevaluation and review of above. - Related Data Allergies Allergy/AdvReac Type Severity Reaction Status Date / Time poison weed Allergy Itching Uncoded 08/16/18 01:27 Home Meds: Home Meds Multivitamin [Multivitamins] 1 each PO DAILY 10/24/13 [History] atorvaSTATin [Lipitor] 10 mg PO BEDTIME 10/24/13 [History] Aspirin [Halfprin] 81 mg PO DAILY 03/11/18 [History] Cyanocobalamin (Vitamin B12) [Vitamin B12] 100 mcg PO DAILY 05/09/18 [History] Acetaminophen [Pain Reliever] 1,000 mg PO Q4HR PRN 06/07/18 [History] Calcium Carbonate/Vitamin D3 [Calcium 500 + Vit D Caplet] 1 tab PO DAILY [History] Diltiazem [Cardizem CD] 180 mg PO DAILY 06/07/18 [History] Rivaroxaban [Xarelto] 20 mg PO DAILY 06/07/18 [History] Digoxin 1 tab PO DAILY 07/02/18 [History] Furosemide 40 mg PO DAILY 07/02/18 [History] Iron Polysaccharide Complex [Poly-Iron] 1 cap PO BID 07/02/18 [History] Mag Oxide/D3/Turmeric Rt Xt [Magnesium-Vit D3-Turmeric Cap] 2 each PO BID [History] Cornelio Red 1 mg PO DAILY 07/02/18 [History] Metoprolol Tartrate 100 mg PO BID 07/02/18 [History] Midodrine 2 tab PO TID 07/02/18 [History] Tamsulosin [Flomax] 0.4 mg PO BEDTIME 07/02/18 [History] Past Medical History HEENT History: Reports: Impaired Vision Other HEENT History: wears glasses Cardiovascular History: Reports: Hypertension, Pacemaker Respiratory History: Reports: Pneumonia, Recurrent Genitourinary History: Reports: Chronic Renal Insuffiency Neurological History: Reports: CVA, Other (See Below) Other Neuro History: stroke 3 years ago Hematologic History: Reports: Anticoagulation Therapy Immunologic History: Reports: None 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 - Infectious Disease History Infectious Disease History: Reports: Chicken Pox, Measles, Mumps - Past Surgical History Head Surgeries/Procedures: Reports: None HEENT Surgical History: Reports: None Cardiovascular Surgical History: Reports: None Respiratory Surgical History: Reports: None Male Surgical History: Reports: None Neurological Surgical History: Reports: None Oncologic Surgical History: Reports: None Social & Family History - Family History Family Medical History: Noncontributory HEENT: Reports: None - Caffeine Use Caffeine Use: Reports: Coffee ED ROS GENERAL - Review of Systems Review Of Systems: ROS reveals no pertinent complaints other than HPI. ED EXAM, GENERAL - Physical Exam Exam: See Below (See dictation) Course - Vital Signs Last Recorded V/S: Last Vital Signs Temp 36.2 C 08/16/18 01:29 Pulse 70 08/16/18 01:29 Resp 18 08/16/18 01:29 BP 108/87 08/16/18 01:29 Pulse Ox 92 L 08/16/18 01:29 - Orders/Labs/Meds Orders: Active Orders 24 hr Category Date Time Status Cardiac Monitoring [RC] . DIRECTED Care 08/16/18 01:37 Active Pulse Oximetry [RC] ASDIRECTED Care 08/16/18 01:37 Active Labs: Laboratory Tests 08/16/18 08/16/18 08/16/18 Range/Units 01:46 01:46 01:46 WBC 8.20 (4.0-11.0) K/uL RBC 3.83 L (4.50-5.90) M/uL Hgb 11.4 L (13.0-17.0) g/dL Hct 36.1 L (38.0-50.0) % MCV 94.3 (80.0-98.0) fL MCH 29.8 (27.0-32.0) pg MCHC 31.6 (31.0-37.0) g/dL RDW Std Deviation 55.8 (28.0-62.0) fl RDW Coeff of Heydi 16 H (11.0-15.0) % Plt Count 169 (150-400) K/uL MPV 11.10 (7.40-12.00) fL Add Manual Diff YES Neutrophils % (Manual) 74 (48.0-80.0) % Band Neutrophils % 2 % Lymphocytes % (Manual) 16 (16.0-40.0) % Monocytes % (Manual) 5 (0.0-15.0) % Metamyelocytes % 2 % Nucleated RBC % 0.0 /100WBC Absolute Seg Neuts 6.1 H (1.4-5.7) Band Neutrophils # 0.2 Lymphocytes # (Manual) 1.3 (0.6-2.4) Monocytes # (Manual) 0.4 (0.0-0.8) Absolute Metamyelocyte 0.2 Nucleated RBCs # 0 K/uL INR 1.46 Sodium 143 (136-148) mmol/L Potassium 4.2 (3.5-5.1) mmol/L Chloride 106 (98-107) mmol/L Carbon Dioxide 28.8 (21.0-32.0) mmol/L BUN 21 H (7.0-18.0) mg/dL Creatinine 1.5 H (0.8-1.3) mg/dL Est Cr Clr Drug Dosing TNP Estimated GFR (MDRD) 44.9 ml/min Glucose 127 H (74-106) mg/dL Calcium 10.0 (8.5-10.1) mg/dL Total Bilirubin 0.4 (0.2-1.0) mg/dL AST 16 (15-37) IU/L ALT 16 (14-63) IU/L Alkaline Phosphatase 77 (46-116) U/L Total Protein 7.1 (6.4-8.2) g/dL Albumin 2.9 L (3.4-5.0) g/dL Globulin 4.2 H (2.6-4.0) g/dL Albumin/Globulin Ratio 0.7 L (0.9-1.6) Digoxin 1.0 (0.9-2.0) ng/mL Meds: Medications Discontinued Medications Generic Name Dose Route Start Last Admin Trade Name Freq PRN Reason Stop Dose Admin Cephalexin 250 mg 08/16/18 02:28 Keflex PO 08/16/18 02:29 ONETIME ONE Departure - Departure Time of Disposition: 02:30 Disposition: Home, Self-Care 01 Condition: Good Clinical Impression: Epistaxis - Discharge Information Forms: ED Department Discharge Additional Instructions: The following information is given to patients seen in the emergency department who are being discharged to home. This information is to outline your options for follow-up care. We provide all patients seen in our emergency department with a follow-up referral. The need for follow-up, as well as the timing and circumstances, are variable depending upon the specifics of your emergency department visit. If you don't have a primary care physician on staff, we will provide you with a referral. We always advise you to contact your personal physician following an emergency department visit to inform them of the circumstance of the visit and for follow-up with them and/or the need for any referrals to a consulting specialist. The emergency department will also refer you to a specialist when appropriate. This referral assures that you have the opportunity for followup care with a specialist. All of these measure are taken in an effort to provide you with optimal care, which includes your followup. Under all circumstances we always encourage you to contact your private physician who remains a resource for coordinating your care. When calling for followup care, please make the office aware that this follow-up is from your recent emergency room visit. If for any reason you are refused follow-up, please contact the emergency department at and ask to speak to the emergency department charge nurse. [facility] Primary care- Internal Medicine and Family [address] [place] [address] [facility] Specialty Care - ENT [address] [place] [id number] [facility] Specialty Care-Urology [address] [place] [address] Please contact your provider and discuss today's events with them and schedule follow-up. Please also call the clinic to be followed up by our ENT specialist Dr. Breaux using resources given to above. The pack that was placed here should remain in place for the next 2-3 days and then he can either be removed here in the ED or with the ENT specialist. [facility] also has ENT specialist that travel here to [place] and you may contact one of them for follow-up. Please take antibiotics as directed and do not manipulate the nasal packing or wipe the right side of the nose roughly as we discussed. Expect some drainage from the nose and bleeding from the nose and replace the mustache dressing as needed. Return to ER as needed and as discussed - My Orders Last 24 Hours: My Active Orders 08/16/18 01:37 Cardiac Monitoring [RC] . DIRECTED Pulse Oximetry [RC] ASDIRECTED - Assessment/Plan Last 24 Hours: My Active Orders 08/16/18 01:37 Cardiac Monitoring [RC] . DIRECTED Pulse Oximetry [RC] ASDIRECTED
[2018-08-16 02:19] LABS: CHLORIDE,CL 106 mmol/L (98-107); SODIUM,NA 143 mmol/L (136-148)
[2018-08-16] MEDS ORDERED: Cephalexin 250 MG Cap PO ONE (02:28)
== END 2018-08-16 03:05 | disposition home or self-care (01) ==
LOC: MW.ED 01:23
DX: R04.0 Epistaxis (principal); I12.9 Hypertensive chronic kidney disease with stage 1 through stage 4 chronic kidney disease, or unspecified chronic kidney disease; N18.9 Chronic kidney disease, unspecified; Z91.048 Other nonmedicinal substance allergy status; Z79.82 Long term (current) use of aspirin; Z79.899 Other long term (current) drug therapy
CPT/HCPCS: 30903; 36415; 80053; 80162; 85025; 85610; 99283; A9270

== ENCOUNTER 2024-04-03 17:18 | Inpatient (IN) | payer MEDICARE, OTHER ==
[2024-04-03 18:06] LABS: HEMATOCRIT 24.2 % (42.0-52.0); HEMOGLOBIN 7.1 g/dL (14.0-18.0); MEAN CORPUSCULAR HEMOGLOBIN 31.4 pg (28.0-32.0); MEAN CORPUSCULAR HGB CONC 29.3 g/dL (32.0-36.0); MEAN CORPUSCULAR VOLUME 107.1 fL (83.0-99.0); NRBC ABSOLUTE 0.02 K/uL (0.00-0.02); NRBC PERCENT 0.3 /100WBC (0.0-0.2); PLATELET COUNT,PLT 91 K/uL (150-400); RED BLOOD CELL COUNT 2.26 M/uL (4.52-5.90); WHITE BLOOD CELL COUNT,WBC 6.99 K/uL (3.9-11.3)
[2024-04-03 18:19] LABS: INR 1.55 (0.86-1.11)
[2024-04-03 18:32] LABS: A/G RATIO 0.7 (0.9-1.6); ALBUMIN 2.9 g/dL (3.4-5.0); BILIRUBIN TOTAL 0.8 mg/dL (0.2-1.0); CALCIUM 9.7 mg/dL (8.5-10.1); CARBON DIOXIDE,CO2 25.6 mmol/L (21.0-32.0); CREATININE 1.2 mg/dL (0.8-1.3); EST CRCL DRUG DOSING (CG) 43.37 mL/min; POTASSIUM,K 4.3 mmol/L (3.5-5.1); PROTEIN TOTAL,TP 7.2 g/dL (6.4-8.2)
[2024-04-03 18:37] LABS: MAGNESIUM 2.1 mg/dL (1.8-2.4)
[2024-04-03 18:49] LABS: BAND ABSOLUTE MAN 0.07; BAND PERCENT MAN 1 %
[2024-04-03 18:50] LABS: EOSINOPHILS ABSOLUTE MAN 0.07 K/uL (0.00-0.45); EOSINOPHILS PERCENT MAN 1 % (0-6); LYMPHOCYTES ABSOLUTE MAN 0.91 K/uL (1.00-4.80); LYMPHOCYTES PERCENT MAN 13 % (24-44); MONOCYTES ABSOLUTE MAN 0.63 K/uL (0.00-0.80); MONOCYTES PERCENT MAN 9 % (0-8)
[2024-04-03 18:51] LABS: ELLIPTOCYTES FEW; HYPOCHROMASIA 1+ SLIGHT; POIKILOCYTOSIS 1+ SLIGHT; TEARDROP CELLS RARE
[2024-04-03 18:54] LABS: ANISOCYTOSIS 1+ SLIGHT
[2024-04-03 18:55] LABS: PLATELET COUNT ESTIMATE ADEQUATE
[2024-04-03 18:56] LABS: SEG NEUTROPHILS ABSOLUTE MAN 5.31 K/uL (1.80-7.70); SEG NEUTROPHILS PERCENT MAN 76 % (41-71)
[2024-04-03] MEDS: Furosemide 20 MG/2 ML VIAL IVPUSH STA (19:18)
[2024-04-03 19:31] LABS: CORONAVIRUS COVID-19 NAA NEGATIVE (NEGATIVE); INFLUENZA A NAA NEGATIVE (NEGATIVE); INFLUENZA B NAA NEGATIVE (NEGATIVE)
[2024-04-03] MEDS ORDERED: Ondansetron 4 MG/2 ML SDV IVPUSH PRN (21:27)
[2024-04-03] MEDS ORDERED: oxyCODONE 5 MG Tab PO PRN (21:27)
[2024-04-03] MEDS ORDERED: Acetaminophen 650 MG Supp RECTAL PRN (21:27)
[2024-04-03] MEDS ORDERED: Polyethylene Glycol 3350 Powder 17 GM Packet PO PRN (21:27)
[2024-04-03] MEDS ORDERED: Acetaminophen 325 MG Tab PO PRN (21:27)
[2024-04-03] MEDS ORDERED: Albuterol/Ipratropium 3.0-0.5 MG/3 ML Neb Soln NEB PRN (21:27)
[2024-04-03] MEDS ORDERED: Melatonin 3 MG Tab PO PRN (21:27)
[2024-04-03] MEDS ORDERED: Acetaminophen 500 MG Tab PO PRN (21:33)
[2024-04-03 22:01] LABS: HEMOGLOBIN A1C 5.1 %
[2024-04-03] MEDS: Midodrine 5 MG Tab PO SCH (22:19)
[2024-04-03] MEDS: Pantoprazole 40 MG in Sodium Chloride 0.9% 10 ML IVPUSH SCH (22:20)
[2024-04-03 22:32] LABS: APPEARANCE,URINE CLEAR; BILIRUBIN,URINE NEGATIVE (NEGATIVE); COLOR,URINE YELLOW; GLUCOSE,URINE NEGATIVE (NEGATIVE); KETONES,URINE NEGATIVE (NEGATIVE); LEUKOCYTE ESTERASE,URINE NEGATIVE (NEGATIVE); NITRITE,URINE NEGATIVE (NEGATIVE); OCCULT BLOOD,URINE SMALL (NEGATIVE); PROTEIN,URINE NEGATIVE (NEGATIVE); UROBILINOGEN,URINE 0.2 EU/dL (<2.0)
[2024-04-03 22:54] LABS: BACTERIA,URINE RARE (NEGATIVE); EPITHELIAL CELLS,URINE RARE (NONE-FEW); WBC,URINE 0-1 (0-5/HPF)
[2024-04-04 01:43] LABS: HEMATOCRIT 26.5 % (42.0-52.0)
[2024-04-04 06:06] LABS: HEMATOCRIT 27.8 % (42.0-52.0); HEMOGLOBIN 8.4 g/dL (14.0-18.0); MEAN CORPUSCULAR HGB CONC 30.2 g/dL (32.0-36.0); MEAN CORPUSCULAR VOLUME 102.6 fL (83.0-99.0); NRBC ABSOLUTE 0.02 K/uL (0.00-0.02); NRBC PERCENT 0.3 /100WBC (0.0-0.2); PLATELET COUNT,PLT 92 K/uL (150-400); RED BLOOD CELL COUNT 2.71 M/uL (4.52-5.90); WHITE BLOOD CELL COUNT,WBC 7.36 K/uL (3.9-11.3)
[2024-04-04 06:37] LABS: CALCIUM 9.6 mg/dL (8.5-10.1); CARBON DIOXIDE,CO2 31.1 mmol/L (21.0-32.0); CREATININE 1.2 mg/dL (0.8-1.3); EST CRCL DRUG DOSING (CG) 44.78 mL/min; MAGNESIUM 2.2 mg/dL (1.8-2.4); POTASSIUM,K 4.4 mmol/L (3.5-5.1)
[2024-04-04 07:23] LABS: BASOPHILS ABSOLUTE MAN 0.07 K/uL (0.00-0.20); BASOPHILS PERCENT MAN 1 % (0-1); EOSINOPHILS ABSOLUTE MAN 0.07 K/uL (0.00-0.45); EOSINOPHILS PERCENT MAN 1 % (0-6); LYMPHOCYTES ABSOLUTE MAN 2.72 K/uL (1.00-4.80); LYMPHOCYTES PERCENT MAN 37 % (24-44); MONOCYTES ABSOLUTE MAN 0.37 K/uL (0.00-0.80); MONOCYTES PERCENT MAN 5 % (0-8); SEG NEUTROPHILS ABSOLUTE MAN 4.12 K/uL (1.80-7.70); SEG NEUTROPHILS PERCENT MAN 56 % (41-71)
[2024-04-04] MEDS ORDERED: Metoprolol Tartrate 50 MG Tab PO SCH (09:00)
[2024-04-04] MEDS: Cyanocobalamin (Vitamin B12) 500 MCG Tab PO SCH (10:23)
[2024-04-04] MEDS: Metoprolol Tartrate 50 MG Tab PO SCH (10:26)
[2024-04-04] MEDS ORDERED: guaiFENesin 600 MG Tab.ER PO SCH (10:45)
[2024-04-04] MEDS: Furosemide 40 MG/4 ML VIAL IVPUSH ONE (12:26)
[2024-04-04] MEDS: Digoxin 125 MCG Tab PO SCH (14:04)
[2024-04-04 14:15] LABS: HEMATOCRIT 26.8 % (42.0-52.0); MEAN CORPUSCULAR HGB CONC 29.9 g/dL (32.0-36.0); MEAN CORPUSCULAR VOLUME 103.9 fL (83.0-99.0); PLATELET COUNT,PLT 84 K/uL (150-400); RED BLOOD CELL COUNT 2.58 M/uL (4.52-5.90); WHITE BLOOD CELL COUNT,WBC 8.16 K/uL (3.9-11.3)
[2024-04-04 15:05] LABS: LYMPHOCYTES ABSOLUTE MAN 0.98 K/uL (1.00-4.80); LYMPHOCYTES PERCENT MAN 12 % (24-44); MONOCYTES ABSOLUTE MAN 1.96 K/uL (0.00-0.80); MONOCYTES PERCENT MAN 24 % (0-8); PLATELET COUNT ESTIMATE DECREASED; SEG NEUTROPHILS ABSOLUTE MAN 5.22 K/uL (1.80-7.70); SEG NEUTROPHILS PERCENT MAN 64 % (41-71)
[2024-04-04] MEDS: atorvaSTATin 10 MG Tab PO SCH (20:28)
[2024-04-04] MEDS: Tamsulosin 0.4 MG Cap.ER PO SCH (20:28)
[2024-04-05 05:51] LABS: HEMATOCRIT 25.8 % (42.0-52.0); HEMOGLOBIN 7.8 g/dL (14.0-18.0); MEAN CORPUSCULAR HEMOGLOBIN 30.8 pg (28.0-32.0); MEAN CORPUSCULAR HGB CONC 30.2 g/dL (32.0-36.0); MEAN PLATELET VOLUME 14.1 fL (9.4-12.4); NRBC ABSOLUTE 0.02 K/uL (0.00-0.02); NRBC PERCENT 0.3 /100WBC (0.0-0.2); PLATELET COUNT,PLT 80 K/uL (150-400); RED BLOOD CELL COUNT 2.53 M/uL (4.52-5.90); WHITE BLOOD CELL COUNT,WBC 7.55 K/uL (3.9-11.3)
[2024-04-05 06:14] LABS: A/G RATIO 0.6 (0.9-1.6); ALBUMIN 2.7 g/dL (3.4-5.0); BILIRUBIN TOTAL 1.1 mg/dL (0.2-1.0); CALCIUM 9.5 mg/dL (8.5-10.1); CARBON DIOXIDE,CO2 30.9 mmol/L (21.0-32.0); CREATININE 1.1 mg/dL (0.8-1.3); EST CRCL DRUG DOSING (CG) 48.85 mL/min; POTASSIUM,K 4.2 mmol/L (3.5-5.1); PROTEIN TOTAL,TP 6.9 g/dL (6.4-8.2)
[2024-04-05 06:51] LABS: EOSINOPHILS ABSOLUTE MAN 0.08 K/uL (0.00-0.45); EOSINOPHILS PERCENT MAN 1 % (0-6); LYMPHOCYTES ABSOLUTE MAN 0.91 K/uL (1.00-4.80); LYMPHOCYTES PERCENT MAN 12 % (24-44); MONOCYTES ABSOLUTE MAN 1.51 K/uL (0.00-0.80); MONOCYTES PERCENT MAN 20 % (0-8); SEG NEUTROPHILS ABSOLUTE MAN 5.06 K/uL (1.80-7.70); SEG NEUTROPHILS PERCENT MAN 67 % (41-71)
[2024-04-05] MEDS: Sodium Ferric Gluconate Cmplex 125 MG in Sodium Chloride 0.9% 100 ML IV ONE (17:01)
[2024-04-05] MEDS: Alteplase 2 MG Vial IVPUSH ONE (19:35)
[2024-04-06 06:15] LABS: HEMATOCRIT 26.1 % (42.0-52.0); MEAN CORPUSCULAR HEMOGLOBIN 31.4 pg (28.0-32.0); MEAN CORPUSCULAR HGB CONC 30.7 g/dL (32.0-36.0); MEAN CORPUSCULAR VOLUME 102.4 fL (83.0-99.0); NRBC ABSOLUTE 0.03 K/uL (0.00-0.02); NRBC PERCENT 0.4 /100WBC (0.0-0.2); PLATELET COUNT,PLT 81 K/uL (150-400); RED BLOOD CELL COUNT 2.55 M/uL (4.52-5.90); WHITE BLOOD CELL COUNT,WBC 8.02 K/uL (3.9-11.3)
[2024-04-06 06:57] LABS: A/G RATIO 0.6 (0.9-1.6); ALBUMIN 2.7 g/dL (3.4-5.0); CALCIUM 9.5 mg/dL (8.5-10.1); CARBON DIOXIDE,CO2 30.3 mmol/L (21.0-32.0); CREATININE 1.1 mg/dL (0.8-1.3); EST CRCL DRUG DOSING (CG) 46.84 mL/min; POTASSIUM,K 4.3 mmol/L (3.5-5.1)
[2024-04-06 07:10] LABS: BAND ABSOLUTE MAN 0.16; BAND PERCENT MAN 2 %; BASOPHILS PERCENT MAN 0 % (0-1); EOSINOPHILS ABSOLUTE MAN 0.08 K/uL (0.00-0.45); EOSINOPHILS PERCENT MAN 1 % (0-6); LYMPHOCYTES ABSOLUTE MAN 1.52 K/uL (1.00-4.80); LYMPHOCYTES PERCENT MAN 19 % (24-44); MONOCYTES ABSOLUTE MAN 2.25 K/uL (0.00-0.80); MONOCYTES PERCENT MAN 28 % (0-8); SEG NEUTROPHILS ABSOLUTE MAN 4.01 K/uL (1.80-7.70); SEG NEUTROPHILS PERCENT MAN 50 % (41-71)
[2024-04-06] MEDS: Furosemide 40 MG/4 ML VIAL IVPUSH ONE (10:12)
== END 2024-04-05 16:43 | disposition home or self-care (01) | DRG 811 ==
LOC: MW.ED 17:18 → MW.MS 19:24
PROVIDERS: ADMIT Family Medicine; ATTEND Family Medicine
PROC: 30233N1 Transfusion of Nonautologous Red Blood Cells into Peripheral Vein, Percutaneous Approach (ICD-10-PCS; principal; 2024-04-03)
PROC: 0JH63WZ Insertion of Totally Implantable Vascular Access Device into Chest Subcutaneous Tissue and Fascia, Percutaneous Approach (ICD-10-PCS; 2024-04-03)
PROC: 02HV33Z Insertion of Infusion Device into Superior Vena Cava, Percutaneous Approach (ICD-10-PCS; 2024-04-03)
DX: D64.89 Other specified anemias (principal); I50.33 Acute on chronic diastolic (congestive) heart failure; I13.0 Hypertensive heart and chronic kidney disease with heart failure and stage 1 through stage 4 chronic kidney disease, or unspecified chronic kidney disease; C34.90 Malignant neoplasm of unspecified part of unspecified bronchus or lung; Z66 Do not resuscitate; N18.9 Chronic kidney disease, unspecified; E78.5 Hyperlipidemia, unspecified; I48.91 Unspecified atrial fibrillation; I49.5 Sick sinus syndrome; H54.7 Unspecified visual loss; I25.10 Atherosclerotic heart disease of native coronary artery without angina pectoris; N40.0 Benign prostatic hyperplasia without lower urinary tract symptoms; D69.6 Thrombocytopenia, unspecified; Z95.0 Presence of cardiac pacemaker; Z79.01 Long term (current) use of anticoagulants; Z91.048 Other nonmedicinal substance allergy status; Z86.73 Personal history of transient ischemic attack (TIA), and cerebral infarction without residual deficits; Z79.899 Other long term (current) drug therapy
CPT/HCPCS: 0240U; 36415; 36430; 71045; 71045-26; 80048; 80053; 80162; 81001; 82947; 83036; 83735; 83880; 84484; 85014; 85018; 85025; 85610; 85730; 86850; 86900; 86901; 86920; 93005; 93010; 96374; 99285; 99285-25; A9270-GY; J1940; J2470; J2916; J2997; J3490; P9016

== ENCOUNTER 2024-04-19 20:56 | Emergency (ER) | payer MEDICARE, OTHER ==
[2024-04-19 21:30] LABS: HEMATOCRIT 26.5 % (42.0-52.0); HEMOGLOBIN 7.9 g/dL (14.0-18.0); MEAN CORPUSCULAR HEMOGLOBIN 30.3 pg (28.0-32.0); MEAN CORPUSCULAR HGB CONC 29.8 g/dL (32.0-36.0); MEAN CORPUSCULAR VOLUME 101.5 fL (83.0-99.0); NRBC ABSOLUTE 0.02 K/uL (0.00-0.02); NRBC PERCENT 0.2 /100WBC (0.0-0.2); PLATELET COUNT,PLT 111 K/uL (150-400); RED BLOOD CELL COUNT 2.61 M/uL (4.52-5.90); WHITE BLOOD CELL COUNT,WBC 9.26 K/uL (3.9-11.3)
[2024-04-19 22:03] LABS: CALCIUM 10.2 mg/dL (8.5-10.1); CARBON DIOXIDE,CO2 33.7 mmol/L (21.0-32.0); CREATININE 1.1 mg/dL (0.8-1.3); EST CRCL DRUG DOSING (CG) 48.85 mL/min; POTASSIUM,K 4.6 mmol/L (3.5-5.1)
[2024-04-19 22:13] LABS: BASOPHILS ABSOLUTE MAN 0.09 K/uL (0.00-0.20); BASOPHILS PERCENT MAN 1 % (0-1); EOSINOPHILS ABSOLUTE MAN 0.19 K/uL (0.00-0.45); EOSINOPHILS PERCENT MAN 2 % (0-6); LYMPHOCYTES ABSOLUTE MAN 2.22 K/uL (1.00-4.80); LYMPHOCYTES PERCENT MAN 24 % (24-44); MONOCYTES PERCENT MAN 14 % (0-8); SEG NEUTROPHILS ABSOLUTE MAN 5.46 K/uL (1.80-7.70); SEG NEUTROPHILS PERCENT MAN 59 % (41-71)
[2024-04-19] MEDS: Furosemide 40 MG/4 ML VIAL IVPUSH ONE (22:23)
== END 2024-04-19 23:37 | disposition home or self-care (01) ==
LOC: MW.ED 20:56
DX: M79.89 Other specified soft tissue disorders (principal); I12.9 Hypertensive chronic kidney disease with stage 1 through stage 4 chronic kidney disease, or unspecified chronic kidney disease; N18.9 Chronic kidney disease, unspecified; Z86.73 Personal history of transient ischemic attack (TIA), and cerebral infarction without residual deficits; Z95.0 Presence of cardiac pacemaker; Z79.899 Other long term (current) drug therapy; Z91.048 Other nonmedicinal substance allergy status
CPT/HCPCS: 36415; 71045; 80048; 80162; 83880; 84484; 85025; 93005; 96374; 99284; J1642; J1940; 93010

== ENCOUNTER 2024-04-25 11:08 | Inpatient (IN) | payer MEDICARE, OTHER ==
[2024-04-25 11:46] LABS: HEMATOCRIT 27.2 % (42.0-52.0); HEMOGLOBIN 8.1 g/dL (14.0-18.0); MEAN CORPUSCULAR HEMOGLOBIN 30.5 pg (28.0-32.0); MEAN CORPUSCULAR HGB CONC 29.8 g/dL (32.0-36.0); MEAN CORPUSCULAR VOLUME 102.3 fL (83.0-99.0); MEAN PLATELET VOLUME 13.9 fL (9.4-12.4); PLATELET COUNT,PLT 120 K/uL (150-400); RED BLOOD CELL COUNT 2.66 M/uL (4.52-5.90)
[2024-04-25 12:00] LABS: INR 1.24 (0.86-1.11)
[2024-04-25 12:25] LABS: A/G RATIO 0.6 (0.9-1.6); ALBUMIN 2.8 g/dL (3.4-5.0); CARBON DIOXIDE,CO2 30.1 mmol/L (21.0-32.0); CREATININE 1.5 mg/dL (0.8-1.3); DIGOXIN 1.2 ng/mL (0.9-2.0); EST CRCL DRUG DOSING (CG) 31.31 mL/min; POTASSIUM,K 3.7 mmol/L (3.5-5.1); PROTEIN TOTAL,TP 7.2 g/dL (6.4-8.2); TSH ULTRASENSITIVE 0.53 uIU/mL (0.36-3.74)
[2024-04-25 12:46] LABS: BAND ABSOLUTE MAN 0.34; BAND PERCENT MAN 2 %; LYMPHOCYTES ABSOLUTE MAN 0.84 K/uL (1.00-4.80); LYMPHOCYTES PERCENT MAN 5 % (24-44); SEG NEUTROPHILS ABSOLUTE MAN 12.26 K/uL (1.80-7.70); SEG NEUTROPHILS PERCENT MAN 73 % (41-71)
[2024-04-25 12:47] LABS: METAMYELOCYTE ABSOLUTE MAN 0.67; METAMYELOCYTE PERCENT MAN 4 %; MONOCYTES ABSOLUTE MAN 1.51 K/uL (0.00-0.80); MONOCYTES PERCENT MAN 9 % (0-8); MYELOCYTE ABSOLUTE MAN 1.18; MYELOCYTE PERCENT MAN 7 %
[2024-04-25 12:48] LABS: POIKILOCYTOSIS 2+ MODERATE
[2024-04-25 12:49] LABS: POLYCHROMASIA 1+ SLIGHT
[2024-04-25 12:50] LABS: OVALOCYTES 1+ SLIGHT
[2024-04-25 12:51] LABS: HELMET CELLS FEW; SCHISTOCYTES OCCASIONAL
[2024-04-25 12:56] LABS: APPEARANCE,URINE CLEAR; BILIRUBIN,URINE NEGATIVE (NEGATIVE); COLOR,URINE YELLOW; GLUCOSE,URINE NEGATIVE (NEGATIVE); KETONES,URINE NEGATIVE (NEGATIVE); LEUKOCYTE ESTERASE,URINE NEGATIVE (NEGATIVE); NITRITE,URINE NEGATIVE (NEGATIVE); OCCULT BLOOD,URINE NEGATIVE (NEGATIVE); PH,URINE 6.5 (5.0-8.0); PROTEIN,URINE TRACE mg/dL (NEGATIVE); UROBILINOGEN,URINE 0.2 EU/dL (<2.0)
[2024-04-25 13:08] LABS: BACTERIA,URINE NOT SEEN (NEGATIVE); EPITHELIAL CELLS,URINE RARE (NONE-FEW); MUCUS,URINE LIGHT (NONE-MOD); RBC,URINE 0-1 (0-2/HPF); WBC,URINE 0-1 (0-5/HPF)
[2024-04-25] MEDS: Sodium Chloride 0.9% 1,000 ML IV ONE (13:27)
[2024-04-25] MEDS: Sodium Chloride 0.9% 10 ML Syringe FLUSH PRN (13:27)
[2024-04-25] MEDS: Sodium Chloride 0.9% 2.5 ML Syringe FLUSH PRN (13:27)
[2024-04-25 13:31] LABS: CALCIUM 9.9 mg/dL (8.5-10.1)
[2024-04-25 13:46] LABS: LACTIC ACID 1.2 mmol/L (0.4-2.0)
[2024-04-25] MEDS: Azithromycin 500 MG in Sodium Chloride 0.9% 250 ML IV ONE (15:07)
[2024-04-25] MEDS: cefTRIAXone 1 GM in Sodium Chloride 0.9% 50 ML IV ONE (15:07)
[2024-04-25] MEDS ORDERED: Acetaminophen 325 MG Tab PO PRN (15:57)
[2024-04-25] MEDS ORDERED: Ondansetron 4 MG Tab.DIS PO PRN (15:57)
[2024-04-25 16:01] LABS: CORONAVIRUS COVID-19 NAA NEGATIVE (NEGATIVE); INFLUENZA A NAA NEGATIVE (NEGATIVE); INFLUENZA B NAA NEGATIVE (NEGATIVE); RESPIRATORY SYNCYTIAL VIR NAA NEGATIVE (NEGATIVE)
[2024-04-25] MEDS ORDERED: Midodrine 5 MG Tab PO PRN (20:44)
[2024-04-25] MEDS: Tamsulosin 0.4 MG Cap.ER PO SCH (20:59)
[2024-04-25] MEDS: atorvaSTATin 10 MG Tab PO SCH (20:59)
[2024-04-26 07:19] LABS: HEMATOCRIT 25.5 % (42.0-52.0); HEMOGLOBIN 7.5 g/dL (14.0-18.0); MEAN CORPUSCULAR HEMOGLOBIN 30.5 pg (28.0-32.0); MEAN CORPUSCULAR HGB CONC 29.4 g/dL (32.0-36.0); MEAN CORPUSCULAR VOLUME 103.7 fL (83.0-99.0); MEAN PLATELET VOLUME 13.5 fL (9.4-12.4); PLATELET COUNT,PLT 97 K/uL (150-400); RED BLOOD CELL COUNT 2.46 M/uL (4.52-5.90); WHITE BLOOD CELL COUNT,WBC 8.17 K/uL (3.9-11.3)
[2024-04-26 07:49] LABS: A/G RATIO 0.6 (0.9-1.6); ALBUMIN 2.6 g/dL (3.4-5.0); BILIRUBIN TOTAL 0.8 mg/dL (0.2-1.0); CALCIUM 9.3 mg/dL (8.5-10.1); CARBON DIOXIDE,CO2 30.6 mmol/L (21.0-32.0); CREATININE 1.2 mg/dL (0.8-1.3); EST CRCL DRUG DOSING (CG) 39.14 mL/min; POTASSIUM,K 3.7 mmol/L (3.5-5.1); PROTEIN TOTAL,TP 6.7 g/dL (6.4-8.2)
[2024-04-26] MEDS: Digoxin 125 MCG Tab PO SCH (08:39)
[2024-04-26 08:57] LABS: BAND ABSOLUTE MAN 0.25; BAND PERCENT MAN 3 %; BASOPHILS ABSOLUTE MAN 0.08 K/uL (0.00-0.20); BASOPHILS PERCENT MAN 1 % (0-1); LYMPHOCYTES ABSOLUTE MAN 1.06 K/uL (1.00-4.80); LYMPHOCYTES PERCENT MAN 13 % (24-44); METAMYELOCYTE ABSOLUTE MAN 0.16; METAMYELOCYTE PERCENT MAN 2 %; MONOCYTES ABSOLUTE MAN 1.23 K/uL (0.00-0.80); MONOCYTES PERCENT MAN 15 % (0-8); MYELOCYTE ABSOLUTE MAN 0.25; MYELOCYTE PERCENT MAN 3 %; SEG NEUTROPHILS ABSOLUTE MAN 5.15 K/uL (1.80-7.70); SEG NEUTROPHILS PERCENT MAN 63 % (41-71)
[2024-04-26 08:58] LABS: ELLIPTOCYTES 1+ SLIGHT; HELMET CELLS FEW; PLATELET COUNT ESTIMATE DECREASED; POIKILOCYTOSIS 2+ MODERATE
[2024-04-26] MEDS: cefTRIAXone 1 GM in Sodium Chloride 0.9% 50 ML IV SCH (14:57)
[2024-04-26] MEDS: Azithromycin 500 MG in Sodium Chloride 0.9% 250 ML IV SCH (14:57)
[2024-04-26] MEDS: Metoprolol Tartrate 50 MG Tab PO SCH (20:12)
[2024-04-27 07:09] LABS: HEMATOCRIT 24.6 % (42.0-52.0); HEMOGLOBIN 7.3 g/dL (14.0-18.0); MEAN CORPUSCULAR HEMOGLOBIN 30.8 pg (28.0-32.0); MEAN CORPUSCULAR HGB CONC 29.7 g/dL (32.0-36.0); MEAN CORPUSCULAR VOLUME 103.8 fL (83.0-99.0); PLATELET COUNT,PLT 92 K/uL (150-400); RED BLOOD CELL COUNT 2.37 M/uL (4.52-5.90)
[2024-04-27 07:34] LABS: A/G RATIO 0.6 (0.9-1.6); ALBUMIN 2.5 g/dL (3.4-5.0); BILIRUBIN TOTAL 0.6 mg/dL (0.2-1.0); CALCIUM 9.2 mg/dL (8.5-10.1); CARBON DIOXIDE,CO2 29.6 mmol/L (21.0-32.0); CREATININE 1.1 mg/dL (0.8-1.3); EST CRCL DRUG DOSING (CG) 42.69 mL/min; MAGNESIUM 2.4 mg/dL (1.8-2.4); POTASSIUM,K 3.9 mmol/L (3.5-5.1); PROTEIN TOTAL,TP 6.6 g/dL (6.4-8.2)
[2024-04-27 08:40] LABS: BAND ABSOLUTE MAN 0.13; BAND PERCENT MAN 2 %; LYMPHOCYTES ABSOLUTE MAN 1.12 K/uL (1.00-4.80); LYMPHOCYTES PERCENT MAN 17 % (24-44); SEG NEUTROPHILS ABSOLUTE MAN 3.83 K/uL (1.80-7.70); SEG NEUTROPHILS PERCENT MAN 58 % (41-71)
[2024-04-27 08:41] LABS: ACANTHOCYTES FEW; BASOPHILS ABSOLUTE MAN 0.07 K/uL (0.00-0.20); BASOPHILS PERCENT MAN 1 % (0-1); ELLIPTOCYTES 1+ SLIGHT; EOSINOPHILS ABSOLUTE MAN 0.07 K/uL (0.00-0.45); EOSINOPHILS PERCENT MAN 1 % (0-6); HELMET CELLS FEW; METAMYELOCYTE ABSOLUTE MAN 0.07; METAMYELOCYTE PERCENT MAN 1 %; MONOCYTES ABSOLUTE MAN 1.25 K/uL (0.00-0.80); MONOCYTES PERCENT MAN 19 % (0-8); MYELOCYTE ABSOLUTE MAN 0.07; MYELOCYTE PERCENT MAN 1 %; POIKILOCYTOSIS 2+ MODERATE
[2024-04-27] MEDS ORDERED: Sodium Chloride 0.9% 2.5 ML Syringe FLUSH PRN (08:51)
[2024-04-27] MEDS ORDERED: Sodium Chloride 0.9% 10 ML Syringe FLUSH PRN (08:51)
[2024-04-27 09:03] LABS: HYPOCHRO 3+ /hpf; MACRO 1+ /hpf; NEUTROPHILS% 64 % (41-71); OVALOCYTE 2+ /hpf
[2024-04-28] MEDS ORDERED: Polyethylene Glycol 3350 Powder 17 GM Packet PO PRN (04:16)
[2024-04-28 05:37] LABS: HEMATOCRIT 25.1 % (42.0-52.0); HEMOGLOBIN 7.6 g/dL (14.0-18.0); MEAN CORPUSCULAR HEMOGLOBIN 31.1 pg (28.0-32.0); MEAN CORPUSCULAR HGB CONC 30.3 g/dL (32.0-36.0); MEAN CORPUSCULAR VOLUME 102.9 fL (83.0-99.0); PLATELET COUNT,PLT 89 K/uL (150-400); RED BLOOD CELL COUNT 2.44 M/uL (4.52-5.90)
[2024-04-28 06:45] LABS: ACANTHOCYTES FEW; BAND ABSOLUTE MAN 0.18; ELLIPTOCYTES 1+ SLIGHT; LYMPHOCYTES PERCENT MAN 25 % (24-44); METAMYELOCYTE ABSOLUTE MAN 0.06; METAMYELOCYTE PERCENT MAN 1 %; MONOCYTES PERCENT MAN 20 % (0-8); MYELOCYTE ABSOLUTE MAN 0.06; MYELOCYTE PERCENT MAN 1 %; POIKILOCYTOSIS 2+ MODERATE; SEG NEUTROPHILS ABSOLUTE MAN 3.18 K/uL (1.80-7.70); SEG NEUTROPHILS PERCENT MAN 53 % (41-71)
[2024-04-28 07:33] LABS: A/G RATIO 0.6 (0.9-1.6); ALBUMIN 2.7 g/dL (3.4-5.0); BILIRUBIN TOTAL 0.7 mg/dL (0.2-1.0); CALCIUM 8.9 mg/dL (8.5-10.1); CARBON DIOXIDE,CO2 26.5 mmol/L (21.0-32.0); CREATININE 1.1 mg/dL (0.8-1.3); EST CRCL DRUG DOSING (CG) 42.69 mL/min; POTASSIUM,K 4.3 mmol/L (3.5-5.1); PROTEIN TOTAL,TP 6.9 g/dL (6.4-8.2)
[2024-04-28] MEDS: Furosemide 40 MG Tab PO SCH (11:53)
[2024-04-29 05:34] LABS: HEMATOCRIT 24.9 % (42.0-52.0); HEMOGLOBIN 7.6 g/dL (14.0-18.0); MEAN CORPUSCULAR HEMOGLOBIN 31.1 pg (28.0-32.0); MEAN CORPUSCULAR HGB CONC 30.5 g/dL (32.0-36.0); PLATELET COUNT,PLT 84 K/uL (150-400); RED BLOOD CELL COUNT 2.44 M/uL (4.52-5.90); WHITE BLOOD CELL COUNT,WBC 6.67 K/uL (3.9-11.3)
[2024-04-29 06:04] LABS: A/G RATIO 0.6 (0.9-1.6); ALBUMIN 2.6 g/dL (3.4-5.0); BILIRUBIN TOTAL 0.6 mg/dL (0.2-1.0); CALCIUM 9.3 mg/dL (8.5-10.1); CARBON DIOXIDE,CO2 28.7 mmol/L (21.0-32.0); CREATININE 1.1 mg/dL (0.8-1.3); EST CRCL DRUG DOSING (CG) 42.69 mL/min; MAGNESIUM 2.1 mg/dL (1.8-2.4); PROTEIN TOTAL,TP 6.9 g/dL (6.4-8.2)
[2024-04-29 07:04] LABS: BAND PERCENT MAN 6 %; SEG NEUTROPHILS ABSOLUTE MAN 3.13 K/uL (1.80-7.70); SEG NEUTROPHILS PERCENT MAN 47 % (41-71)
[2024-04-29 07:05] LABS: BASOPHILS ABSOLUTE MAN 0.13 K/uL (0.00-0.20); BASOPHILS PERCENT MAN 2 % (0-1); EOSINOPHILS ABSOLUTE MAN 0.07 K/uL (0.00-0.45); EOSINOPHILS PERCENT MAN 1 % (0-6); LYMPHOCYTES PERCENT MAN 30 % (24-44); METAMYELOCYTE ABSOLUTE MAN 0.27; METAMYELOCYTE PERCENT MAN 4 %; MONOCYTES ABSOLUTE MAN 0.53 K/uL (0.00-0.80); MONOCYTES PERCENT MAN 8 % (0-8); MYELOCYTE ABSOLUTE MAN 0.13; MYELOCYTE PERCENT MAN 2 %
[2024-04-29] MEDS: Rivaroxaban 15 MG Tab PO SCH (10:17)
[2024-04-29] MEDS: Furosemide 20 MG Tab PO SCH (10:17)
[2024-04-29] MEDS: Bisacodyl 10 MG Supp RECTAL ONE (14:13)
[2024-04-30 06:26] LABS: HEMATOCRIT 26.5 % (42.0-52.0); MEAN CORPUSCULAR HEMOGLOBIN 30.4 pg (28.0-32.0); MEAN CORPUSCULAR HGB CONC 30.2 g/dL (32.0-36.0); MEAN CORPUSCULAR VOLUME 100.8 fL (83.0-99.0); PLATELET COUNT,PLT 93 K/uL (150-400); RED BLOOD CELL COUNT 2.63 M/uL (4.52-5.90)
[2024-04-30 07:07] LABS: A/G RATIO 0.7 (0.9-1.6); ALBUMIN 2.9 g/dL (3.4-5.0); BILIRUBIN TOTAL 0.8 mg/dL (0.2-1.0); CARBON DIOXIDE,CO2 28.5 mmol/L (21.0-32.0); CREATININE 1.2 mg/dL (0.8-1.3); EST CRCL DRUG DOSING (CG) 39.14 mL/min; POTASSIUM,K 4.1 mmol/L (3.5-5.1); PROTEIN TOTAL,TP 6.9 g/dL (6.4-8.2)
[2024-04-30 10:55] LABS: BAND PERCENT MAN 3 %; EOSINOPHILS ABSOLUTE MAN 0.14 K/uL (0.00-0.45); EOSINOPHILS PERCENT MAN 2 % (0-6); LYMPHOCYTES PERCENT MAN 25 % (24-44); MONOCYTES ABSOLUTE MAN 0.54 K/uL (0.00-0.80); MONOCYTES PERCENT MAN 8 % (0-8)
[2024-04-30 10:56] LABS: SEG NEUTROPHILS ABSOLUTE MAN 4.22 K/uL (1.80-7.70); SEG NEUTROPHILS PERCENT MAN 62 % (41-71)
== END 2024-04-30 12:45 | disposition home or self-care (01) | DRG 193 ==
LOC: MW.ED 11:08 → MW.MS 15:52 → OBSVTOIN 04-27 08:46
PROVIDERS: ADMIT Internal Medicine; ATTEND Internal Medicine
DX: J18.1 Lobar pneumonia, unspecified organism (principal); J18.9 Pneumonia, unspecified organism; I50.33 Acute on chronic diastolic (congestive) heart failure; D64.89 Other specified anemias; I13.0 Hypertensive heart and chronic kidney disease with heart failure and stage 1 through stage 4 chronic kidney disease, or unspecified chronic kidney disease; Z91.048 Other nonmedicinal substance allergy status; I95.2 Hypotension due to drugs; Z90.49 Acquired absence of other specified parts of digestive tract; T50.1X5A Adverse effect of loop [high-ceiling] diuretics, initial encounter; E78.5 Hyperlipidemia, unspecified; Z66 Do not resuscitate; D75.839 Thrombocytosis, unspecified; I48.91 Unspecified atrial fibrillation; I25.10 Atherosclerotic heart disease of native coronary artery without angina pectoris; N40.0 Benign prostatic hyperplasia without lower urinary tract symptoms; H54.7 Unspecified visual loss; H91.90 Unspecified hearing loss, unspecified ear; N18.9 Chronic kidney disease, unspecified; D63.1 Anemia in chronic kidney disease; Z95.0 Presence of cardiac pacemaker; Z88.8 Allergy status to other drugs, medicaments and biological substances; Z90.89 Acquired absence of other organs; Z79.899 Other long term (current) drug therapy; Z87.891 Personal history of nicotine dependence
CPT/HCPCS: 0241U; 36415; 51798; 71045; 80053; 80162; 81001; 82272; 83605; 83690; 83735; 83880; 84443; 84484; 85025; 85610; 86850; 86900; 86901; 87040; 93005; 96361; 96365; 96367; 99285; 93010; 96366; 96376; 99223; 99232; 99233; 99239; A9270-GY; G0378; J0456; J0696; J1642; J3490; J7030; J7050

== ENCOUNTER 2024-05-09 09:23 | Emergency (ER) | payer MEDICARE, OTHER ==
[2024-05-09] MEDS: Sodium Chloride 0.9% 2.5 ML Syringe FLUSH PRN (10:20)
[2024-05-09] MEDS: Sodium Chloride 0.9% 1,000 ML IV ONE (10:20)
[2024-05-09] MEDS: Sodium Chloride 0.9% 10 ML Syringe FLUSH PRN (10:20)
[2024-05-09 10:43] LABS: HEMATOCRIT 28.3 % (42.0-52.0); HEMOGLOBIN 8.7 g/dL (14.0-18.0); MEAN CORPUSCULAR HEMOGLOBIN 31.1 pg (28.0-32.0); MEAN CORPUSCULAR HGB CONC 30.7 g/dL (32.0-36.0); MEAN CORPUSCULAR VOLUME 101.1 fL (83.0-99.0); PLATELET COUNT,PLT 108 K/uL (150-400); WHITE BLOOD CELL COUNT,WBC 14.95 K/uL (3.9-11.3)
[2024-05-09 10:59] LABS: A/G RATIO 0.7 (0.9-1.6); BILIRUBIN TOTAL 1.4 mg/dL (0.2-1.0); CALCIUM 9.8 mg/dL (8.5-10.1); CARBON DIOXIDE,CO2 31.9 mmol/L (21.0-32.0); CREATININE 1.2 mg/dL (0.8-1.3); EST CRCL DRUG DOSING (CG) 39.14 mL/min; POTASSIUM,K 4.4 mmol/L (3.5-5.1); PROTEIN TOTAL,TP 7.5 g/dL (6.4-8.2)
[2024-05-09 11:09] LABS: BAND PERCENT MAN 8 %; LYMPHOCYTES ABSOLUTE MAN 0.45 K/uL (1.00-4.80); LYMPHOCYTES PERCENT MAN 3 % (24-44); SEG NEUTROPHILS ABSOLUTE MAN 10.17 K/uL (1.80-7.70); SEG NEUTROPHILS PERCENT MAN 68 % (41-71)
[2024-05-09 11:10] LABS: EOSINOPHILS PERCENT MAN 2 % (0-6); MONOCYTES ABSOLUTE MAN 2.84 K/uL (0.00-0.80); MONOCYTES PERCENT MAN 19 % (0-8)
[2024-05-09 11:38] LABS: APPEARANCE,URINE CLEAR; BILIRUBIN,URINE NEGATIVE (NEGATIVE); COLOR,URINE YELLOW; GLUCOSE,URINE NEGATIVE (NEGATIVE); KETONES,URINE NEGATIVE (NEGATIVE); LEUKOCYTE ESTERASE,URINE NEGATIVE (NEGATIVE); NITRITE,URINE NEGATIVE (NEGATIVE); OCCULT BLOOD,URINE NEGATIVE (NEGATIVE); PH,URINE 6.5 (5.0-8.0); PROTEIN,URINE 30 mg/dL (NEGATIVE); UROBILINOGEN,URINE 0.2 EU/dL (<2.0)
[2024-05-09 11:40] LABS: BACTERIA,URINE NOT SEEN (NEGATIVE); EPITHELIAL CELLS,URINE OCCASIONAL (NONE-FEW); MUCUS,URINE LIGHT (NONE-MOD); RBC,URINE 0-1 (0-2/HPF); WBC,URINE 0-3 (0-5/HPF)
[2024-05-09] MEDS: Iopamidol 755 MG/ML 500 ML Multipack Bottle IVPUSH STA (13:39)
== END 2024-05-09 17:11 ==
LOC: MW.ED 09:23
DX: K40.30 Unilateral inguinal hernia, with obstruction, without gangrene, not specified as recurrent (principal); D64.89 Other specified anemias; I13.0 Hypertensive heart and chronic kidney disease with heart failure and stage 1 through stage 4 chronic kidney disease, or unspecified chronic kidney disease; I50.9 Heart failure, unspecified; N18.9 Chronic kidney disease, unspecified; I48.91 Unspecified atrial fibrillation; Z95.0 Presence of cardiac pacemaker; Z86.73 Personal history of transient ischemic attack (TIA), and cerebral infarction without residual deficits; Z90.49 Acquired absence of other specified parts of digestive tract; Z79.899 Other long term (current) drug therapy; Z91.048 Other nonmedicinal substance allergy status
CPT/HCPCS: 36415; 71045; 74177; 80053; 81001; 83690; 85025; 93005; 96360; 96361; 99285; J3490; J7030; Q9967

== ENCOUNTER 2024-05-29 16:48 | Emergency (ER) | payer MEDICARE, OTHER ==
[2024-05-29] MEDS ORDERED: Sodium Chloride 0.9% 2.5 ML Syringe FLUSH PRN (17:24)
[2024-05-29] MEDS: cefTRIAXone 1 GM Vial IV ONE (17:57)
[2024-05-29] MEDS: Sodium Chloride 0.9% 10 ML Syringe FLUSH PRN (17:57)
[2024-05-29] MEDS ORDERED: Sodium Chloride 0.9% 100 ML IV PRN (17:58)
[2024-05-29] MEDS: Sodium Chloride 0.9% 100 ML ONE (18:11)
[2024-05-29 18:19] LABS: BILIRUBIN,URINE NEGATIVE (NEGATIVE); COLOR,URINE YELLOW; GLUCOSE,URINE NEGATIVE (NEGATIVE); KETONES,URINE NEGATIVE (NEGATIVE); LEUKOCYTE ESTERASE,URINE TRACE (NEGATIVE); NITRITE,URINE NEGATIVE (NEGATIVE); OCCULT BLOOD,URINE MODERATE (NEGATIVE); PH,URINE 5.5 (5.0-8.0); PROTEIN,URINE 30 mg/dL (NEGATIVE); UROBILINOGEN,URINE 0.2 EU/dL (<2.0)
[2024-05-29 18:20] LABS: HEMATOCRIT 21.8 % (42.0-52.0); HEMOGLOBIN 6.8 g/dL (14.0-18.0); MEAN CORPUSCULAR HEMOGLOBIN 30.6 pg (28.0-32.0); MEAN CORPUSCULAR HGB CONC 31.2 g/dL (32.0-36.0); MEAN CORPUSCULAR VOLUME 98.2 fL (83.0-99.0); PLATELET COUNT,PLT 30 K/uL (150-400); RED BLOOD CELL COUNT 2.22 M/uL (4.52-5.90); WHITE BLOOD CELL COUNT,WBC 6.82 K/uL (3.9-11.3)
[2024-05-29 18:24] LABS: APPEARANCE,URINE HAZY
[2024-05-29 18:27] LABS: BACTERIA,URINE 1+ (NEGATIVE); EPITHELIAL CELLS,URINE OCCASIONAL (NONE-FEW); HYALINE CASTS,URINE 0-2 (0-2/LPF)
[2024-05-29 18:28] LABS: MUCUS,URINE LIGHT (NONE-MOD); YEAST,URINE MODERATE
[2024-05-29 18:53] LABS: LACTIC ACID 2.2 mmol/L (0.4-2.0)
[2024-05-29 18:56] LABS: EOSINOPHILS ABSOLUTE MAN 0.07 K/uL (0.00-0.45); EOSINOPHILS PERCENT MAN 1 % (0-6); LYMPHOCYTES ABSOLUTE MAN 0.95 K/uL (1.00-4.80); LYMPHOCYTES PERCENT MAN 14 % (24-44); MONOCYTES PERCENT MAN 19 % (0-8); SEG NEUTROPHILS PERCENT MAN 66 % (41-71)
[2024-05-29 19:00] LABS: A/G RATIO 0.8 (0.9-1.6); ALBUMIN 2.3 g/dL (3.4-5.0); BILIRUBIN TOTAL 0.7 mg/dL (0.2-1.0); C-REACTIVE PROTEIN 4.52 mg/dL (<0.3); CALCIUM 9.3 mg/dL (8.5-10.1); CARBON DIOXIDE,CO2 32.4 mmol/L (21.0-32.0); CREATININE 1.1 mg/dL (0.8-1.3); EST CRCL DRUG DOSING (CG) 42.69 mL/min; POTASSIUM,K 3.7 mmol/L (3.5-5.1); PROTEIN TOTAL,TP 5.2 g/dL (6.4-8.2)
[2024-05-29 19:07] LABS: INR 1.54 (0.86-1.11); PTT,PARTIAL THROMBOPLSTIN TIME 39.5 SEC (23.9-30.7)
[2024-05-29] MEDS: Furosemide 40 MG/4 ML VIAL IVPUSH ONE (21:40)
== END 2024-05-30 00:19 ==
LOC: MW.ED 16:48
DX: J81.0 Acute pulmonary edema (principal); D64.89 Other specified anemias; R60.1 Generalized edema; I13.0 Hypertensive heart and chronic kidney disease with heart failure and stage 1 through stage 4 chronic kidney disease, or unspecified chronic kidney disease; I50.9 Heart failure, unspecified; N18.9 Chronic kidney disease, unspecified; I48.91 Unspecified atrial fibrillation; Z95.0 Presence of cardiac pacemaker; Z79.899 Other long term (current) drug therapy; Z79.01 Long term (current) use of anticoagulants; Z91.048 Other nonmedicinal substance allergy status
CPT/HCPCS: 36415; 36430; 71045; 80053; 81001; 83605; 83690; 83880; 84145; 84484; 85025; 85610; 85730; 86140; 86850; 86900; 86901; 86920; 87040; 87086; 93005; 96365; 96375; 99285; J0696; J1940; J3490; P9016; 93010; 99284